=== PATIENT | male | born 1930 | race Caucasian/White ===

== ENCOUNTER 2017-07-31 13:46 | Inpatient (IN) | payer MEDICARE, MEDICAID ==
[2017-07-31 14:43] LABS: % BASOPHILS 0.1 % (0.0-2.0); % EOSINOPHILS 0.2 % (0.0-5.0); % LYMPHOCYTES 12.9 % (20.0-50.0); % MONOCYTES 5.6 % (2.0-10.0); % NEUTROPHILS 81.2 % (40.0-80.0); HEMATOCRIT 35.9 % (39.0-49.0); HEMOGLOBIN 12.2 gm/dL (12.6-17.4); MEAN CELL VOLUME 97.8 fl (80-99); MEAN CORPUSCULAR HEMOGLOBIN 33.2 pg (27.0-31.0); MEAN PLATELET VOLUME 7.2 fl; NEUTROPHILE ABSOLUTE 8.7 Th/cmm (1.8-8.0); PLATELET COUNT 187 Th/cmm (150-400); RED BLOOD COUNT 3.66 Mil/cmm (3.80-5.80); RED CELL DISTRIBUTION WIDTH 14.5 % (11.5-20.0); WHITE BLOOD COUNT 10.7 Th/cmm (4.8-10.8)
--- NOTE | 2017-07-31 14:43 | Diagnostic Imaging Report ---
CHEST X-RAY: AP view INDICATION: Shortness of breath COMPARISON: None FINDINGS: Bilateral pleural plaque formation is seen with parenchymal changes also noted. Heart size is normal. Bibasal pleural thickening is noted. Atherosclerosis is noted. Degenerative changes of the spine are noted. 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 Parenchymal disease is also seen greatest within the right lower lung zone. Findings may be chronic, however, superimposed acute infiltrate cannot be excluded. Please correlate clinically. Atherosclerotic vascular disease.
--- NOTE | 2017-07-31 14:44 | ED Physician Chart ---
Chief Complaint/HPI - Patient Information Date Seen:: 07/31/17 Time Seen:: 14:20 Chief Complaint:: AGRESSSIVE History of Present Illness:: THIS IS AN 87 YO MALE WHO HAS BEEN GETTING AGGRESSIVE LATELY AND IS BEING TAKEN CARE OF AT HOME. HIS FAMILY THINKS THAT HE NEEDS GEROPSYCH TREATMENT BECAUSE OF HIS COMBATIVENESS. Allergies:: Allergies Allergy/AdvReac Type Severity Reaction Status Date / Time No Known Allergies Allergy Verified 07/31/17 14:06 Vitals:: Vital Signs - 8 hr 07/31/17 14:13 Temp 97.8 F HR 74 RR 16 BP 129/74 O2 Sat % 96 Historian:: Family Member Review:: Nurse's Note Reviewed Review of Systems - Review of Systems General/Constitutional: No fever, No chills, No weight loss, No weakness, No diaphoresis, No edema, No loss of appetite Skin: No skin lesions, No rash, No bruising Head: No headache, No light-headedness Eyes: No loss of vision, No pain, No diplopia ENT: No earache, No nasal drainage, No sore throat, No tinnitus Neck: No neck pain, No swelling, No thyromegaly, No stiffness, No mass noted Cardio Vascular: No chest pain, No palpitations, No PND, No orthopnea, No edema Pulmonary: No SOB, No cough, No sputum, No wheezing GI: No nausea, No vomiting, No diarrhea, No pain, No melena, No hematochezia, No constipation, No hematemesis G/U: No dysuria, No frequency, No hematuria Musculoskeletal: No bone or joint pain, No back pain, No muscle pain Endocrine: No polyuria, No polydipsia Psychiatric: Prior psych history, No depression, No anxiety, No suicidal ideation Hematopoietic: No bruising, No lymphadenopathy Allergic/Immuno: No urticaria, No angioedema Neurological: No syncope, No focal symptoms, Weakness, No paresthesia, No headache, No seizure, No dizziness, Confusion, No vertigo Past Medical History - Past Medical History Obtainable: Yes Past Medical History: HTN, Asthma/COPD, CVA/TIA, Dementia Family History: None Social History: Non Smoker, No Alcohol, No Drug Use, Other (FAMILY) Family Medical History - Family Member Mother History Unknown: Yes Hx Family Cancer: No Hx Family Coronary Artery Disease: No Hx Family Hypertension: No Hx Family Diabetes: No Hx Family Seizures: No Physical Exam - Physical Examination General/Constitutional: Awake, Well-developed, well-nourished, Alert, No distress, GCS 15, Non-toxic appearing Other Gen/Cons comments:: IN A WHEEL CHAIR Head: Atraumatic Eyes: Lids, conjuctiva normal, PERRL, EOMI Skin: Nl inspection, No rash, No skin lesions, No ecchymosis, Well hydrated, No lymphadenopathy ENMT: External ears, nose nl, Nasal exam nl, Lips, teeth, gums nl Other ENMT comments:: [place] Neck: Nontender, Full ROM w/o pain, No JVD, No nuchal rigidity, No bruit, No mass, No stridor Respiratory: Nl effort/Exclusion, Clear to Auscultation, No Wheeze/Rhonchi/Rales Cardio Vascular: RRR, No murmur, gallop, rubs, NL S1 S2 GI: No tenderness/rebounding/guarding, No organomegaly, No hernia, Normal BS's, Nondistended, No mass/bruits, No McBurney tenderness : No CVA tenderness Extremities: No tenderness or effusion, Full ROM, normal strength in all extremities, No edema, Normal digits & nails Neuro/Psych: Alert/oriented, DTR's symmetric, Normal sensory exam, Judgement/ insight normal, Mood normal, No focal deficits Other Neuro/Psych comments:: LOWER EXTREMITY WEAKNESS Misc: normal gait, Normal back, No paraspinal tenderness Labs/Radiology/EKG Results - Lab Results Results: Abnormal Lab Results 07/31/17 07/31/17 07/31/17 14:25 14:25 14:25 WBC 10.7 RBC 3.66 L Hgb 12.2 L Hct 35.9 L MCV 97.8 MCH 33.2 H MCHC Differential 34.0 RDW 14.5 Plt Count 187 MPV 7.2 Neutrophils % 81.2 H Lymphocytes % 12.9 L Monocytes % 5.6 Eosinophils % 0.2 Basophils % 0.1 PT 10.0 INR 0.96 PTT (Actin FS) 25.5 L Sodium Potassium Chloride Carbon Dioxide Anion Gap BUN Creatinine Est GFR ( Amer) Est GFR (Non-Af Amer) BUN/Creatinine Ratio Glucose Calcium Total Bilirubin AST ALT Alkaline Phosphatase Total Protein Albumin Globulin Albumin/Globulin Ratio Triglycerides 187 H Cholesterol 162 LDL Cholesterol Direct 86 HDL Cholesterol 53 07/31/17 14:25 WBC RBC Hgb Hct MCV MCH MCHC Differential RDW Plt Count MPV Neutrophils % Lymphocytes % Monocytes % Eosinophils % Basophils % PT INR PTT (Actin FS) Sodium 131 L Potassium 4.4 Chloride 97 L Carbon Dioxide 26.5 Anion Gap 11.9 BUN 21 Creatinine 1.3 Est GFR ( Amer) TNP Est GFR (Non-Af Amer) TNP BUN/Creatinine Ratio 16.2 Glucose 180 H Calcium 9.4 Total Bilirubin 0.6 AST 25 ALT 10 Alkaline Phosphatase 56 Total Protein 7.4 Albumin 3.8 L Globulin 3.6 Albumin/Globulin Ratio 1.1 Triglycerides Cholesterol LDL Cholesterol Direct HDL Cholesterol - Radiology Results Results: CHEST X-RAY = DIFFUSE BILATERAL PLEURAL PLAQUE. - EKG Interpretations EKG Time:: 14:03 Rate & Rhythm: RATE=71 NSR Inez: LEFT AXIS Intervals: FLIPPED T WAVES IN EVERY LATERAL LEAD Assessment - Assessment General Assessment: ELEVATED TROPONIN MENTAL DISORDER ED Septic Shock - . Is Septic Shock (SBP<90, OR Lactate>4 mmol\L) present?: No - <6hrs of presentation: Vital Signs: Vital Signs - 8 hr 07/31/17 14:13 Temp 97.8 F HR 74 RR 16 BP 129/74 O2 Sat % 96 Reassessment (Disposition) - Reassessment Reassessment Condition:: Unchanged - Diagnosis Diagnosis:: ELEVATED TROPONIN MENTAL DISORDER. - Patient Disposition Discharge/Transfer:: Acute Care w/in this hosp Admitted to:: Telemetry Admitting Medical Physician:: Enzo Adames Admitting Psych Physician:: Barbi Colon Condition at Disposition:: Unchanged ED Discharge Plan - Patient Disposition Admit/Discharge/Transfer: Acute Care w/in this hosp Condition at Disposition: Unchanged Instructions: Psychosis
[2017-07-31 14:46] LABS: INR 0.96 (0.5-1.4)
[2017-07-31 14:51] LABS: ALB/GLOB RATIO 1.1 (1.0-1.8); ALKALINE PHOSPHATASE 56 U/L (34-104); ANION GAP 11.9 (7.0-16.0); BILIRUBIN,TOTAL 0.6 mg/dL (0.3-1.0); BUN - UREA NITROGEN 21 mg/dL (7-25); BUN/CREATININE RATIO 16.2; CALCIUM SERUM 9.4 mg/dL (8.6-10.3); CARBON DIOXIDE 26.5 mEq/L (21.0-31.0); CHLORIDE 97 mEq/L (98-107); CHOLESTEROL 162 mg/dL (<200); CREATININE - SERUM 1.3 mg/dL (0.7-1.3); GLUCOSE 180 mg/dL (70-105); POTASSIUM SERUM 4.4 mEq/L (3.5-5.1); SGOT 25 U/L (13-39); SGPT/ALT 10 U/L (7-52); SODIUM SERUM 131 mEq/L (136-145); TRIGLYCERIDES 187 mg/dL (<150)
[2017-07-31] MEDS ORDERED: Sodium Chloride 0.9% 1,000 ML IV ONE (19:45)
[2017-07-31] MEDS ORDERED: Enoxaparin 60 mg/0.6 mL 0.6mL Syr SUBQ SCH (19:45)
[2017-07-31] MEDS: Enoxaparin 60 mg/0.6 mL 0.6mL Syr SUBQ SCH (20:53)
--- NOTE | 2017-08-01 02:25 | Consultation ---
DATE OF CONSULTATION: 07/31/[address] Adames. HISTORY AND PHYSICAL: This is an 87-year-old male patient, who was brought in for Geropsych evaluation due to aggressive behavior and combative during the Emergency Room. The patient had elevated troponin level and the patient is admitted. Cardiology consult is requested. PAST MEDICAL HISTORY: The patient has a history of hypertension, asthma, COPD, CVA, TIA, dementia. FAMILY HISTORY: Unremarkable. SOCIAL HISTORY: No history of smoking or alcohol abuse. Allergies: None. PHYSICAL EXAMINATION: VITAL SIGNS: Blood pressure 130/80, pulse 88, respirations . HEAD: Normocephalic. No lumps or bumps. EYES: Pupils equal, reactive to light. Fundi show AV nicking, sclerae white, conjunctivae pink. NECK: Carotid 2+. Normal upstroke. JVD flat. Thyroid not palpable. Lymph nodes not palpable. CHEST: Shows increased AP diameter. No kyphosis, scoliosis. LUNGS: Bilateral bronchovesicular breath sounds. Occasional wheeze. HEART: PMI fifth intercostal space with lateral to midclavicular line. S1, S2. No S3, soft S4. Systolic murmur, grade 2/6, lower left sternal border without radiation. ABDOMEN: Soft. Liver and spleen are not palpable. No organomegaly. Bowel sounds are active. NEUROLOGIC: Unremarkable. EXTREMITIES: Peripheral pulses 2+. No pedal edema. CLINICAL IMPRESSION: 1. Non-ST elevation myocardial infarction. 2. Hypertension. 3. Asthma. 4. Chronic obstructive pulmonary disease. 5. CVA. 6. Transient ischemic attack. 7. Dementia. PLAN: Get echocardiogram, troponin level. Start the patient on Lovenox. JOB# [id number]
--- NOTE | 2017-08-01 08:21 | History and Physical ---
History of Present Illness - HPI Chief Complaint: Increased in agitation HPI: This is a patient that was send to [facility] but in ER was found elevated troponins and was sent to Telemetry. Vital Signs: Last Vital Signs Temp 98.8 F 08/01/17 04:00 Pulse 72 08/01/17 04:00 Resp 19 08/01/17 04:00 BP 128/62 08/01/17 04:00 Pulse Ox 96 08/01/17 04:00 Past Medical History Cardiovascular: Report: CAD, HTN Pulmonary: Report: Other (Possible asbestosis) [employer]: Report: Dementia GI: Report: No Pertinent Hx Psych: Report: Psychosis Musculoskeletal: Report: No Pertinent Hx Rheumatologic: Report: No pertinent Hx Infectious Disease: Report: No Pertinent Hx Renal/: Report: No Pertinent Hx Endocrine: Report: No Pertinent Hx Dermatology: Report: No Pertinent Hx - Past Surgical History Past Surgical History: No pertinent Hx Family Medical History - Family Member Mother History Unknown: Yes Hx Family Cancer: No Hx Family Coronary Artery Disease: No Hx Family Hypertension: No Hx Family Diabetes: No Hx Family Seizures: No Social History Smoke: No Alcohol: None Drugs: None Lives: With Family Domestic Violence: Negative Health Maintenance Health Maintenance: Cholesterol - Medications Home Medications: Home Medication Medication Instructions Recorded Type Clonidine HCl [Catapres] 0.1 mg PO Q6HR PRN 07/31/[address] [Depakote DR] 250 mg PO BID 07/31/17 History Lorazepam [Ativan] 1 mg PO Q4HR PRN 07/31/17 History Lovastatin [Altoprev] 40 mg PO DAILY 07/31/17 History Sennosides A and B [Senna] 8.6 mg PO DAILY 07/31/17 History Trazodone HCl 100 mg PO HS 07/31/17 History Triazolam 0.25 mg PO HS 07/31/17 History - Allergies Allergies/Adverse Reactions: Allergies Allergy/AdvReac Type Severity Reaction Status Date / Time No Known Allergies Allergy Verified 07/31/17 14:06 Review of Systems - Review of Systems Constitutional: Report: No Significant Eyes: Report: No Significant ENT: Report: No Significant Respiratory: Report: No Significant Cardiovascular: Report: No Significant Gastrointestinal: Report: No Significant Genitourinary: Report: No Significant Musculoskeletal: Report: No Significant Skin: Report: No Significant Neurological: Report: Other (Increased in agitation) Physical Exam - Physical Exam HEENT: Report: Ears Nose Throat within normal limits Neck: Report: Within normal limits Cardiovascular Systems: Report: Regular, Rate and Rhythm Respiratory: Report: Breath Sounds are within normal limits Abdomen: Report: Non-tender to palpation Back: Report: Inspection of back is within normal limits. Extremities: Report: Non-tender to palpation. Skin: Report: Color of skin is within normal limits Neuro/Psych: Report: Disoriented to name time or place - Lab Results All Lab Results last 24 hours: Laboratory Last Values WBC 10.7 Th/cmm (4.8-10.8) 07/31/17 14:25 RBC 3.66 Mil/cmm (3.80-5.80) L 07/31/17 14:25 Hgb 12.2 gm/dL (12.6-17.4) L 07/31/17 14:25 Hct 35.9 % (39.0-49.0) L 07/31/17 14:25 MCV 97.8 fl (80-99) 07/31/17 14:25 MCH 33.2 pg (27.0-31.0) H 07/31/17 14:25 MCHC Differential 34.0 pg (28.0-36.0) 07/31/17 14:25 RDW 14.5 % (11.5-20.0) 07/31/17 14:25 Plt Count 187 Th/cmm (150-400) 07/31/17 14:25 MPV 7.2 fl 07/31/17 14:25 Neutrophils % 81.2 % (40.0-80.0) H 07/31/17 14:25 Lymphocytes % 12.9 % (20.0-50.0) L 07/31/17 14:25 Monocytes % 5.6 % (2.0-10.0) 07/31/17 14:25 Eosinophils % 0.2 % (0.0-5.0) 07/31/17 14:25 Basophils % 0.1 % (0.0-2.0) 07/31/17 14:25 PT 10.0 SECONDS (9.5-11.5) 07/31/17 14:25 INR 0.96 (0.5-1.4) 07/31/17 14:25 PTT (Actin FS) 25.5 SECONDS (26.0-38.0) L 07/31/17 14:25 Sodium 131 mEq/L (136-145) L 07/31/17 14:25 Potassium 4.4 mEq/L (3.5-5.1) 07/31/17 14:25 Chloride 97 mEq/L (98-107) L 07/31/17 14:25 Carbon Dioxide 26.5 mEq/L (21.0-31.0) 07/31/17 14:25 Anion Gap 11.9 (7.0-16.0) 07/31/17 14:25 BUN 21 mg/dL (7-25) 07/31/17 14:25 Creatinine 1.3 mg/dL (0.7-1.3) 07/31/17 14:25 Est GFR ( Amer) TNP 07/31/17 14:25 Est GFR (Non-Af Amer) TNP 07/31/17 14:25 BUN/Creatinine Ratio 16.2 07/31/17 14:25 Glucose 180 mg/dL (70-105) H 07/31/17 14:25 Hemoglobin A1c % 5.2 % (4.0-6.0) 07/31/17 14:25 Calcium 9.4 mg/dL (8.6-10.3) 07/31/17 14:25 Total Bilirubin 0.6 mg/dL (0.3-1.0) 07/31/17 14:25 AST 25 U/L (13-39) 07/31/17 14:25 ALT 10 U/L (7-52) 07/31/17 14:25 Alkaline Phosphatase 56 U/L (34-104) 07/31/17 14:25 Troponin I 0.05 ng/mL (0.01-0.05) 08/01/17 06:15 Total Protein 7.4 gm/dL (6.0-8.3) 07/31/17 14:25 Albumin 3.8 gm/dL (4.2-5.5) L 07/31/17 14:25 Globulin 3.6 gm/dL 07/31/17 14:25 Albumin/Globulin Ratio 1.1 (1.0-1.8) 07/31/17 14:25 Triglycerides 187 mg/dL (<150) H 07/31/17 14:25 Cholesterol 162 mg/dL (<200) 07/31/17 14:25 LDL Cholesterol Direct 86 mg/dL (75-193) 07/31/17 14:25 HDL Cholesterol 53 mg/dL (23-92) 07/31/17 14:25 TSH 2.27 uIU/ml (0.34-5.60) 07/31/17 14:25 Laboratory Results - last 24 hr 08/01/17 06:15 Troponin I 0.05 - Assessment Assessment: patient is awake, confused, not cooperative. Dx: Elevated troponins, increased in agitation, Psychosis, Dementia - Plan Plan: Consult with Cardio and Psychiatry requested. Continue with home meds. Will continue to monitor.
[2017-08-01] MEDS ORDERED: Pneumococcal Vaccine 0.5 mL Vial IM ONE (09:00)
[2017-08-01] MEDS ORDERED: LOVASTATIN 40 MG PO SCH (09:00)
--- NOTE | 2017-08-01 12:12 | Consultation ---
DATE OF CONSULTATION: 08/01/2017 HISTORY OF PRESENT ILLNESS: An 87-year-old male, more aggressive and more confused. Family concerned, more combative. On [id number], the patient is AO to name, place. He has no idea why he is here. He does not know the month, the year, and the day of the week. Denies overt depression, poor historian, states he has absolutely no medical problems. PAST PSYCHIATRIC HISTORY: Dementia per documentation. FAMILY HISTORY: None. SOCIAL HISTORY: The patient states he was born in [place], , 4 kids. Denies drugs. Denies alcohol. Denies tobacco. Believes he is in [facility]. PAST MEDICAL HISTORY: Hypertension, CVA, asthma and COPD. MENTAL STATUS EXAMINATION: Stated age, appearing suspicious, under the blankets only exposing one eye. Mood "okay." Affect flat. Thought processes were disoriented. No overt SI or HI, but seems suspicious and he was combative at home, more confused. Poor insight, poor judgment, and poor impulse control. PROVISIONAL DIAGNOSES: Dementia with behavioral disturbances; psychosis, unspecified; mood, unspecified. MEDICAL: Please see full H and P. RECOMMENDATIONS AND PLAN: The patient will likely need Geropsych placement due to his behavioral disturbances. We will add Aricept and Namenda, consider antipsychotic. JOB# [id number]
--- NOTE | 2017-08-01 20:46 | Consultation ---
DATE OF CONSULTATION: 07/31/[address] Enzo Adames. HISTORY AND PHYSICAL: This is an 87-year-old male patient who was brought to the Emergency Room for confusion and agitation. In the Emergency Room, the patient was found to have slightly elevated troponin level and hence the patient is admitted to telemetry bed. PAST MEDICAL HISTORY: Stable angina, hypertension, and psychosis. FAMILY HISTORY: Unremarkable. SOCIAL HISTORY: No history of smoking or alcohol abuse. ALLERGIES: None. PHYSICAL EXAMINATION: VITAL SIGNS: Blood pressure 130/80, pulse 70, and respirations 20. HEAD: Normocephalic. No lumps or bumps. EYES: Pupils are equal and reactive to light. Fundi show AV nicking, sclerae white, and conjunctivae pink. NECK: Carotid 2+. Normal upstroke. JVD flat. Thyroid not palpable. Lymph nodes not palpable. CHEST: Shows increased AP diameter. No kyphosis or scoliosis. LUNGS: Bilateral bronchovesicular breath sounds. Occasional wheeze. No rales. HEART: PMI fifth intercostal space with lateral to midclavicular line. S1 and S2. No S3, soft S4, systolic murmur, grade 2/6, lower left sternal border without radiation. ABDOMEN: Soft. Liver and spleen not palpable. No organomegaly. Bowel sounds are active. NEUROLOGIC: Unremarkable. EXTREMITIES: Peripheral pulses 2+. No pedal edema. CLINICAL IMPRESSION: Non-ST elevation myocardial infarction, stable angina, hypertension, and psychosis. PLAN: Admit the patient. We will continue to monitor on telemetry bed. Repeat troponin level. Get an echocardiogram. JOB# [id number]
[2017-08-01] MEDS ORDERED: Non-Formulary Item 1 EA (Trazodone Hcl [Trazodone Hcl] 100 MG) PO SCH (21:00)
[2017-08-01] MEDS ORDERED: TRIAZOLAM 0.25 MG PO SCH (21:00)
[2017-08-01] MEDS: Enoxaparin 60 mg/0.6 mL 0.6mL Syr SUBQ SCH (21:41)
[2017-08-02 05:37] LABS: % BASOPHILS 0.6 % (0.0-2.0); % EOSINOPHILS 1.3 % (0.0-5.0); % LYMPHOCYTES 38.6 % (20.0-50.0); % MONOCYTES 11.3 % (2.0-10.0); % NEUTROPHILS 48.2 % (40.0-80.0); HEMOGLOBIN 11.9 gm/dL (12.6-17.4); MEAN CELL VOLUME 98.3 fl (80-99); MEAN CORPUSCULAR HEMOGLOBIN 33.5 pg (27.0-31.0); MEAN CORPUSCULAR HGB CONC 34.1 pg (28.0-36.0); MEAN PLATELET VOLUME 7.3 fl; NEUTROPHILE ABSOLUTE 2.4 Th/cmm (1.8-8.0); PLATELET COUNT 168 Th/cmm (150-400); RED BLOOD COUNT 3.56 Mil/cmm (3.80-5.80); RED CELL DISTRIBUTION WIDTH 14.3 % (11.5-20.0)
[2017-08-02 05:49] LABS: WHITE BLOOD COUNT 5.1 Th/cmm (4.8-10.8)
[2017-08-02 06:02] LABS: ALB/GLOB RATIO 1.1 (1.0-1.8); ALKALINE PHOSPHATASE 44 U/L (34-104); ANION GAP 8.9 (7.0-16.0); BILIRUBIN,TOTAL 0.5 mg/dL (0.3-1.0); BUN - UREA NITROGEN 15 mg/dL (7-25); BUN/CREATININE RATIO 21.4; CALCIUM SERUM 9.2 mg/dL (8.6-10.3); CHLORIDE 104 mEq/L (98-107); CREATININE - SERUM 0.7 mg/dL (0.7-1.3); GLUCOSE 103 mg/dL (70-105); POTASSIUM SERUM 3.9 mEq/L (3.5-5.1); SGOT 24 U/L (13-39); SGPT/ALT 10 U/L (7-52); SODIUM SERUM 137 mEq/L (136-145)
--- NOTE | 2017-08-02 09:32 | General Progress Note ---
Subjective - Review of Systems Service Date: 08/02/17 Subjective: I am fine Objective - Results Result Diagrams: 08/02/17 04:50 08/02/17 04:50 Recent Labs: Laboratory Last Values WBC 5.1 Th/cmm (4.8-10.8) D 08/02/17 04:50 RBC 3.56 Mil/cmm (3.80-5.80) L 08/02/17 04:50 Hgb 11.9 gm/dL (12.6-17.4) L 08/02/17 04:50 Hct 35.0 % (39.0-49.0) L 08/02/17 04:50 MCV 98.3 fl (80-99) 08/02/17 04:50 MCH 33.5 pg (27.0-31.0) H 08/02/17 04:50 MCHC Differential 34.1 pg (28.0-36.0) 08/02/17 04:50 RDW 14.3 % (11.5-20.0) 08/02/17 04:50 Plt Count 168 Th/cmm (150-400) 08/02/17 04:50 MPV 7.3 fl 08/02/17 04:50 Neutrophils % 48.2 % (40.0-80.0) 08/02/17 04:50 Lymphocytes % 38.6 % (20.0-50.0) 08/02/17 04:50 Monocytes % 11.3 % (2.0-10.0) H 08/02/17 04:50 Eosinophils % 1.3 % (0.0-5.0) 08/02/17 04:50 Basophils % 0.6 % (0.0-2.0) 08/02/17 04:50 PT 10.0 SECONDS (9.5-11.5) 07/31/17 14:25 INR 0.96 (0.5-1.4) 07/31/17 14:25 PTT (Actin FS) 25.5 SECONDS (26.0-38.0) L 07/31/17 14:25 Sodium 137 mEq/L (136-145) 08/02/17 04:50 Potassium 3.9 mEq/L (3.5-5.1) 08/02/17 04:50 Chloride 104 mEq/L (98-107) 08/02/17 04:50 Carbon Dioxide 28.0 mEq/L (21.0-31.0) 08/02/17 04:50 Anion Gap 8.9 (7.0-16.0) 08/02/17 04:50 BUN 15 mg/dL (7-25) 08/02/17 04:50 Creatinine 0.7 mg/dL (0.7-1.3) 08/02/17 04:50 Est GFR ( Amer) TNP 08/02/17 04:50 Est GFR (Non-Af Amer) TNP 08/02/17 04:50 BUN/Creatinine Ratio 21.4 08/02/17 04:50 Glucose 103 mg/dL (70-105) 08/02/17 04:50 Hemoglobin A1c % 5.2 % (4.0-6.0) 07/31/17 14:25 Calcium 9.2 mg/dL (8.6-10.3) 08/02/17 04:50 Total Bilirubin 0.5 mg/dL (0.3-1.0) 08/02/17 04:50 AST 24 U/L (13-39) 08/02/17 04:50 ALT 10 U/L (7-52) 08/02/17 04:50 Alkaline Phosphatase 44 U/L (34-104) 08/02/17 04:50 Troponin I 0.04 ng/mL (0.01-0.05) 08/01/17 16:31 Total Protein 6.8 gm/dL (6.0-8.3) 08/02/17 04:50 Albumin 3.5 gm/dL (4.2-5.5) L 08/02/17 04:50 Globulin 3.3 gm/dL 08/02/17 04:50 Albumin/Globulin Ratio 1.1 (1.0-1.8) 08/02/17 04:50 Triglycerides 187 mg/dL (<150) H 07/31/17 14:25 Cholesterol 162 mg/dL (<200) 07/31/17 14:25 LDL Cholesterol Direct 86 mg/dL (75-193) 07/31/17 14:25 HDL Cholesterol 53 mg/dL (23-92) 07/31/17 14:25 TSH 2.27 uIU/ml (0.34-5.60) 07/31/17 14:25 RPR NONREACTIVE (NONREACTIVE) 07/31/17 14:25 - Physical Exam Vitals and I&O: Vital Signs Temp 97.8 F 08/02/17 04:00 Pulse 75 08/02/17 04:00 Resp 19 08/02/17 04:00 BP 129/80 08/02/17 04:00 Pulse Ox 98 08/02/17 04:00 Intake & Output 08/01/17 08/02/17 08/02/17 18:59 06:59 18:59 Intake Total 720 Output Total 480 Balance 240 Weight (lbs) 54.431 kg 55.021 kg Intake: Oral 720 Output: Urine 480 Other: # Bowel Movements 1 Stool Characteristics Soft Soft Brown Brown Active Medications: Current Medications Divalproex Sodium (Depakote Dr) 250 mg PO BID [facility] PRN Reason: Protocol Stop: 09/30/17 08:59 Last Admin: 08/02/17 08:27 Dose: 250 mg Donepezil HCl (Aricept) 5 mg PO [facility] Stop: 09/30/17 20:59 Last Admin: 08/01/17 21:44 Dose: 5 mg Enoxaparin Sodium (Lovenox) 50 mg SUBQ Q24H [facility] Stop: 09/29/17 20:59 Last Admin: 08/01/17 21:41 Dose: 50 mg Lorazepam (Ativan) 0.5 mg PO Q6HR PRN; Protocol PRN Reason: Agitation Stop: 10/01/17 06:48 Memantine (Namenda) 5 mg PO DAILY [facility] Stop: 09/30/17 08:59 Last Admin: 08/02/17 08:27 Dose: 5 mg Miscellaneous (Triazolam [Triazolam]) 0.25 mg PO HS [facility] Stop: 09/30/17 20:59 Senna (Senna) 8.6 mg PO DAILY [facility] Stop: 09/30/17 08:59 Last Admin: 08/02/17 08:27 Dose: 8.6 mg Simvastatin (Zocor) 20 mg PO HS [facility] Stop: 09/30/17 20:59 Last Admin: 08/01/17 21:46 Dose: 20 mg Trazodone HCl (Desyrel) 100 mg PO [facility] Stop: 09/30/17 20:59 Last Admin: 08/01/17 21:44 Dose: 100 mg General: Alert, Other (Confused, not oriented) HEENT: Atraumatic Neck: Supple Cardiovascular: Regular rate Lungs: Clear to auscultation Abdomen: Bowel sounds, Soft Extremities: Other (No edema) Neurological: Normal speech, Other (Unstable gait) Assessment/Plan - Assessment Assessment: patient is awake, confused, cooperative. Troponis are normal. Dx: Elevated troponins, increased in agitation, Psychosis, Dementia - Plan Plan: Consult with Cardio and Psychiatry requested. Continue with home meds. Will continue to monitor.
--- NOTE | 2017-08-02 15:06 | Cardiology ---
08/01/[address] Adames M-MODE ECHOCARDIOGRAM: Mitral valve, anterior leaflet of mitral valve shows normal excursion, EF velocity. Posterior leaflet of mitral valve shows normal excursion. Left ventricular posterior wall shows increased thickness, normal excursion. Interventricular septum showed increased thickness, normal excursion, hypertrophy of the left ventricle, ejection fraction 50%. Left atrium normal. Aortic root shows normal dimension, normal excursion of aortic leaflets. 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 2D ECHO: Long axis view showed normal sized left ventricle with hypertrophy of the left ventricle. Left atrium normal. Aortic root shows normal dimension, normal excursion of aortic leaflets. Short axis view of mitral valve normal. Short axis view of aortic valve normal. Apical four chamber view showed normal sized left ventricle, left atrium, right ventricle, right atrium, tricuspid and mitral valve, ejection fraction 50%. 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 Doppler study shows mild tricuspid regurgitation, mild aortic regurgitation. [facility]# [id number]
--- NOTE | 2017-08-02 19:54 | Consultation ---
DATE OF CONSULTATION: 08/02/2017 SUBJECTIVE: The patient was seen, chart reviewed, discussed with staff. The patient is currently in the hospital on the med/surg unit/telemetry unit. HISTORY OF PRESENT ILLNESS: An 87-year-old male, recently aggressive, acting hard, pulling out lines, disrobing, confused, disoriented. Family is concerned, believes he needs Geropsych placement. On [id number], the patient, AO to name, place. He does not know why he is here. He does not know what is going on. Acting very bizarre, odd per staff. The patient's initiation of Aricept and Namenda, currently on Depakote. PAST PSYCH HISTORY: Dementia, cognitive decline. MENTAL STATUS EXAMINATION: Stated age, fair eye contact, confused, disoriented. No SI, no HI. ____ psychotic symptoms. Poor insight and poor judgment, PROVISIONAL DIAGNOSES: Dementia with behaviors, psychosis, unspecified; mood, unspecified. MEDICAL: Acute. RECOMMENDATION AND PLAN: Continue Aricept, continue Namenda. The patient may need initiation of an antipsychotic medication. We will also recommend Geropsych placement. JOB# [id number]
[2017-08-02] MEDS: Enoxaparin 60 mg/0.6 mL 0.6mL Syr SUBQ SCH (21:13)
[2017-08-03 07:07] LABS: ALB/GLOB RATIO 1.1 (1.0-1.8); ALKALINE PHOSPHATASE 44 U/L (34-104); BILIRUBIN,TOTAL 0.4 mg/dL (0.3-1.0); BUN - UREA NITROGEN 21 mg/dL (7-25); BUN/CREATININE RATIO 26.3; CALCIUM SERUM 8.6 mg/dL (8.6-10.3); CARBON DIOXIDE 28.1 mEq/L (21.0-31.0); CHLORIDE 104 mEq/L (98-107); CREATININE - SERUM 0.8 mg/dL (0.7-1.3); GLUCOSE 102 mg/dL (70-105); POTASSIUM SERUM 4.1 mEq/L (3.5-5.1); SGOT 17 U/L (13-39); SGPT/ALT 8 U/L (7-52); SODIUM SERUM 135 mEq/L (136-145)
[2017-08-03 07:23] LABS: % BASOPHILS 0.2 % (0.0-2.0); % EOSINOPHILS 1.1 % (0.0-5.0); % LYMPHOCYTES 35.9 % (20.0-50.0); % MONOCYTES 12.3 % (2.0-10.0); % NEUTROPHILS 50.5 % (40.0-80.0); HEMOGLOBIN 10.7 gm/dL (12.6-17.4); MEAN CELL VOLUME 97.4 fl (80-99); MEAN CORPUSCULAR HEMOGLOBIN 33.9 pg (27.0-31.0); MEAN CORPUSCULAR HGB CONC 34.8 pg (28.0-36.0); MEAN PLATELET VOLUME 7.4 fl; NEUTROPHILE ABSOLUTE 2.6 Th/cmm (1.8-8.0); PLATELET COUNT 160 Th/cmm (150-400); RED BLOOD COUNT 3.17 Mil/cmm (3.80-5.80); RED CELL DISTRIBUTION WIDTH 14.5 % (11.5-20.0); WHITE BLOOD COUNT 5.2 Th/cmm (4.8-10.8)
[2017-08-03 07:40] LABS: HEMATOCRIT 30.9 % (39.0-49.0)
--- NOTE | 2017-08-03 11:04 | General Progress Note ---
Subjective - Review of Systems Service Date: 08/03/17 Subjective: I am fine Objective - Results Result Diagrams: 08/03/17 06:07 08/03/17 06:07 Recent Labs: Laboratory Last Values WBC 5.2 Th/cmm (4.8-10.8) 08/03/17 06:07 RBC 3.17 Mil/cmm (3.80-5.80) L 08/03/17 06:07 Hgb 10.7 gm/dL (12.6-17.4) L 08/03/17 06:07 Hct 30.9 % (39.0-49.0) L D 08/03/17 06:07 MCV 97.4 fl (80-99) 08/03/17 06:07 MCH 33.9 pg (27.0-31.0) H 08/03/17 06:07 MCHC Differential 34.8 pg (28.0-36.0) 08/03/17 06:07 RDW 14.5 % (11.5-20.0) 08/03/17 06:07 Plt Count 160 Th/cmm (150-400) 08/03/17 06:07 MPV 7.4 fl 08/03/17 06:07 Neutrophils % 50.5 % (40.0-80.0) 08/03/17 06:07 Lymphocytes % 35.9 % (20.0-50.0) 08/03/17 06:07 Monocytes % 12.3 % (2.0-10.0) H 08/03/17 06:07 Eosinophils % 1.1 % (0.0-5.0) 08/03/17 06:07 Basophils % 0.2 % (0.0-2.0) 08/03/17 06:07 PT 10.0 SECONDS (9.5-11.5) 07/31/17 14:25 INR 0.96 (0.5-1.4) 07/31/17 14:25 PTT (Actin FS) 25.5 SECONDS (26.0-38.0) L 07/31/17 14:25 Sodium 135 mEq/L (136-145) L 08/03/17 06:07 Potassium 4.1 mEq/L (3.5-5.1) 08/03/17 06:07 Chloride 104 mEq/L (98-107) 08/03/17 06:07 Carbon Dioxide 28.1 mEq/L (21.0-31.0) 08/03/17 06:07 Anion Gap 7.0 (7.0-16.0) 08/03/17 06:07 BUN 21 mg/dL (7-25) 08/03/17 06:07 Creatinine 0.8 mg/dL (0.7-1.3) 08/03/17 06:07 Est GFR ( Amer) TNP 08/03/17 06:07 Est GFR (Non-Af Amer) TNP 08/03/17 06:07 BUN/Creatinine Ratio 26.3 08/03/17 06:07 Glucose 102 mg/dL (70-105) 08/03/17 06:07 Hemoglobin A1c % 5.2 % (4.0-6.0) 07/31/17 14:25 Calcium 8.6 mg/dL (8.6-10.3) 08/03/17 06:07 Total Bilirubin 0.4 mg/dL (0.3-1.0) 08/03/17 06:07 AST 17 U/L (13-39) 08/03/17 06:07 ALT 8 U/L (7-52) 08/03/17 06:07 Alkaline Phosphatase 44 U/L (34-104) 08/03/17 06:07 Troponin I 0.04 ng/mL (0.01-0.05) 08/01/17 16:31 Total Protein 6.0 gm/dL (6.0-8.3) 08/03/17 06:07 Albumin 3.1 gm/dL (4.2-5.5) L 08/03/17 06:07 Globulin 2.9 gm/dL 08/03/17 06:07 Albumin/Globulin Ratio 1.1 (1.0-1.8) 08/03/17 06:07 Triglycerides 187 mg/dL (<150) H 07/31/17 14:25 Cholesterol 162 mg/dL (<200) 07/31/17 14:25 LDL Cholesterol Direct 86 mg/dL (75-193) 07/31/17 14:25 HDL Cholesterol 53 mg/dL (23-92) 07/31/17 14:25 TSH 2.27 uIU/ml (0.34-5.60) 07/31/17 14:25 RPR NONREACTIVE (NONREACTIVE) 07/31/17 14:25 - Physical Exam Vitals and I&O: Vital Signs Temp 97.3 F 08/03/17 08:00 Pulse 59 08/03/17 09:58 Resp 18 08/03/17 08:00 BP 180/59 08/03/17 08:00 Pulse Ox 98 08/03/17 08:00 Intake & Output 08/02/17 08/03/17 08/03/17 18:59 06:59 18:59 Intake Total 1000 320 Balance 1000 320 Weight (lbs) 55.021 kg 57.107 kg Intake: Oral 1000 320 Other: # Voids 2 0 # Bowel Movements 0 Stool Characteristics Soft Soft Brown Brown Active Medications: Current Medications Divalproex Sodium (Depakote Dr) 250 mg PO BID [facility] PRN Reason: Protocol Stop: 09/30/17 08:59 Last Admin: 08/03/17 08:27 Dose: 250 mg Donepezil HCl (Aricept) 5 mg PO HS [facility] Stop: 09/30/17 20:59 Last Admin: 08/02/17 21:13 Dose: 5 mg Enoxaparin Sodium (Lovenox) 50 mg SUBQ Q24H [facility] Stop: 09/29/17 20:59 Last Admin: 08/02/17 21:13 Dose: 50 mg Lorazepam (Ativan) 0.5 mg PO Q6HR PRN; Protocol PRN Reason: Agitation Stop: 10/01/17 06:48 Last Admin: 08/02/17 11:47 Dose: 0.5 mg Memantine (Namenda) 5 mg PO DAILY [facility] Stop: 09/30/17 08:59 Last Admin: 08/03/17 08:27 Dose: 5 mg Miscellaneous (Triazolam [Triazolam]) 0.25 mg PO HS [facility] Stop: 09/30/17 20:59 Senna (Senna) 8.6 mg PO DAILY [facility] Stop: 09/30/17 08:59 Last Admin: 08/03/17 08:27 Dose: 8.6 mg Simvastatin (Zocor) 20 mg PO HS [facility] Stop: 09/30/17 20:59 Last Admin: 08/02/17 21:13 Dose: 20 mg Trazodone HCl (Desyrel) 100 mg PO HS [facility] Stop: 09/30/17 20:59 Last Admin: 08/02/17 21:13 Dose: 100 mg General: Alert, Other (Confused, not oriented) HEENT: Atraumatic Neck: Supple Cardiovascular: Regular rate Lungs: Clear to auscultation Abdomen: Bowel sounds, Soft Extremities: Other (No edema) Neurological: Normal speech, Other (Unstable gait) Assessment/Plan - Assessment Assessment: patient is awake, confused, cooperative. Troponis are normal. Dx: Elevated troponins, increased in agitation, Psychosis, Dementia - Plan Plan: Consult with Cardio and Psychiatry requested. Continue with home meds. Will continue to monitor.
--- NOTE | 2017-08-03 15:02 | Consultation ---
DATE OF CONSULTATION: 08/01/[address] Adames. HISTORY OF PRESENT ILLNESS: This is an 87-year-old male patient who is confused, depressed, reported to the Emergency Room with slightly elevated troponin level and hence Cardiology consult was requested. PAST MEDICAL HISTORY: Dementia and psychosis. FAMILY HISTORY: Unremarkable. SOCIAL HISTORY: No history of smoking, alcohol abuse. ALLERGIES: No known allergies. PHYSICAL EXAMINATION: VITAL SIGNS: Blood pressure 130/80, pulse 70, respirations 20. HEAD: Normocephalic. No lumps or bumps. EYES: Pupils equal, reactive to light. Fundi show AV nicking, sclerae white, conjunctivae pink. NECK: Carotid 2+. Normal upstroke. JVD flat. Thyroid not palpable. Lymph nodes not palpable. CHEST: Shows increased AP diameter. No kyphosis, scoliosis. LUNGS: Bilateral bronchovesicular breath sounds. HEART: PMI fifth intercostal space with lateral to midclavicular line. S1, S2. No S3, S4. Systolic murmur, grade 2/6, lower left sternal border without radiation. ABDOMEN: Soft. Liver, spleen not palpable. No organomegaly. Bowel sounds active. NEUROLOGIC: No focal neurological deficit. EXTREMITIES: Peripheral pulses 2+. No pedal edema. CLINICAL IMPRESSION: Psychosis, troponin elevated, etiology unknown, dementia, iron deficiency anemia. PLAN: The patient had an echocardiogram, which showed hypertrophy of the left ventricle, mild tricuspid regurgitation, aortic regurgitation. Continue present care. JOB# [id number]
[2017-08-03] MEDS ORDERED: Enoxaparin 60 mg/0.6 mL 0.6mL Syr SUBQ ONE (20:51)
[2017-08-03] MEDS: Enoxaparin 60 mg/0.6 mL 0.6mL Syr SUBQ SCH (20:54)
[2017-08-04 06:14] LABS: % BASOPHILS 0.7 % (0.0-2.0); % EOSINOPHILS 1.6 % (0.0-5.0); % NEUTROPHILS 43.7 % (40.0-80.0); HEMATOCRIT 28.5 % (39.0-49.0); HEMOGLOBIN 9.7 gm/dL (12.6-17.4); MEAN CELL VOLUME 97.6 fl (80-99); MEAN CORPUSCULAR HEMOGLOBIN 33.1 pg (27.0-31.0); MEAN CORPUSCULAR HGB CONC 33.9 pg (28.0-36.0); MEAN PLATELET VOLUME 7.4 fl; NEUTROPHILE ABSOLUTE 1.8 Th/cmm (1.8-8.0); PLATELET COUNT 143 Th/cmm (150-400); RED BLOOD COUNT 2.92 Mil/cmm (3.80-5.80); RED CELL DISTRIBUTION WIDTH 14.1 % (11.5-20.0); WHITE BLOOD COUNT 4.2 Th/cmm (4.8-10.8)
[2017-08-04 06:37] LABS: ALKALINE PHOSPHATASE 40 U/L (34-104); ANION GAP 8.2 (7.0-16.0); BILIRUBIN,TOTAL 0.4 mg/dL (0.3-1.0); BUN - UREA NITROGEN 23 mg/dL (7-25); BUN/CREATININE RATIO 28.8; CALCIUM SERUM 8.7 mg/dL (8.6-10.3); CHLORIDE 104 mEq/L (98-107); CREATININE - SERUM 0.8 mg/dL (0.7-1.3); GLUCOSE 105 mg/dL (70-105); POTASSIUM SERUM 4.2 mEq/L (3.5-5.1); SGOT 14 U/L (13-39); SGPT/ALT 5 U/L (7-52); SODIUM SERUM 135 mEq/L (136-145)
--- NOTE | 2017-08-04 08:46 | Discharge Summary ---
General Discharge Summary - Discharge Summary Date of Admission: 07/31/17 Admitting Diagnosis: Elevated troponins, Increased in agitation, Psychosis, Dementia Discharge Date: 08/04/17 Discharge Diagnosis: Elevated troponin, Increased in agitation, Psychosis, Dementia Laboratory Findings: Laboratory Tests 08/01/17 08/01/17 08/02/17 06:15 16:31 04:50 WBC 5.1 D RBC 3.56 L Hgb 11.9 L Hct 35.0 L MCV 98.3 MCH 33.5 H MCHC Differential 34.1 RDW 14.3 Plt Count 168 MPV 7.3 Neutrophils % 48.2 Lymphocytes % 38.6 Monocytes % 11.3 H Eosinophils % 1.3 Basophils % 0.6 Sodium Potassium Chloride Carbon Dioxide Anion Gap BUN Creatinine Est GFR ( Amer) Est GFR (Non-Af Amer) BUN/Creatinine Ratio Glucose Calcium Total Bilirubin AST ALT Alkaline Phosphatase Troponin I 0.05 0.04 Total Protein Albumin Globulin Albumin/Globulin Ratio 08/02/17 08/03/17 08/03/17 04:50 06:07 06:07 WBC 5.2 RBC 3.17 L Hgb 10.7 L Hct 30.9 L D MCV 97.4 MCH 33.9 H MCHC Differential 34.8 RDW 14.5 Plt Count 160 MPV 7.4 Neutrophils % 50.5 Lymphocytes % 35.9 Monocytes % 12.3 H Eosinophils % 1.1 Basophils % 0.2 Sodium 137 135 L Potassium 3.9 4.1 Chloride 104 104 Carbon Dioxide 28.0 28.1 Anion Gap 8.9 7.0 BUN 15 21 Creatinine 0.7 0.8 Est GFR ( Amer) TNP TNP Est GFR (Non-Af Amer) TNP TNP BUN/Creatinine Ratio 21.4 26.3 Glucose 103 102 Calcium 9.2 8.6 Total Bilirubin 0.5 0.4 AST 24 17 ALT 10 8 Alkaline Phosphatase 44 44 Troponin I Total Protein 6.8 6.0 Albumin 3.5 L 3.1 L Globulin 3.3 2.9 Albumin/Globulin Ratio 1.1 1.1 08/04/17 08/04/17 05:30 05:30 WBC 4.2 L RBC 2.92 L Hgb 9.7 L Hct 28.5 L MCV 97.6 MCH 33.1 H MCHC Differential 33.9 RDW 14.1 Plt Count 143 L MPV 7.4 Neutrophils % 43.7 Lymphocytes % 42.0 Monocytes % 12.0 H Eosinophils % 1.6 Basophils % 0.7 Sodium 135 L Potassium 4.2 Chloride 104 Carbon Dioxide 27.0 Anion Gap 8.2 BUN 23 Creatinine 0.8 Est GFR ( Amer) TNP Est GFR (Non-Af Amer) TNP BUN/Creatinine Ratio 28.8 Glucose 105 Calcium 8.7 Total Bilirubin 0.4 AST 14 ALT 5 L Alkaline Phosphatase 40 Troponin I Total Protein 5.9 L Albumin 3.0 L Globulin 2.9 Albumin/Globulin Ratio 1.0 Hospital Course: Patient was admitted to Med/Surg floor. He was started in IV NS, aspirin, Continue witn alf meds. Consult with cardiology and Psychiatry were done and recommendation were follow. Patient improved. Disposition: Discharge/Transfered to SNF Home Medications: Home Medication Medication Instructions Recorded Type Clonidine HCl [Catapres] 0.1 mg PO Q6HR PRN 07/31/[address] [Depakote DR] 250 mg PO BID 07/31/17 History Lorazepam [Ativan] 1 mg PO Q4HR PRN 07/31/17 History Lovastatin [Altoprev] 40 mg PO DAILY 07/31/17 History Sennosides A and B [Senna] 8.6 mg PO DAILY 07/31/17 History Trazodone HCl 100 mg PO HS 07/31/17 History Triazolam 0.25 mg PO HS 07/31/17 History Inpatient Medications: Current Medications Divalproex Sodium (Depakote Dr) 250 mg PO BID [facility] PRN Reason: Protocol Stop: 09/30/17 08:59 Last Admin: 08/04/17 08:30 Dose: 250 mg Donepezil HCl (Aricept) 5 mg PO HS [facility] Stop: 09/30/17 20:59 Last Admin: 08/03/17 20:50 Dose: 5 mg Enoxaparin Sodium (Lovenox) 50 mg SUBQ Q24H [facility] Stop: 09/29/17 20:59 Last Admin: 08/03/17 20:54 Dose: 50 mg Lorazepam (Ativan) 0.5 mg PO Q6HR PRN; Protocol PRN Reason: Agitation Stop: 10/01/17 06:48 Last Admin: 08/02/17 11:47 Dose: 0.5 mg Memantine (Namenda) 5 mg PO DAILY [facility] Stop: 09/30/17 08:59 Last Admin: 08/04/17 08:30 Dose: 5 mg Miscellaneous (Triazolam [Triazolam]) 0.25 mg PO HS [facility] Stop: 09/30/17 20:59 Senna (Senna) 8.6 mg PO DAILY [facility] Stop: 09/30/17 08:59 Last Admin: 08/04/17 08:30 Dose: 8.6 mg Simvastatin (Zocor) 20 mg PO [facility] Stop: 09/30/17 20:59 Last Admin: 08/03/17 20:51 Dose: 20 mg Trazodone HCl (Desyrel) 100 mg PO [facility] Stop: 09/30/17 20:59 Last Admin: 08/03/17 20:51 Dose: 100 mg Activity: Bed Rest Discharge Diet: 2 Gram Sodium Consults and Follow-Up: not on staff,PCP is [Primary Care Provider] - Consulting Speciality: Cardiac, Psychology Instructions: Psychosis
--- NOTE | 2017-08-05 02:07 | Progress Notes ---
DATE: 08/04/2017 Case was discussed with staff of the patient, reviewed records. The patient was seen by Dr. Richard because the patient was confused, demented, unable to carry on conversation or make safe plan for self-care. Very poor insight. Unable to make safe plan for self-care. Continues to be unable to carrying out conversation, unpredictable, impulsive, needing redirection. Diagnosed with dementia, psychosis. The patient needs transfer to [facility], continues to be agitative. Thank you very much for allowing me to participate in the care of this patient. JOB# [id number]
--- NOTE | 2017-08-05 10:01 | General Progress Note ---
Subjective - Review of Systems Service Date: 08/05/17 Subjective: I am fine Objective - Results Result Diagrams: 08/04/17 05:30 08/04/17 05:30 Recent Labs: Laboratory Last Values WBC 4.2 Th/cmm (4.8-10.8) L 08/04/17 05:30 RBC 2.92 Mil/cmm (3.80-5.80) L 08/04/17 05:30 Hgb 9.7 gm/dL (12.6-17.4) L 08/04/17 05:30 Hct 28.5 % (39.0-49.0) L 08/04/17 05:30 MCV 97.6 fl (80-99) 08/04/17 05:30 MCH 33.1 pg (27.0-31.0) H 08/04/17 05:30 MCHC Differential 33.9 pg (28.0-36.0) 08/04/17 05:30 RDW 14.1 % (11.5-20.0) 08/04/17 05:30 Plt Count 143 Th/cmm (150-400) L 08/04/17 05:30 MPV 7.4 fl 08/04/17 05:30 Neutrophils % 43.7 % (40.0-80.0) 08/04/17 05:30 Lymphocytes % 42.0 % (20.0-50.0) 08/04/17 05:30 Monocytes % 12.0 % (2.0-10.0) H 08/04/17 05:30 Eosinophils % 1.6 % (0.0-5.0) 08/04/17 05:30 Basophils % 0.7 % (0.0-2.0) 08/04/17 05:30 PT 10.0 SECONDS (9.5-11.5) 07/31/17 14:25 INR 0.96 (0.5-1.4) 07/31/17 14:25 PTT (Actin FS) 25.5 SECONDS (26.0-38.0) L 07/31/17 14:25 Sodium 135 mEq/L (136-145) L 08/04/17 05:30 Potassium 4.2 mEq/L (3.5-5.1) 08/04/17 05:30 Chloride 104 mEq/L (98-107) 08/04/17 05:30 Carbon Dioxide 27.0 mEq/L (21.0-31.0) 08/04/17 05:30 Anion Gap 8.2 (7.0-16.0) 08/04/17 05:30 BUN 23 mg/dL (7-25) 08/04/17 05:30 Creatinine 0.8 mg/dL (0.7-1.3) 08/04/17 05:30 Est GFR ( Amer) TNP 08/04/17 05:30 Est GFR (Non-Af Amer) TNP 08/04/17 05:30 BUN/Creatinine Ratio 28.8 08/04/17 05:30 Glucose 105 mg/dL (70-105) 08/04/17 05:30 Hemoglobin A1c % 5.2 % (4.0-6.0) 07/31/17 14:25 Calcium 8.7 mg/dL (8.6-10.3) 08/04/17 05:30 Total Bilirubin 0.4 mg/dL (0.3-1.0) 08/04/17 05:30 AST 14 U/L (13-39) 08/04/17 05:30 ALT 5 U/L (7-52) L 08/04/17 05:30 Alkaline Phosphatase 40 U/L (34-104) 08/04/17 05:30 Troponin I 0.04 ng/mL (0.01-0.05) 08/01/17 16:31 Total Protein 5.9 gm/dL (6.0-8.3) L 08/04/17 05:30 Albumin 3.0 gm/dL (4.2-5.5) L 08/04/17 05:30 Globulin 2.9 gm/dL 08/04/17 05:30 Albumin/Globulin Ratio 1.0 (1.0-1.8) 08/04/17 05:30 Triglycerides 187 mg/dL (<150) H 07/31/17 14:25 Cholesterol 162 mg/dL (<200) 07/31/17 14:25 LDL Cholesterol Direct 86 mg/dL (75-193) 07/31/17 14:25 HDL Cholesterol 53 mg/dL (23-92) 07/31/17 14:25 TSH 2.27 uIU/ml (0.34-5.60) 07/31/17 14:25 RPR NONREACTIVE (NONREACTIVE) 07/31/17 14:25 - Physical Exam Vitals and I&O: Vital Signs Temp 98.4 F 08/05/17 05:00 Pulse 58 08/05/17 05:00 Resp 18 08/05/17 05:00 BP 142/56 08/05/17 05:00 Pulse Ox 98 08/05/17 05:00 Intake & Output 08/04/17 08/05/17 08/05/17 18:59 06:59 18:59 Intake Total 300 240 Balance 300 240 Weight (lbs) 55.338 kg 56.79 kg Intake: Oral 300 240 Other: # Voids 4 3 # Bowel Movements 0 1 Stool Characteristics Soft Brown Active Medications: Current Medications Divalproex Sodium (Depakote Dr) 250 mg PO BID [facility] PRN Reason: Protocol Stop: 09/30/17 08:59 Last Admin: 08/05/17 08:17 Dose: 250 mg Donepezil HCl (Aricept) 5 mg PO HS [facility] Stop: 09/30/17 20:59 Last Admin: 08/04/17 20:49 Dose: 5 mg Enoxaparin Sodium (Lovenox) 50 mg SUBQ Q24H [facility] Stop: 09/29/17 20:59 Last Admin: 08/03/17 20:54 Dose: 50 mg Lorazepam (Ativan) 0.5 mg PO Q6HR PRN PRN Reason: Agitation Stop: 10/04/17 09:09 Memantine (Namenda) 5 mg PO DAILY [facility] Stop: 09/30/17 08:59 Last Admin: 08/05/17 08:17 Dose: 5 mg Miscellaneous (Triazolam [Triazolam]) 0.25 mg PO HS [facility] Stop: 09/30/17 20:59 Senna (Senna) 8.6 mg PO DAILY [facility] Stop: 09/30/17 08:59 Last Admin: 08/05/17 08:16 Dose: 8.6 mg Simvastatin (Zocor) 20 mg PO HS [facility] Stop: 09/30/17 20:59 Last Admin: 08/04/17 20:54 Dose: 20 mg Trazodone HCl (Desyrel) 100 mg PO HS [facility] Stop: 09/30/17 20:59 Last Admin: 08/04/17 20:52 Dose: 100 mg General: Alert, Other (Confused, not oriented) HEENT: Atraumatic Neck: Supple Cardiovascular: Regular rate Lungs: Clear to auscultation Abdomen: Bowel sounds, Soft Extremities: Other (No edema) Neurological: Normal speech, Other (Unstable gait) Assessment/Plan - Assessment Assessment: patient is awake, confused, cooperative. Troponis are normal. Dx: Elevated troponins, increased in agitation, Psychosis, Dementia - Plan Plan: Consult with Cardio and Psychiatry requested. Continue with home meds. Will be transfer to [facility]. Nutritional Asmnt/Malnutr-PDOC - Dietary Evaluation Malnutrition Findings (Please click <Entered> for more info): Nutritional Asmnt/Malnutrition Start: 08/03/17 12: 23 Text: Status: Complete Freq: Document 08/03/17 12:23 [email or web address] (Rec: 08/03/17 12:30 [id number]) Nutritional Asmnt/Malnutrition Patient General Information Nutritional Screening Consult Diagnosis Elevated troponin Pertinent Medical Hx/Surgical Hx Dementia Subjective Information Consult received due to glucose 180 on admission. Blood glucose has since normalized with HGA1C 5.2. oral intake is adequate to meet nutrient needs. Resting in bed at time of visit. Current Diet Order/ Nutrition Support 2gm Sodium Patient / S.O Not Indicated Pertinent Medications no nutrition related medications Pertinent Labs (08/03) albumin 3.1, (07/31) TAG 187, HGA1C 5.2 Nutritional Hx/Data Height 1.63 m Height (Calculated Centimeters) 162.6 Current Weight (lbs) 56.699 kg Weight (Calculated Kilograms) 56.7 Weight (Calculated Grams) 64049.0 [place] Body Weight 130 % [place] Body Weight 96 Recent Weight Change Yes Weight Status Approriate GI Symptoms GI Symptoms None Food Allergies No Cultural/Ethnic/Restorationist Belief None indicated Usual diet at home Regular Skin Integrity/Comment: Dk 14, intact Current %PO Good (75-100%) Estimated Nutritional Goals BEE in Kcals: Using Current wt Calories/Kcals/Kg 25-30 kcal/kg Kcals Calculated 9507-5107 kcal/day Protein: Using Current wt Protein g/kg: (1 gm/kg) Protein Calculated 55 gm/day Fluid: ml 0120-4762 ml/day (1 ml/kcal) Nutritional Problem 1. Problem Problem No nutrition diagnosis at this time. Intervention/Recommendation Comments 1. Continue 2gm sodium diet as tolerated by patient. Adequate to meet nutrient needs at this time. Expected Outcomes/Goals Expected Outcomes/Goals Oral intake >75% of meals, stable weight, blood glucose remains normal F/U LR in 7 days (08/10)
== END 2017-08-05 14:35 | DRG 281 ==
LOC: ER 13:46 → TELE 17:00 → MSI 08-01 16:55
PROVIDERS: ADMIT General Practice; ATTEND General Practice
DX: I21.4 Non-ST elevation (NSTEMI) myocardial infarction (principal); F03.91 Unspecified dementia, unspecified severity, with behavioral disturbance; J44.9 Chronic obstructive pulmonary disease, unspecified; F29 Unspecified psychosis not due to a substance or known physiological condition; I10 Essential (primary) hypertension; F39 Unspecified mood [affective] disorder; I25.119 Atherosclerotic heart disease of native coronary artery with unspecified angina pectoris; D50.9 Iron deficiency anemia, unspecified; I08.2 Rheumatic disorders of both aortic and tricuspid valves; Z86.73 Personal history of transient ischemic attack (TIA), and cerebral infarction without residual deficits; Z79.899 Other long term (current) drug therapy
CPT/HCPCS: 36415-UA; 71010-TC; 80053-TC; 80061-TC; 83036-90; 84443-TC; 84484-TC; 85025-TC; 85610-TC; 85730-TC; 86592-TC; 93005; J1650; J7030; Z7610

== ENCOUNTER 2017-08-05 14:36 | Inpatient (IN) | payer MEDICARE, MEDICAID ==
[2017-08-05 20:22] VITALS: BP 146/65
--- NOTE | 2017-08-05 22:55 | Progress Notes ---
DATE: 08/05/2017 Case was discussed with staff of the patient, reviewed records. The patient continues to be confused and irritable, continues to be demented, unable to carry on a conversation or make safe plan for self-care. Unable to take care of himself, impulsive, unpredictable. The patient needs to go to the [facility] with medically cleared and he is on Depakote 250 mg twice a day, Namenda 5 mg daily and trazodone at bedtime for lack of sleep Thank you very much for allowing me to participate in the care of this most interesting lady. JOB# [id number]
[2017-08-06] MEDS: Enoxaparin 60 mg/0.6 mL 0.6mL Syr SUBQ SCH (09:28)
--- NOTE | 2017-08-06 09:40 | History and Physical ---
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 GI: Report: No Pertinent Hx Psych: Report: Schizophrenia Musculoskeletal: Report: Weakness Rheumatologic: Report: No pertinent Hx Infectious Disease: Report: No Pertinent Hx Renal/: Report: No Pertinent Hx Endocrine: Report: No Pertinent Hx Dermatology: Report: No Pertinent Hx - Past Surgical History Past Surgical History: No pertinent Hx Family Medical History - Family Member Mother History Unknown: Yes Hx Family Cancer: No Hx Family Coronary Artery Disease: No Hx Family Hypertension: No Hx Family Diabetes: No Hx Family Seizures: No Social History Smoke: No Alcohol: None Drugs: None Lives: [facility] Domestic Violence: Negative - Medications Home Medications: Home Medication Medication Instructions Recorded Type Divalproex [Elina DURON] 250 mg PO BID tcp 08/05/17 Rx Donepezil Hcl [Aricept] 5 mg PO HS tab 08/05/17 Rx Enoxaparin [Lovenox] 50 mg SUBQ Q24H syr 08/05/17 Rx Lorazepam [Ativan] 0.5 mg PO Q6HR PRN tab 08/05/17 Rx Memantine [Namenda] 5 mg PO DAILY tab 08/05/17 Rx Sennosides A and B [Senna] 8.6 mg PO DAILY tab 08/05/17 Rx Simvastatin [Zocor*] 20 mg PO HS tab 08/05/17 Rx Triazolam [Triazolam] 0.25 mg PO HS 08/05/17 Rx cloNIDine HCl [Catapres] 0.1 mg PO Q6HR PRN tab 08/05/17 Rx traZODone HCl [Desyrel*] 100 mg PO HS tab 08/05/17 Rx - Allergies Allergies/Adverse Reactions: Allergies Allergy/AdvReac Type Severity Reaction Status Date / Time No Known Allergies Allergy Verified 07/31/17 14:06 Review of Systems - Review of Systems Constitutional: Report: No Significant Eyes: Report: No Significant ENT: Report: No Significant Respiratory: Report: No Significant Cardiovascular: Report: No Significant Gastrointestinal: Report: No Significant Genitourinary: Report: No Significant Musculoskeletal: Report: No Significant Skin: Report: No Significant Neurological: Report: Weakness, Incoordination Physical Exam - Physical Exam HEENT: Report: Ears Nose Throat within normal limits Neck: Report: Within normal limits Cardiovascular Systems: Report: Regular, Rate and Rhythm Respiratory: Report: Breath Sounds are within normal limits Abdomen: Report: Non-tender to palpation Back: Report: Inspection of back is within normal limits. Extremities: Report: No pedal edema was noted on inspection Skin: Report: Warm, Dry Neuro/Psych: Report: Disoriented to name time or place, Weakness or sensory loss noted. - Assessment Assessment: Patient is awake, calm in no acute distress. - Plan Plan: Patient is under psychiatric care. Will continue to monitor.
--- NOTE | 2017-08-06 12:40 | Psychosocial Evaluation ---
DATE OF SERVICE: 08/05/2017 IDENTIFYING INFORMATION: The patient is an 87-year-old male. CHIEF COMPLAINT: No answer. HISTORY OF PRESENT ILLNESS: The patient was transferred from the medical floor. The patient was admitted because of agitation, irritability. He was originally ____ to the medical floor, seen initially by Dr. Richard. The patient is demented, uninterested in a conversation, was being confused, irritable throughout admission. He has been compliant with the medication. PAST PSYCHIATRIC HISTORY: Psychosis, impulsivity and dementia. The patient is a poor historian. MEDICAL HISTORY: No known drug allergies. Deferred to the medical doctor. The patient has hyperlipidemia. MEDICATIONS: The patient has been on trazodone 100 mg at bedtime and Aricept 5 mg at bedtime, Depakote 250 mg twice a day. FAMILY AND SOCIAL HISTORY: Unobtainable. MENTAL STATUS EXAMINATION: The patient is appropriately dressed, not well groomed. He was alert, however, unable to carry on a conversation or make safe plan for self-care. He is able to tell me his date of but he cannot tell me what the date or how old he is. His long- and short-term memory is poor. He is easily agitated, irritable. His insight, unable to make safe plan for self-care. He denies any auditory or visual hallucination or paranoia. However, ____ may not understand the questions. His insight and judgment is impaired. IMPRESSION: AXIS I: Mood disorder, not otherwise specified, dementia. MEDICAL DIAGNOSIS: Deferred to the medical doctor. Her assets, he is accepting. Negative, poor coping skills. INITIAL TREATMENT PLAN: I will continue with his medication. We will do group therapy, milieu therapy, and individual therapy. ESTIMATED LENGTH OF STAY: 3-7 days. DISCHARGE CRITERIA: Decrease agitation, psychosis after discharge. JOB# [id number]
--- NOTE | 2017-08-07 13:51 | General Progress Note ---
Subjective - Review of Systems Service Date: 08/07/17 Subjective: I am OK Objective - Physical Exam Vitals and I&O: Vital Signs Temp 97 F 08/07/17 06:53 Pulse 62 08/07/17 06:53 Resp 18 08/07/17 06:53 BP 134/78 08/07/17 06:53 Pulse Ox 97 08/07/17 06:53 Intake & Output 08/06/17 08/07/17 08/07/17 18:59 06:59 18:59 Intake Total 1200 120 Balance 1200 120 Intake: Oral 1200 120 Other: # Voids 3 # Bowel Movements 1 Active Medications: Current Medications Divalproex Sodium (Depakote Dr) 250 mg PO BID [facility] PRN Reason: Protocol Stop: 10/05/17 08:59 Last Admin: 08/07/17 09:59 Dose: 250 mg Donepezil HCl (Aricept) 5 mg PO HS [facility] Stop: 10/04/17 20:59 Last Admin: 08/06/17 20:35 Dose: 5 mg Enoxaparin Sodium (Lovenox) 50 mg SUBQ Q24H [facility] Stop: 10/04/17 18:29 Last Admin: 08/06/17 09:28 Dose: Not Given Lorazepam (Ativan) 0.5 mg PO Q6HR PRN; Protocol PRN Reason: Agitation Stop: 10/04/17 18:18 Memantine (Namenda) 5 mg PO DAILY [facility] Stop: 10/05/17 08:59 Last Admin: 08/07/17 09:59 Dose: 5 mg Senna (Senna) 8.6 mg PO DAILY [facility] Stop: 10/05/17 08:59 Last Admin: 08/07/17 09:59 Dose: 8.6 mg Simvastatin (Zocor) 20 mg PO HS [facility] PRN Reason: Protocol Stop: 10/04/17 20:59 Last Admin: 08/06/17 20:35 Dose: 20 mg Trazodone HCl (Desyrel) 100 mg PO HS [facility] PRN Reason: Protocol Stop: 10/04/17 20:59 Last Admin: 08/06/17 20:34 Dose: 100 mg General: Alert, Other (Confused) HEENT: Atraumatic Neck: Supple Cardiovascular: Regular rate Lungs: Clear to auscultation Abdomen: Bowel sounds, Soft Extremities: Other (No edema) Neurological: Other (Non ambulatory) Skin: Other (Warm and dry) Psych/Mental Status: Other (Confused, not oriented) Assessment/Plan - Assessment Assessment: Patient is awake, calm in no acute distress. - Plan Plan: Patient is under psychiatric care. Will continue to monitor.
[2017-08-07] MEDS: Enoxaparin 60 mg/0.6 mL 0.6mL Syr SUBQ SCH (18:12)
--- NOTE | 2017-08-08 09:39 | General Progress Note ---
Subjective - Review of Systems Service Date: 08/08/17 Subjective: I am OK Objective - Physical Exam Vitals and I&O: Vital Signs Temp 0 F 08/08/17 07:08 Pulse 69 08/07/17 20:09 Resp 19 08/07/17 20:09 BP 140/54 08/07/17 20:09 Pulse Ox 96 08/07/17 20:09 Intake & Output 08/07/17 08/08/17 08/08/17 18:59 06:59 18:59 Intake Total 240 Balance 240 Intake: Oral 240 Other: # Voids 1 3 # Bowel Movements 0 Active Medications: Current Medications Divalproex Sodium (Depakote Dr) 250 mg PO BID [facility] PRN Reason: Protocol Stop: 10/05/17 08:59 Last Admin: 08/08/17 09:15 Dose: 250 mg Donepezil HCl (Aricept) 5 mg PO HS [facility] Stop: 10/04/17 20:59 Last Admin: 08/07/17 20:32 Dose: 5 mg Enoxaparin Sodium (Lovenox) 50 mg SUBQ Q24H [facility] Stop: 10/04/17 18:29 Last Admin: 08/07/17 18:12 Dose: 50 mg Lorazepam (Ativan) 0.5 mg PO Q6HR PRN; Protocol PRN Reason: Agitation Stop: 10/04/17 18:18 Memantine (Namenda) 5 mg PO DAILY [facility] Stop: 10/05/17 08:59 Last Admin: 08/08/17 09:16 Dose: 5 mg Senna (Senna) 8.6 mg PO DAILY [facility] Stop: 10/05/17 08:59 Last Admin: 08/08/17 09:15 Dose: 8.6 mg Simvastatin (Zocor) 20 mg PO HS [facility] PRN Reason: Protocol Stop: 10/04/17 20:59 Last Admin: 08/07/17 20:32 Dose: 20 mg Trazodone HCl (Desyrel) 100 mg PO HS [facility] PRN Reason: Protocol Stop: 10/04/17 20:59 Last Admin: 08/07/17 20:32 Dose: 100 mg General: Alert, Other (Confused) HEENT: Atraumatic Neck: Supple Cardiovascular: Regular rate Lungs: Clear to auscultation Abdomen: Bowel sounds, Soft Extremities: Other (No edema) Neurological: Other (Non ambulatory) Skin: Other (Warm and dry) Psych/Mental Status: Other (Confused, not oriented) Assessment/Plan - Assessment Assessment: Patient is awake, calm in no acute distress. - Plan Plan: Patient is under psychiatric care. Will continue to monitor.
--- NOTE | 2017-08-08 14:17 | Progress Notes ---
DATE: 08/07/2017 Case was discussed with staff of the patient, reviewed records. The patient is reported by the staff to be internally preoccupied, continues to have poor insight, continues to be unable to participate in meaningful conversation or make safe plan for self-care. Continues to be unpredictable, impulsive. He is compliant with the medication with no side effects, no sedation, no nausea. He is on Depakote and I will be ordering a Depakote level on him and so far no side effects with the medication, no sedation, no nausea. We will continue to work with the patient in group therapy, milieu therapy, and adjust medication as needed. JOB# [id number]
[2017-08-08] MEDS: Enoxaparin 60 mg/0.6 mL 0.6mL Syr SUBQ SCH (17:37)
--- NOTE | 2017-08-09 10:05 | General Progress Note ---
Subjective - Review of Systems Service Date: 08/09/17 Subjective: I am OK Objective - Physical Exam Vitals and I&O: Vital Signs Temp 96.1 F 08/08/17 22:25 Pulse 73 08/08/17 22:25 Resp 20 08/08/17 22:25 BP 146/58 08/08/17 22:25 Pulse Ox 98 08/08/17 22:25 Intake & Output 08/08/17 08/09/17 08/09/17 18:59 06:59 18:59 Intake Total 2400 120 Balance 2400 120 Intake: Oral 2400 120 Other: # Voids 3 3 # Bowel Movements 0 Active Medications: Current Medications Divalproex Sodium (Depakote Dr) 250 mg PO BID [facility] PRN Reason: Protocol Stop: 10/05/17 08:59 Last Admin: 08/08/17 17:41 Dose: 250 mg Donepezil HCl (Aricept) 5 mg PO HS [facility] Stop: 10/04/17 20:59 Last Admin: 08/08/17 21:22 Dose: 5 mg Enoxaparin Sodium (Lovenox) 50 mg SUBQ Q24H [facility] Stop: 10/04/17 18:29 Last Admin: 08/08/17 17:37 Dose: 50 mg Lorazepam (Ativan) 0.5 mg PO Q6HR PRN; Protocol PRN Reason: Agitation Stop: 10/04/17 18:18 Last Admin: 08/08/17 19:40 Dose: 0.5 mg Memantine (Namenda) 5 mg PO DAILY [facility] Stop: 10/05/17 08:59 Last Admin: 08/08/17 09:16 Dose: 5 mg Senna (Senna) 8.6 mg PO DAILY [facility] Stop: 10/05/17 08:59 Last Admin: 08/08/17 09:15 Dose: 8.6 mg Simvastatin (Zocor) 20 mg PO HS [facility] PRN Reason: Protocol Stop: 10/04/17 20:59 Last Admin: 08/08/17 21:22 Dose: 20 mg Trazodone HCl (Desyrel) 100 mg PO HS [facility] PRN Reason: Protocol Stop: 10/04/17 20:59 Last Admin: 08/08/17 21:22 Dose: 100 mg General: Alert, Other (Confused) HEENT: Atraumatic Neck: Supple Cardiovascular: Regular rate Lungs: Clear to auscultation Abdomen: Bowel sounds, Soft Extremities: Other (No edema) Neurological: Other (Non ambulatory) Skin: Other (Warm and dry) Psych/Mental Status: Other (Confused, not oriented) Assessment/Plan - Assessment Assessment: Patient is awake, calm in no acute distress. - Plan Plan: Patient is under psychiatric care. Will continue to monitor.
[2017-08-09] MEDS: Enoxaparin 60 mg/0.6 mL 0.6mL Syr SUBQ SCH ×2 (17:37→19:26)
--- NOTE | 2017-08-09 20:53 | Progress Notes ---
DATE: 08/08/2017 Case was discussed with staff of the patient, reviewed records. The patient continues to be confused, unpredictable, impulsive, needing redirection. Continues to have poor insight. Unable to make safe plan for self-care. He is compliant with the medication with no side effects, no sedation, no nausea, and no extrapyramidal symptoms. He was initiated on Namenda 5 mg a day and he is on Aricept 5 mg at bedtime. We will put the patient in group therapy, milieu therapy, and adjust medications as needed. JOB# [id number]
--- NOTE | 2017-08-10 03:43 | Progress Notes ---
DATE: 08/09/2017 Case was discussed with staff of the patient, reviewed records. The patient continues to be unpredictable, impulsive, needing redirection, though in general, he is showing progress. He is sleeping better, eating better, has been compliant with the medication with no side effects, no sedation, no nausea. I will be checking his Depakote level. The staff report that he is a bit more clear, able to talk better. He is demented, confused. No side effects of the medication, no sedation, no nausea. We will continue the patient in group therapy, milieu therapy, adjust the medication as needed. JOB# [id number]
--- NOTE | 2017-08-10 08:49 | General Progress Note ---
Subjective - Review of Systems Service Date: 08/10/17 Subjective: I am OK Objective - Physical Exam Vitals and I&O: Vital Signs Temp 0 F 08/10/17 06:54 Pulse 73 08/08/17 22:25 Resp 20 08/08/17 22:25 BP 146/58 08/08/17 22:25 Pulse Ox 98 08/08/17 22:25 Intake & Output 08/09/17 08/10/17 08/10/17 18:59 06:59 18:59 Intake Total 600 Balance 600 Intake: Oral 600 Other: # Voids 3 3 # Bowel Movements 0 0 Active Medications: Current Medications Divalproex Sodium (Depakote Dr) 250 mg PO BID [facility] PRN Reason: Protocol Stop: 10/05/17 08:59 Last Admin: 08/09/17 17:01 Dose: 250 mg Donepezil HCl (Aricept) 5 mg PO HS [facility] Stop: 10/04/17 20:59 Last Admin: 08/09/17 20:18 Dose: 5 mg Enoxaparin Sodium (Lovenox) 50 mg SUBQ Q24H [facility] Stop: 10/04/17 18:29 Last Admin: 08/09/17 19:26 Dose: 50 mg Lorazepam (Ativan) 0.5 mg PO Q6HR PRN; Protocol PRN Reason: Agitation Stop: 10/04/17 18:18 Last Admin: 08/09/17 17:30 Dose: 0.5 mg Memantine (Namenda) 5 mg PO DAILY [facility] Stop: 10/05/17 08:59 Last Admin: 08/09/17 09:40 Dose: Not Given Senna (Senna) 8.6 mg PO DAILY [facility] Stop: 10/05/17 08:59 Last Admin: 08/09/17 09:40 Dose: Not Given Simvastatin (Zocor) 20 mg PO HS [facility] PRN Reason: Protocol Stop: 10/04/17 20:59 Last Admin: 08/09/17 20:18 Dose: 20 mg Trazodone HCl (Desyrel) 100 mg PO HS [facility] PRN Reason: Protocol Stop: 10/04/17 20:59 Last Admin: 08/09/17 20:18 Dose: 100 mg General: Alert, Other (Confused) HEENT: Atraumatic Neck: Supple Cardiovascular: Regular rate Lungs: Clear to auscultation Abdomen: Bowel sounds, Soft Extremities: Other (No edema) Neurological: Other (Non ambulatory) Skin: Other (Warm and dry) Psych/Mental Status: Other (Confused, not oriented) Assessment/Plan - Assessment Assessment: Patient is awake, calm in no acute distress. - Plan Plan: Patient is under psychiatric care. Will continue to monitor.
--- NOTE | 2017-08-11 03:33 | Admit Criteria Form ---
Admit Criteria Forms - Admit Criteria Diagnosis: PSYCHIATRIC DISORDERS (Place 'X' for any and all applicable criteria): Ongoing inpatient care may be needed for 1 or more of the following(1)(2)(3)(4)( 6)(7)(8): [ ]I. Danger to self or others not manageable at lower level of care. [ ]II. Grave disability (eg, inability to perform self care necessary at lower level of care) [X ]III. Agitation or inappropriate behavior interfering with care for primary condition (eg, attempting to discontinue lines or drains prematurely, unable to cooperate with respiratory care) [ ]IV. Severe disability or disorder indicated by ALL of the following: [ ]a) Severe behavioral health disorder-related symptoms or condition indicated by 1 or more of the following: [ ]i) Severe problem with cognition, memory, judgment, or impulse control [ ]ii) Severe clinical manifestations (eg, hallucinations, delusions, other acute psychotic symptoms, madiha, extreme agitation or anxiety) [ ]b) Patient management at lower level of care is not feasible until acute intervention or modification is initiated. Extended stay beyond goal length of stay for the primary condition may be needed until ALLof the following are present(1)(2)(3)(4)(722)(23): [ ]a) Danger to self or others is absent or manageable at lower level of care [ ]b) Behavior crisis management, including physical or chemical restraints, is required and is not available at a lower level of care. [ ]c) Behavioral symptoms (e.g., agitation, somnolence, inappropriate behavior) are present, and are not manageable at a lower level of care. [ ]d) Patient cannot understand follow-up treatment and crisis plan. [ ]e) Provider and supports are sufficiently available at lower level of care. [ ]f) Patient can participate (e.g., verify absence of plan for harm) and is in needed of monitoring. The original [facility] [employer] content created by [facility] [employer] has been revised. The portions of the content which have been revised are identified through the use of italic text or in bold, and [facility] [employer] has neither reviewed nor approved the modified material. All other unmodified content is copyright [facility]. Please see references footnoted in the original [facility] edition 2017 Admit Criteria Met?: Yes
[2017-08-11 06:14] LABS: % LYMPHOCYTES 41.2 % (20.0-50.0); RED BLOOD COUNT 3.41 Mil/cmm (3.80-5.80)
[2017-08-11 06:15] LABS: % BASOPHILS 0.7 % (0.0-2.0); % EOSINOPHILS 0.8 % (0.0-5.0); % MONOCYTES 12.4 % (2.0-10.0); % NEUTROPHILS 44.9 % (40.0-80.0); HEMOGLOBIN 11.4 gm/dL (12.6-17.4); MEAN CELL VOLUME 98.4 fl (80-99); MEAN CORPUSCULAR HEMOGLOBIN 33.5 pg (27.0-31.0); MEAN PLATELET VOLUME 7.6 fl; NEUTROPHILE ABSOLUTE 1.8 Th/cmm (1.8-8.0)
[2017-08-11 06:22] LABS: WHITE BLOOD COUNT 3.9 Th/cmm (4.8-10.8)
[2017-08-11 06:23] LABS: HEMATOCRIT 33.6 % (39.0-49.0); PLATELET COUNT 182 Th/cmm (150-400)
[2017-08-11 06:24] LABS: ALKALINE PHOSPHATASE 45 U/L (34-104); ANION GAP 6.6 (7.0-16.0); BILIRUBIN,TOTAL 0.4 mg/dL (0.3-1.0); BUN - UREA NITROGEN 22 mg/dL (7-25); BUN/CREATININE RATIO 27.5; CALCIUM SERUM 9.1 mg/dL (8.6-10.3); CARBON DIOXIDE 29.7 mEq/L (21.0-31.0); CHLORIDE 101 mEq/L (98-107); CREATININE - SERUM 0.8 mg/dL (0.7-1.3); GLUCOSE 109 mg/dL (70-105); POTASSIUM SERUM 4.3 mEq/L (3.5-5.1); SGOT 27 U/L (13-39); SGPT/ALT 13 U/L (7-52); SODIUM SERUM 133 mEq/L (136-145)
[2017-08-11] MEDS: Enoxaparin 60 mg/0.6 mL 0.6mL Syr SUBQ SCH ×2 (07:48→17:54)
--- NOTE | 2017-08-11 08:46 | General Progress Note ---
Subjective - Review of Systems Service Date: 08/11/17 Subjective: I am OK Objective - Results Result Diagrams: 08/11/17 05:34 08/11/17 05:34 Recent Labs: Laboratory Last Values WBC 3.9 Th/cmm (4.8-10.8) L 08/11/17 05:34 RBC 3.41 Mil/cmm (3.80-5.80) L 08/11/17 05:34 Hgb 11.4 gm/dL (12.6-17.4) L 08/11/17 05:34 Hct 33.6 % (39.0-49.0) L D 08/11/17 05:34 MCV 98.4 fl (80-99) 08/11/17 05:34 MCH 33.5 pg (27.0-31.0) H 08/11/17 05:34 MCHC Differential 34.0 pg (28.0-36.0) 08/11/17 05:34 RDW 14.0 % (11.5-20.0) 08/11/17 05:34 Plt Count 182 Th/cmm (150-400) D 08/11/17 05:34 MPV 7.6 fl 08/11/17 05:34 Neutrophils % 44.9 % (40.0-80.0) 08/11/17 05:34 Lymphocytes % 41.2 % (20.0-50.0) 08/11/17 05:34 Monocytes % 12.4 % (2.0-10.0) H 08/11/17 05:34 Eosinophils % 0.8 % (0.0-5.0) 08/11/17 05:34 Basophils % 0.7 % (0.0-2.0) 08/11/17 05:34 Sodium 133 mEq/L (136-145) L 08/11/17 05:34 Potassium 4.3 mEq/L (3.5-5.1) 08/11/17 05:34 Chloride 101 mEq/L (98-107) 08/11/17 05:34 Carbon Dioxide 29.7 mEq/L (21.0-31.0) 08/11/17 05:34 Anion Gap 6.6 (7.0-16.0) L 08/11/17 05:34 BUN 22 mg/dL (7-25) 08/11/17 05:34 Creatinine 0.8 mg/dL (0.7-1.3) 08/11/17 05:34 Est GFR ( Amer) TNP 08/11/17 05:34 Est GFR (Non-Af Amer) TNP 08/11/17 05:34 BUN/Creatinine Ratio 27.5 08/11/17 05:34 Glucose 109 mg/dL (70-105) H 08/11/17 05:34 Calcium 9.1 mg/dL (8.6-10.3) 08/11/17 05:34 Total Bilirubin 0.4 mg/dL (0.3-1.0) 08/11/17 05:34 AST 27 U/L (13-39) 08/11/17 05:34 ALT 13 U/L (7-52) 08/11/17 05:34 Alkaline Phosphatase 45 U/L (34-104) 08/11/17 05:34 Total Protein 6.4 gm/dL (6.0-8.3) 08/11/17 05:34 Albumin 3.2 gm/dL (4.2-5.5) L 08/11/17 05:34 Globulin 3.2 gm/dL 08/11/17 05:34 Albumin/Globulin Ratio 1.0 (1.0-1.8) 08/11/17 05:34 TSH 2.86 uIU/ml (0.34-5.60) 08/11/17 05:34 Valproic Acid 26.7 ug/mL (50.0-100.0) L 08/10/17 15:11 - Physical Exam Vitals and I&O: Vital Signs Temp 98.2 F 08/11/17 06:30 Pulse 64 08/11/17 06:30 Resp 19 08/11/17 06:30 BP 125/58 08/11/17 06:30 Pulse Ox 96 08/11/17 06:30 Intake & Output 08/10/17 08/11/17 08/11/17 18:59 06:59 18:59 Intake Total 750 180 Balance 750 180 Intake: Oral 750 180 Other: # Voids 3 2 # Bowel Movements 1 0 Active Medications: Current Medications Divalproex Sodium (Depakote ) 250 mg PO BID [facility] PRN Reason: Protocol Stop: 10/05/17 08:59 Last Admin: 08/11/17 07:47 Dose: Not Given Donepezil HCl (Aricept) 5 mg PO HS [facility] Stop: 10/04/17 20:59 Last Admin: 08/10/17 20:28 Dose: 5 mg Enoxaparin Sodium (Lovenox) 50 mg SUBQ Q24H [facility] Stop: 10/04/17 18:29 Last Admin: 08/11/17 07:48 Dose: Not Given Lorazepam (Ativan) 0.5 mg PO Q6HR PRN; Protocol PRN Reason: Agitation Stop: 10/04/17 18:18 Last Admin: 08/09/17 17:30 Dose: 0.5 mg Memantine (Namenda) 5 mg PO DAILY [facility] Stop: 10/05/17 08:59 Last Admin: 08/11/17 07:47 Dose: Not Given Senna (Senna) 8.6 mg PO DAILY [facility] Stop: 10/05/17 08:59 Last Admin: 08/11/17 07:48 Dose: Not Given Simvastatin (Zocor) 20 mg PO HS [facility] PRN Reason: Protocol Stop: 10/04/17 20:59 Last Admin: 08/10/17 20:28 Dose: 20 mg Trazodone HCl (Desyrel) 100 mg PO HS [facility] PRN Reason: Protocol Stop: 10/04/17 20:59 Last Admin: 08/10/17 20:28 Dose: 100 mg General: Alert, Other (Confused) HEENT: Atraumatic Neck: Supple Cardiovascular: Regular rate Lungs: Clear to auscultation Abdomen: Bowel sounds, Soft Extremities: Other (No edema) Neurological: Other (Non ambulatory) Skin: Other (Warm and dry) Psych/Mental Status: Other (Confused, not oriented) Assessment/Plan - Assessment Assessment: Patient is awake, calm in no acute distress. - Plan Plan: Patient is under psychiatric care. Will continue to monitor. Nutritional Asmnt/Malnutr-PDOC - Dietary Evaluation Malnutrition Findings (Please click <Entered> for more info): Nutritional Asmnt/Malnutrition Start: 08/10/17 17: 28 Text: Status: Complete Freq: Document 08/10/17 17:30 GSUN (Rec: 08/10/17 17:57 [id number] [id number]) Nutritional Asmnt/Malnutrition Patient General Information Nutritional Screening Moderate Risk Screening Diagnosis Mood disorder, dementia Pertinent Medical Hx/Surgical Hx CAD, CHF, dementia, schizophrenia, weakness Subjective Information 87 year old male. Pt was unavilable during visit. Per RN notes, pt is confused and orientated x1 only. Avg PO intake 100% of meals since adm , meeting nutritional needs. However, noted pt refused breakfast and lunch yesterday, reason unknown. [employer] denied nutritional concerns at this time. Current Diet Order/ Nutrition Support Low sodium Pertinent Medications Senna Pertinent Labs No pertinent labs Nutritional Hx/Data Height 1.63 m Height (Calculated Centimeters) 162.6 Current Weight (lbs) 56.79 kg Weight (Calculated Kilograms) 56.8 Weight (Calculated Grams) 74398.8 [place] Body Weight 130 Weight Status Approriate GI Symptoms Skin Integrity/Comment: Dk 17. Skin intact. Current %PO Good (75-100%) Estimated Nutritional Goals Calories/Kcals/Kg CBW 125.2lb/56.9kg Kcals Calculated 1423-1707kcal (25-30kcal/kg) Protein Calculated 57g (1g/kg) Fluid: ml 1423-1707ml (1ml/kcal) Nutritional Problem 1. Problem Problem No nutritional problem at this time. Intervention/Recommendation Comments 1. Continue with current diet order. Avg PO intake is adequate. 2. Provide sueprvision as needed. Pt refused meals x2. Expected Outcomes/Goals Expected Outcomes/Goals 1. PO intake conitnue to meet at least 75% of estimated nutritional needs.
--- NOTE | 2017-08-12 02:58 | Progress Notes ---
DATE: 08/11/2017 Case discussed with staff and the patient, reviewed records. The patient continues to be unpredictable, impulsive, needing redirection. Continues to have poor insight. Continues with redirection. He is compliant with the medication with no side effects, no sedation, no nausea, no extrapyramidal symptoms. I will be increasing Namenda dose to 5 mg twice a day. We will continue to work with the patient in group therapy, milieu therapy, adjust medications as needed. JOB# [id number]
--- NOTE | 2017-08-12 08:33 | General Progress Note ---
Subjective - Review of Systems Service Date: 08/12/17 Subjective: I am OK Objective - Results Result Diagrams: 08/11/17 05:34 08/11/17 05:34 Recent Labs: Laboratory Last Values WBC 3.9 Th/cmm (4.8-10.8) L 08/11/17 05:34 RBC 3.41 Mil/cmm (3.80-5.80) L 08/11/17 05:34 Hgb 11.4 gm/dL (12.6-17.4) L 08/11/17 05:34 Hct 33.6 % (39.0-49.0) L D 08/11/17 05:34 MCV 98.4 fl (80-99) 08/11/17 05:34 MCH 33.5 pg (27.0-31.0) H 08/11/17 05:34 MCHC Differential 34.0 pg (28.0-36.0) 08/11/17 05:34 RDW 14.0 % (11.5-20.0) 08/11/17 05:34 Plt Count 182 Th/cmm (150-400) D 08/11/17 05:34 MPV 7.6 fl 08/11/17 05:34 Neutrophils % 44.9 % (40.0-80.0) 08/11/17 05:34 Lymphocytes % 41.2 % (20.0-50.0) 08/11/17 05:34 Monocytes % 12.4 % (2.0-10.0) H 08/11/17 05:34 Eosinophils % 0.8 % (0.0-5.0) 08/11/17 05:34 Basophils % 0.7 % (0.0-2.0) 08/11/17 05:34 Sodium 133 mEq/L (136-145) L 08/11/17 05:34 Potassium 4.3 mEq/L (3.5-5.1) 08/11/17 05:34 Chloride 101 mEq/L (98-107) 08/11/17 05:34 Carbon Dioxide 29.7 mEq/L (21.0-31.0) 08/11/17 05:34 Anion Gap 6.6 (7.0-16.0) L 08/11/17 05:34 BUN 22 mg/dL (7-25) 08/11/17 05:34 Creatinine 0.8 mg/dL (0.7-1.3) 08/11/17 05:34 Est GFR ( Amer) TNP 08/11/17 05:34 Est GFR (Non-Af Amer) TNP 08/11/17 05:34 BUN/Creatinine Ratio 27.5 08/11/17 05:34 Glucose 109 mg/dL (70-105) H 08/11/17 05:34 Calcium 9.1 mg/dL (8.6-10.3) 08/11/17 05:34 Total Bilirubin 0.4 mg/dL (0.3-1.0) 08/11/17 05:34 AST 27 U/L (13-39) 08/11/17 05:34 ALT 13 U/L (7-52) 08/11/17 05:34 Alkaline Phosphatase 45 U/L (34-104) 08/11/17 05:34 Total Protein 6.4 gm/dL (6.0-8.3) 08/11/17 05:34 Albumin 3.2 gm/dL (4.2-5.5) L 08/11/17 05:34 Globulin 3.2 gm/dL 08/11/17 05:34 Albumin/Globulin Ratio 1.0 (1.0-1.8) 08/11/17 05:34 TSH 2.86 uIU/ml (0.34-5.60) 08/11/17 05:34 Valproic Acid 26.7 ug/mL (50.0-100.0) L 08/10/17 15:11 - Physical Exam Vitals and I&O: Vital Signs Temp 98.2 F 08/12/17 06:52 Pulse 60 08/12/17 06:52 Resp 20 08/12/17 06:52 BP 149/58 08/12/17 06:52 Pulse Ox 99 08/12/17 06:52 Intake & Output 08/11/17 08/12/17 08/12/17 18:59 06:59 18:59 Intake Total 950 120 Balance 950 120 Intake: Oral 950 120 Other: # Voids 4 3 # Bowel Movements 0 0 Active Medications: Current Medications Divalproex Sodium (Melitonte ) 250 mg PO TID [facility] PRN Reason: Protocol Stop: 10/10/17 13:59 Last Admin: 08/11/17 20:59 Dose: Not Given Donepezil HCl (Aricept) 5 mg PO HS [facility] Stop: 10/04/17 20:59 Last Admin: 08/11/17 20:59 Dose: Not Given Enoxaparin Sodium (Lovenox) 50 mg SUBQ Q24H [facility] Stop: 10/04/17 18:29 Last Admin: 08/11/17 17:54 Dose: 50 mg Lorazepam (Ativan) 0.5 mg PO Q6HR PRN; Protocol PRN Reason: Agitation Stop: 10/04/17 18:18 Last Admin: 08/09/17 17:30 Dose: 0.5 mg Memantine (Namenda) 5 mg PO BID [facility] Stop: 10/10/17 16:59 Last Admin: 08/11/17 17:54 Dose: 5 mg Senna (Senna) 8.6 mg PO DAILY [facility] Stop: 10/05/17 08:59 Last Admin: 08/11/17 15:01 Dose: Not Given Simvastatin (Zocor) 20 mg PO HS [facility] PRN Reason: Protocol Stop: 10/04/17 20:59 Last Admin: 08/11/17 20:59 Dose: Not Given Trazodone HCl (Desyrel) 100 mg PO HS [facility] PRN Reason: Protocol Stop: 10/04/17 20:59 Last Admin: 08/11/17 20:59 Dose: Not Given General: Alert, Other (Confused) HEENT: Atraumatic Neck: Supple Cardiovascular: Regular rate Lungs: Clear to auscultation Abdomen: Bowel sounds, Soft Extremities: Other (No edema) Neurological: Other (Non ambulatory) Skin: Other (Warm and dry) Psych/Mental Status: Other (Confused, not oriented) Assessment/Plan - Assessment Assessment: Patient is awake, calm in no acute distress. - Plan Plan: Patient is under psychiatric care. Will continue to monitor. Nutritional Asmnt/Malnutr-PDOC - Dietary Evaluation Malnutrition Findings (Please click <Entered> for more info): Nutritional Asmnt/Malnutrition Start: 08/10/17 17: 28 Text: Status: Complete Freq: Document 08/10/17 17:30 GSUN (Rec: 08/10/17 17:57 [email or web address]) Nutritional Asmnt/Malnutrition Patient General Information Nutritional Screening Moderate Risk Screening Diagnosis Mood disorder, dementia Pertinent Medical Hx/Surgical Hx CAD, CHF, dementia, schizophrenia, weakness Subjective Information 87 year old male. Pt was unavilable during visit. Per RN notes, pt is confused and orientated x1 only. Avg PO intake 100% of meals since adm , meeting nutritional needs. However, noted pt refused breakfast and lunch yesterday, reason unknown. 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 Current Diet Order/ Nutrition Support Low sodium Pertinent Medications Senna Pertinent Labs No pertinent labs Nutritional Hx/Data Height 1.63 m Height (Calculated Centimeters) 162.6 Current Weight (lbs) 56.79 kg Weight (Calculated Kilograms) 56.8 Weight (Calculated Grams) 81735.8 [place] Body Weight 130 Weight Status Approriate GI Symptoms Skin Integrity/Comment: Dk 17. Skin intact. Current %PO Good (75-100%) Estimated Nutritional Goals Calories/Kcals/Kg CBW 125.2lb/56.9kg Kcals Calculated 1423-1707kcal (25-30kcal/kg) Protein Calculated 57g (1g/kg) Fluid: ml 1423-1707ml (1ml/kcal) Nutritional Problem 1. Problem Problem No nutritional problem at this time. Intervention/Recommendation Comments 1. Continue with current diet order. Avg PO intake is adequate. 2. Provide sueprvision as needed. Pt refused meals x2. Expected Outcomes/Goals Expected Outcomes/Goals 1. PO intake conitnue to meet at least 75% of estimated nutritional needs.
[2017-08-12] MEDS: Enoxaparin 60 mg/0.6 mL 0.6mL Syr SUBQ SCH (18:05)
--- NOTE | 2017-08-12 23:52 | Progress Notes ---
DATE: 08/12/2017 Case was discussed with staff of the patient, reviewed records. The patient continues to be confused and demented, internally preoccupied. Continues to be impulsive. Continues to have poor insight. Unable to make safe plan for self-care. I did increase his Depakote dose yesterday to 250 mg three times a day. His lab work showed low sodium level, high blood sugar, and low albumin. The rest within normal range. TSH within normal range. His CBC showed low white cell count and low red cells and hemoglobin and low hematocrit. His MCH is high, monocyte is high. The rest within normal range. Depakote level was low checked on 08/10/2017. Yesterday, the dose was increased to 250 three times a day and so far no side effects with the medication, no sedation, no nausea. I did increase Namenda dose yesterday also to 5 mg twice a day and I will continue to work with the patient in group therapy, milieu therapy, and adjust the medication as needed. JOB# [id number]
--- NOTE | 2017-08-13 08:45 | General Progress Note ---
Subjective - Review of Systems Service Date: 08/13/17 Subjective: I am OK Objective - Results Result Diagrams: 08/11/17 05:34 08/11/17 05:34 Recent Labs: Laboratory Last Values WBC 3.9 Th/cmm (4.8-10.8) L 08/11/17 05:34 RBC 3.41 Mil/cmm (3.80-5.80) L 08/11/17 05:34 Hgb 11.4 gm/dL (12.6-17.4) L 08/11/17 05:34 Hct 33.6 % (39.0-49.0) L D 08/11/17 05:34 MCV 98.4 fl (80-99) 08/11/17 05:34 MCH 33.5 pg (27.0-31.0) H 08/11/17 05:34 MCHC Differential 34.0 pg (28.0-36.0) 08/11/17 05:34 RDW 14.0 % (11.5-20.0) 08/11/17 05:34 Plt Count 182 Th/cmm (150-400) D 08/11/17 05:34 MPV 7.6 fl 08/11/17 05:34 Neutrophils % 44.9 % (40.0-80.0) 08/11/17 05:34 Lymphocytes % 41.2 % (20.0-50.0) 08/11/17 05:34 Monocytes % 12.4 % (2.0-10.0) H 08/11/17 05:34 Eosinophils % 0.8 % (0.0-5.0) 08/11/17 05:34 Basophils % 0.7 % (0.0-2.0) 08/11/17 05:34 Sodium 133 mEq/L (136-145) L 08/11/17 05:34 Potassium 4.3 mEq/L (3.5-5.1) 08/11/17 05:34 Chloride 101 mEq/L (98-107) 08/11/17 05:34 Carbon Dioxide 29.7 mEq/L (21.0-31.0) 08/11/17 05:34 Anion Gap 6.6 (7.0-16.0) L 08/11/17 05:34 BUN 22 mg/dL (7-25) 08/11/17 05:34 Creatinine 0.8 mg/dL (0.7-1.3) 08/11/17 05:34 Est GFR ( Amer) TNP 08/11/17 05:34 Est GFR (Non-Af Amer) TNP 08/11/17 05:34 BUN/Creatinine Ratio 27.5 08/11/17 05:34 Glucose 109 mg/dL (70-105) H 08/11/17 05:34 Calcium 9.1 mg/dL (8.6-10.3) 08/11/17 05:34 Total Bilirubin 0.4 mg/dL (0.3-1.0) 08/11/17 05:34 AST 27 U/L (13-39) 08/11/17 05:34 ALT 13 U/L (7-52) 08/11/17 05:34 Alkaline Phosphatase 45 U/L (34-104) 08/11/17 05:34 Total Protein 6.4 gm/dL (6.0-8.3) 08/11/17 05:34 Albumin 3.2 gm/dL (4.2-5.5) L 08/11/17 05:34 Globulin 3.2 gm/dL 08/11/17 05:34 Albumin/Globulin Ratio 1.0 (1.0-1.8) 08/11/17 05:34 TSH 2.86 uIU/ml (0.34-5.60) 08/11/17 05:34 Valproic Acid 26.7 ug/mL (50.0-100.0) L 08/10/17 15:11 - Physical Exam Vitals and I&O: Vital Signs Temp 97.4 F 08/12/17 20:00 Pulse 70 08/12/17 20:00 Resp 19 08/12/17 20:00 BP 147/68 08/12/17 20:00 Pulse Ox 97 08/12/17 20:00 Intake & Output 08/12/17 08/13/17 08/13/17 18:59 06:59 18:59 Intake Total 1000 120 Balance 1000 120 Intake: Oral 1000 120 Other: # Voids 4 3 # Bowel Movements 1 Active Medications: Current Medications Divalproex Sodium (Elina Hernandez) 250 mg PO TID [facility] PRN Reason: Protocol Stop: 10/10/17 13:59 Last Admin: 08/12/17 20:29 Dose: 250 mg Donepezil HCl (Aricept) 5 mg PO HS [facility] Stop: 10/04/17 20:59 Last Admin: 08/12/17 20:29 Dose: 5 mg Enoxaparin Sodium (Lovenox) 50 mg SUBQ Q24H [facility] Stop: 10/04/17 18:29 Last Admin: 08/12/17 18:05 Dose: 50 mg Memantine (Namenda) 5 mg PO BID [facility] Stop: 10/10/17 16:59 Last Admin: 08/12/17 18:05 Dose: 5 mg Senna (Senna) 8.6 mg PO DAILY [facility] Stop: 10/05/17 08:59 Last Admin: 08/12/17 08:51 Dose: Not Given Simvastatin (Zocor) 20 mg PO HS [facility] PRN Reason: Protocol Stop: 10/04/17 20:59 Last Admin: 08/12/17 20:30 Dose: 20 mg Trazodone HCl (Desyrel) 100 mg PO HS [facility] PRN Reason: Protocol Stop: 10/04/17 20:59 Last Admin: 08/12/17 20:29 Dose: 100 mg General: Alert, Other (Confused) HEENT: Atraumatic Neck: Supple Cardiovascular: Regular rate Lungs: Clear to auscultation Abdomen: Bowel sounds, Soft Extremities: Other (No edema) Neurological: Other (Non ambulatory) Skin: Other (Warm and dry) Psych/Mental Status: Other (Confused, not oriented) Assessment/Plan - Assessment Assessment: Patient is awake, calm in no acute distress. - Plan Plan: Patient is under psychiatric care. Will continue to monitor. Nutritional Asmnt/Malnutr-PDOC - Dietary Evaluation Malnutrition Findings (Please click <Entered> for more info): Nutritional Asmnt/Malnutrition Start: 08/10/17 17: 28 Text: Status: Complete Freq: Document 08/10/17 17:30 GSUN (Rec: 08/10/17 17:57 [email or web address] [email or web address]) Nutritional Asmnt/Malnutrition Patient General Information Nutritional Screening Moderate Risk Screening Diagnosis Mood disorder, dementia Pertinent Medical Hx/Surgical Hx CAD, CHF, dementia, schizophrenia, weakness Subjective Information 87 year old male. Pt was unavilable during visit. Per RN notes, pt is confused and orientated x1 only. Avg PO intake 100% of meals since adm , meeting nutritional needs. However, noted pt refused breakfast and lunch yesterday, reason unknown. ANIMAL PARK CODE ENFORCEMENT OFFICER denied nutritional concerns at this time. Current Diet Order/ Nutrition Support Low sodium Pertinent Medications Senna Pertinent Labs No pertinent labs Nutritional Hx/Data Height 1.63 m Height (Calculated Centimeters) 162.6 Current Weight (lbs) 56.79 kg Weight (Calculated Kilograms) 56.8 Weight (Calculated Grams) 39613.8 [place] Body Weight 130 Weight Status Approriate GI Symptoms Skin Integrity/Comment: Dk 17. Skin intact. Current %PO Good (75-100%) Estimated Nutritional Goals Calories/Kcals/Kg CBW 125.2lb/56.9kg Kcals Calculated 1423-1707kcal (25-30kcal/kg) Protein Calculated 57g (1g/kg) Fluid: ml 1423-1707ml (1ml/kcal) Nutritional Problem 1. Problem Problem No nutritional problem at this time. Intervention/Recommendation Comments 1. Continue with current diet order. Avg PO intake is adequate. 2. Provide sueprvision as needed. Pt refused meals x2. Expected Outcomes/Goals Expected Outcomes/Goals 1. PO intake conitnue to meet at least 75% of estimated nutritional needs.
[2017-08-13] MEDS: Enoxaparin 60 mg/0.6 mL 0.6mL Syr SUBQ SCH (17:34)
--- NOTE | 2017-08-13 23:09 | Progress Notes ---
DATE: 08/13/2017 Case was discussed with staff of the patient, reviewed records. The patient continues to be confused. Continues to be unpredictable, impulsive, continues to have poor insight. Unable to make safe plan for self-care. He is on Depakote and Aricept. Namenda was started and I did increase the dose two days ago. No side effects. No sedation. No nausea. We will continue to work with the patient in group therapy, milieu therapy, and adjust medication as needed. JOB# [id number]
--- NOTE | 2017-08-14 09:25 | General Progress Note ---
Subjective - Review of Systems Service Date: 08/14/17 Subjective: I am OK Objective - Results Result Diagrams: 08/11/17 05:34 08/11/17 05:34 Recent Labs: Laboratory Last Values WBC 3.9 Th/cmm (4.8-10.8) L 08/11/17 05:34 RBC 3.41 Mil/cmm (3.80-5.80) L 08/11/17 05:34 Hgb 11.4 gm/dL (12.6-17.4) L 08/11/17 05:34 Hct 33.6 % (39.0-49.0) L D 08/11/17 05:34 MCV 98.4 fl (80-99) 08/11/17 05:34 MCH 33.5 pg (27.0-31.0) H 08/11/17 05:34 MCHC Differential 34.0 pg (28.0-36.0) 08/11/17 05:34 RDW 14.0 % (11.5-20.0) 08/11/17 05:34 Plt Count 182 Th/cmm (150-400) D 08/11/17 05:34 MPV 7.6 fl 08/11/17 05:34 Neutrophils % 44.9 % (40.0-80.0) 08/11/17 05:34 Lymphocytes % 41.2 % (20.0-50.0) 08/11/17 05:34 Monocytes % 12.4 % (2.0-10.0) H 08/11/17 05:34 Eosinophils % 0.8 % (0.0-5.0) 08/11/17 05:34 Basophils % 0.7 % (0.0-2.0) 08/11/17 05:34 Sodium 133 mEq/L (136-145) L 08/11/17 05:34 Potassium 4.3 mEq/L (3.5-5.1) 08/11/17 05:34 Chloride 101 mEq/L (98-107) 08/11/17 05:34 Carbon Dioxide 29.7 mEq/L (21.0-31.0) 08/11/17 05:34 Anion Gap 6.6 (7.0-16.0) L 08/11/17 05:34 BUN 22 mg/dL (7-25) 08/11/17 05:34 Creatinine 0.8 mg/dL (0.7-1.3) 08/11/17 05:34 Est GFR ( Amer) TNP 08/11/17 05:34 Est GFR (Non-Af Amer) TNP 08/11/17 05:34 BUN/Creatinine Ratio 27.5 08/11/17 05:34 Glucose 109 mg/dL (70-105) H 08/11/17 05:34 Calcium 9.1 mg/dL (8.6-10.3) 08/11/17 05:34 Total Bilirubin 0.4 mg/dL (0.3-1.0) 08/11/17 05:34 AST 27 U/L (13-39) 08/11/17 05:34 ALT 13 U/L (7-52) 08/11/17 05:34 Alkaline Phosphatase 45 U/L (34-104) 08/11/17 05:34 Total Protein 6.4 gm/dL (6.0-8.3) 08/11/17 05:34 Albumin 3.2 gm/dL (4.2-5.5) L 08/11/17 05:34 Globulin 3.2 gm/dL 08/11/17 05:34 Albumin/Globulin Ratio 1.0 (1.0-1.8) 08/11/17 05:34 TSH 2.86 uIU/ml (0.34-5.60) 08/11/17 05:34 Valproic Acid 26.7 ug/mL (50.0-100.0) L 08/10/17 15:11 - Physical Exam Vitals and I&O: Vital Signs Temp 97.6 F 08/13/17 22:33 Pulse 72 08/13/17 22:33 Resp 18 08/13/17 22:33 BP 171/72 08/13/17 22:33 Pulse Ox 98 08/13/17 22:33 Intake & Output 08/13/17 08/14/17 08/14/17 18:59 06:59 18:59 Intake Total 800 120 Balance 800 120 Intake: Oral 800 120 Other: # Voids 2 3 Active Medications: Current Medications Divalproex Sodium (Elina Hernandez) 250 mg PO TID [facility] PRN Reason: Protocol Stop: 10/10/17 13:59 Last Admin: 08/13/17 21:02 Dose: 250 mg Donepezil HCl (Aricept) 5 mg PO HS [facility] Stop: 10/04/17 20:59 Last Admin: 08/13/17 21:02 Dose: 5 mg Enoxaparin Sodium (Lovenox) 50 mg SUBQ Q24H [facility] Stop: 10/04/17 18:29 Last Admin: 08/13/17 17:34 Dose: Not Given Memantine (Namenda) 5 mg PO BID [facility] Stop: 10/10/17 16:59 Last Admin: 08/13/17 16:50 Dose: Not Given Senna (Senna) 8.6 mg PO DAILY [facility] Stop: 10/05/17 08:59 Last Admin: 08/13/17 08:38 Dose: Not Given Simvastatin (Zocor) 20 mg PO HS [facility] PRN Reason: Protocol Stop: 10/04/17 20:59 Last Admin: 08/13/17 21:03 Dose: 20 mg Trazodone HCl (Desyrel) 100 mg PO HS [facility] PRN Reason: Protocol Stop: 10/04/17 20:59 Last Admin: 08/13/17 21:03 Dose: 100 mg General: Alert, Other (Confused) HEENT: Atraumatic Neck: Supple Cardiovascular: Regular rate Lungs: Clear to auscultation Abdomen: Bowel sounds, Soft Extremities: Other (No edema) Neurological: Other (Non ambulatory) Skin: Other (Warm and dry) Psych/Mental Status: Other (Confused, not oriented) Assessment/Plan - Assessment Assessment: Patient is awake, calm in no acute distress. - Plan Plan: Patient is under psychiatric care. Will continue to monitor. Nutritional Asmnt/Malnutr-PDOC - Dietary Evaluation Malnutrition Findings (Please click <Entered> for more info): Nutritional Asmnt/Malnutrition Start: 08/10/17 17: 28 Text: Status: Complete Freq: Document 08/10/17 17:30 GSUN (Rec: 08/10/17 17:57 [email or web address] [id number]) Nutritional Asmnt/Malnutrition Patient General Information Nutritional Screening Moderate Risk Screening Diagnosis Mood disorder, dementia Pertinent Medical Hx/Surgical Hx CAD, CHF, dementia, schizophrenia, weakness Subjective Information 87 year old male. Pt was unavilable during visit. Per RN notes, pt is confused and orientated x1 only. Avg PO intake 100% of meals since adm , meeting nutritional needs. However, noted pt refused breakfast and lunch yesterday, reason unknown. LITERARY WRITER denied nutritional concerns at this time. Current Diet Order/ Nutrition Support Low sodium Pertinent Medications Senna Pertinent Labs No pertinent labs Nutritional Hx/Data Height 1.63 m Height (Calculated Centimeters) 162.6 Current Weight (lbs) 56.79 kg Weight (Calculated Kilograms) 56.8 Weight (Calculated Grams) 55700.8 [place] Body Weight 130 Weight Status Approriate GI Symptoms Skin Integrity/Comment: Dk 17. Skin intact. Current %PO Good (75-100%) Estimated Nutritional Goals Calories/Kcals/Kg CBW 125.2lb/56.9kg Kcals Calculated 1423-1707kcal (25-30kcal/kg) Protein Calculated 57g (1g/kg) Fluid: ml 1423-1707ml (1ml/kcal) Nutritional Problem 1. Problem Problem No nutritional problem at this time. Intervention/Recommendation Comments 1. Continue with current diet order. Avg PO intake is adequate. 2. Provide sueprvision as needed. Pt refused meals x2. Expected Outcomes/Goals Expected Outcomes/Goals 1. PO intake conitnue to meet at least 75% of estimated nutritional needs.
[2017-08-14] MEDS: Enoxaparin 60 mg/0.6 mL 0.6mL Syr SUBQ SCH (18:12)
--- NOTE | 2017-08-14 22:55 | Progress Notes ---
DATE: 08/14/2017 Case was discussed with staff of the patient, reviewed records. The patient continues to be demented, confused, isolating himself. Continues to be unable to make safe plan for self-care. Unpredictable, impulsive, needing redirection. Continues to stay in his room, stays to himself. He is compliant with the medications. No side effects, no sedation, no nausea, no extrapyramidal symptoms. He uses a wheelchair, needs transformers, and we are working on discharge plan. We will continue the patient in group therapy, milieu therapy, adjust medication as needed. JOB# [id number]
--- NOTE | 2017-08-15 10:48 | General Progress Note ---
Subjective - Review of Systems Service Date: 08/15/17 Subjective: I am OK Objective - Results Result Diagrams: 08/11/17 05:34 08/11/17 05:34 Recent Labs: Laboratory Last Values WBC 3.9 Th/cmm (4.8-10.8) L 08/11/17 05:34 RBC 3.41 Mil/cmm (3.80-5.80) L 08/11/17 05:34 Hgb 11.4 gm/dL (12.6-17.4) L 08/11/17 05:34 Hct 33.6 % (39.0-49.0) L D 08/11/17 05:34 MCV 98.4 fl (80-99) 08/11/17 05:34 MCH 33.5 pg (27.0-31.0) H 08/11/17 05:34 MCHC Differential 34.0 pg (28.0-36.0) 08/11/17 05:34 RDW 14.0 % (11.5-20.0) 08/11/17 05:34 Plt Count 182 Th/cmm (150-400) D 08/11/17 05:34 MPV 7.6 fl 08/11/17 05:34 Neutrophils % 44.9 % (40.0-80.0) 08/11/17 05:34 Lymphocytes % 41.2 % (20.0-50.0) 08/11/17 05:34 Monocytes % 12.4 % (2.0-10.0) H 08/11/17 05:34 Eosinophils % 0.8 % (0.0-5.0) 08/11/17 05:34 Basophils % 0.7 % (0.0-2.0) 08/11/17 05:34 Sodium 133 mEq/L (136-145) L 08/11/17 05:34 Potassium 4.3 mEq/L (3.5-5.1) 08/11/17 05:34 Chloride 101 mEq/L (98-107) 08/11/17 05:34 Carbon Dioxide 29.7 mEq/L (21.0-31.0) 08/11/17 05:34 Anion Gap 6.6 (7.0-16.0) L 08/11/17 05:34 BUN 22 mg/dL (7-25) 08/11/17 05:34 Creatinine 0.8 mg/dL (0.7-1.3) 08/11/17 05:34 Est GFR ( Amer) TNP 08/11/17 05:34 Est GFR (Non-Af Amer) TNP 08/11/17 05:34 BUN/Creatinine Ratio 27.5 08/11/17 05:34 Glucose 109 mg/dL (70-105) H 08/11/17 05:34 Calcium 9.1 mg/dL (8.6-10.3) 08/11/17 05:34 Total Bilirubin 0.4 mg/dL (0.3-1.0) 08/11/17 05:34 AST 27 U/L (13-39) 08/11/17 05:34 ALT 13 U/L (7-52) 08/11/17 05:34 Alkaline Phosphatase 45 U/L (34-104) 08/11/17 05:34 Total Protein 6.4 gm/dL (6.0-8.3) 08/11/17 05:34 Albumin 3.2 gm/dL (4.2-5.5) L 08/11/17 05:34 Globulin 3.2 gm/dL 08/11/17 05:34 Albumin/Globulin Ratio 1.0 (1.0-1.8) 08/11/17 05:34 TSH 2.86 uIU/ml (0.34-5.60) 08/11/17 05:34 Valproic Acid 26.7 ug/mL (50.0-100.0) L 08/10/17 15:11 - Physical Exam Vitals and I&O: Vital Signs Temp 97.6 F 08/13/17 22:33 Pulse 53 08/15/17 08:30 Resp 18 08/13/17 22:33 BP 167/62 08/15/17 08:30 Pulse Ox 98 08/13/17 22:33 Intake & Output 08/14/17 08/15/17 08/15/17 18:59 06:59 18:59 Intake Total 500 120 Balance 500 120 Intake: Oral 500 120 Other: # Voids 2 3 Active Medications: Current Medications Divalproex Sodium (Elina Hernandez) 250 mg PO TID [facility] PRN Reason: Protocol Stop: 10/10/17 13:59 Last Admin: 08/15/17 09:47 Dose: 250 mg Donepezil HCl (Aricept) 5 mg PO HS [facility] Stop: 10/04/17 20:59 Last Admin: 08/14/17 21:00 Dose: Not Given Enoxaparin Sodium (Lovenox) 50 mg SUBQ Q24H [facility] Stop: 10/04/17 18:29 Last Admin: 08/14/17 18:12 Dose: Not Given Memantine (Namenda) 5 mg PO BID [facility] Stop: 10/10/17 16:59 Last Admin: 08/15/17 09:47 Dose: 5 mg Senna (Senna) 8.6 mg PO DAILY [facility] Stop: 10/05/17 08:59 Last Admin: 08/15/17 09:47 Dose: 8.6 mg Simvastatin (Zocor) 20 mg PO HS [facility] PRN Reason: Protocol Stop: 10/04/17 20:59 Last Admin: 08/14/17 21:00 Dose: Not Given Trazodone HCl (Desyrel) 100 mg PO HS [facility] PRN Reason: Protocol Stop: 10/04/17 20:59 Last Admin: 08/14/17 21:00 Dose: Not Given General: Alert, Other (Confused) HEENT: Atraumatic Neck: Supple Cardiovascular: Regular rate Lungs: Clear to auscultation Abdomen: Bowel sounds, Soft Extremities: Other (No edema) Neurological: Other (Non ambulatory) Skin: Other (Warm and dry) Psych/Mental Status: Other (Confused, not oriented) Assessment/Plan - Assessment Assessment: Patient is awake, calm in no acute distress. - Plan Plan: Patient is under psychiatric care. Will continue to monitor. Nutritional Asmnt/Malnutr-PDOC - Dietary Evaluation Malnutrition Findings (Please click <Entered> for more info): Nutritional Asmnt/Malnutrition Start: 08/10/17 17: 28 Text: Status: Complete Freq: Document 08/10/17 17:30 GSUN (Rec: 08/10/17 17:57 [id number]) Nutritional Asmnt/Malnutrition Patient General Information Nutritional Screening Moderate Risk Screening Diagnosis Mood disorder, dementia Pertinent Medical Hx/Surgical Hx CAD, CHF, dementia, schizophrenia, weakness Subjective Information 87 year old male. Pt was unavilable during visit. Per RN notes, pt is confused and orientated x1 only. Avg PO intake 100% of meals since adm , meeting nutritional needs. However, noted pt refused breakfast and lunch yesterday, reason unknown. UNDERWRITING CLERK denied nutritional concerns at this time. Current Diet Order/ Nutrition Support Low sodium Pertinent Medications Senna Pertinent Labs No pertinent labs Nutritional Hx/Data Height 1.63 m Height (Calculated Centimeters) 162.6 Current Weight (lbs) 56.79 kg Weight (Calculated Kilograms) 56.8 Weight (Calculated Grams) [address] Body Weight 130 Weight Status Approriate GI Symptoms Skin Integrity/Comment: Dk 17. Skin intact. Current %PO Good (75-100%) Estimated Nutritional Goals Calories/Kcals/Kg CBW 125.2lb/56.9kg Kcals Calculated 1423-1707kcal (25-30kcal/kg) Protein Calculated 57g (1g/kg) Fluid: ml 1423-1707ml (1ml/kcal) Nutritional Problem 1. Problem Problem No nutritional problem at this time. Intervention/Recommendation Comments 1. Continue with current diet order. Avg PO intake is adequate. 2. Provide sueprvision as needed. Pt refused meals x2. Expected Outcomes/Goals Expected Outcomes/Goals 1. PO intake conitnue to meet at least 75% of estimated nutritional needs.
[2017-08-15] MEDS: Enoxaparin 60 mg/0.6 mL 0.6mL Syr SUBQ SCH (17:46)
--- NOTE | 2017-08-15 22:18 | Progress Notes ---
DATE: 08/15/2017 SUBJECTIVE: Chart reviewed and the patient interviewed. Also discussed the patient's condition with the staff and reviewed records and labs. The patient . Also, he is still confused and is still forgetful and needs lots of redirections. He also is still resisting care. Also, during my interview, the patient was paranoid and he kept covering his face with a bedsheet and he was mumbling and talking to himself. The patient also is still talking to himself and personal hygiene is still poor, and he has difficulty following the directions. ASSESSMENT: The patient is still psychotic and unpredictable. TREATMENT PLAN: We will continue monitoring his behavior and his condition closely. Also, we will continue Depakote 250 mg 3 times a day and Aricept 5 mg at bedtime and Namenda 5 mg twice a day as well as trazodone 100 mg at bedtime and we will continue to work on his poor impulse control and ineffective coping. JOB# [id number]
--- NOTE | 2017-08-16 10:11 | General Progress Note ---
Subjective - Review of Systems Service Date: 08/16/17 Subjective: I am OK Objective - Results Result Diagrams: 08/11/17 05:34 08/11/17 05:34 Recent Labs: Laboratory Last Values WBC 3.9 Th/cmm (4.8-10.8) L 08/11/17 05:34 RBC 3.41 Mil/cmm (3.80-5.80) L 08/11/17 05:34 Hgb 11.4 gm/dL (12.6-17.4) L 08/11/17 05:34 Hct 33.6 % (39.0-49.0) L D 08/11/17 05:34 MCV 98.4 fl (80-99) 08/11/17 05:34 MCH 33.5 pg (27.0-31.0) H 08/11/17 05:34 MCHC Differential 34.0 pg (28.0-36.0) 08/11/17 05:34 RDW 14.0 % (11.5-20.0) 08/11/17 05:34 Plt Count 182 Th/cmm (150-400) D 08/11/17 05:34 MPV 7.6 fl 08/11/17 05:34 Neutrophils % 44.9 % (40.0-80.0) 08/11/17 05:34 Lymphocytes % 41.2 % (20.0-50.0) 08/11/17 05:34 Monocytes % 12.4 % (2.0-10.0) H 08/11/17 05:34 Eosinophils % 0.8 % (0.0-5.0) 08/11/17 05:34 Basophils % 0.7 % (0.0-2.0) 08/11/17 05:34 Sodium 133 mEq/L (136-145) L 08/11/17 05:34 Potassium 4.3 mEq/L (3.5-5.1) 08/11/17 05:34 Chloride 101 mEq/L (98-107) 08/11/17 05:34 Carbon Dioxide 29.7 mEq/L (21.0-31.0) 08/11/17 05:34 Anion Gap 6.6 (7.0-16.0) L 08/11/17 05:34 BUN 22 mg/dL (7-25) 08/11/17 05:34 Creatinine 0.8 mg/dL (0.7-1.3) 08/11/17 05:34 Est GFR ( Amer) TNP 08/11/17 05:34 Est GFR (Non-Af Amer) TNP 08/11/17 05:34 BUN/Creatinine Ratio 27.5 08/11/17 05:34 Glucose 109 mg/dL (70-105) H 08/11/17 05:34 Calcium 9.1 mg/dL (8.6-10.3) 08/11/17 05:34 Total Bilirubin 0.4 mg/dL (0.3-1.0) 08/11/17 05:34 AST 27 U/L (13-39) 08/11/17 05:34 ALT 13 U/L (7-52) 08/11/17 05:34 Alkaline Phosphatase 45 U/L (34-104) 08/11/17 05:34 Total Protein 6.4 gm/dL (6.0-8.3) 08/11/17 05:34 Albumin 3.2 gm/dL (4.2-5.5) L 08/11/17 05:34 Globulin 3.2 gm/dL 08/11/17 05:34 Albumin/Globulin Ratio 1.0 (1.0-1.8) 08/11/17 05:34 TSH 2.86 uIU/ml (0.34-5.60) 08/11/17 05:34 Valproic Acid 26.7 ug/mL (50.0-100.0) L 08/10/17 15:11 - Physical Exam Vitals and I&O: Vital Signs Temp 97.8 F 08/16/17 06:58 Pulse 96 08/16/17 06:58 Resp 20 08/16/17 06:58 BP 146/70 08/16/17 06:58 Pulse Ox 97 08/16/17 06:58 Intake & Output 08/15/17 08/16/17 08/16/17 18:59 06:59 18:59 Intake Total 950 480 Balance 950 480 Intake: Oral 950 480 Other: # Voids 4 2 # Bowel Movements 1 Active Medications: Current Medications Divalproex Sodium (Elina Hernandez) 250 mg PO TID [facility] PRN Reason: Protocol Stop: 10/10/17 13:59 Last Admin: 08/16/17 09:34 Dose: 250 mg Donepezil HCl (Aricept) 5 mg PO HS [facility] Stop: 10/04/17 20:59 Last Admin: 08/15/17 20:48 Dose: 5 mg Enoxaparin Sodium (Lovenox) 50 mg SUBQ Q24H [facility] Stop: 10/04/17 18:29 Last Admin: 08/15/17 17:46 Dose: Not Given Memantine (Namenda) 5 mg PO BID [facility] Stop: 10/10/17 16:59 Last Admin: 08/16/17 09:35 Dose: 5 mg Senna (Senna) 8.6 mg PO DAILY [facility] Stop: 10/05/17 08:59 Last Admin: 08/16/17 09:35 Dose: 8.6 mg Simvastatin (Zocor) 20 mg PO HS [facility] PRN Reason: Protocol Stop: 10/04/17 20:59 Last Admin: 08/15/17 20:48 Dose: 20 mg Trazodone HCl (Desyrel) 100 mg PO HS [facility] PRN Reason: Protocol Stop: 10/04/17 20:59 Last Admin: 08/15/17 20:48 Dose: 100 mg General: Alert, Other (Confused) HEENT: Atraumatic Neck: Supple Cardiovascular: Regular rate Lungs: Clear to auscultation Abdomen: Bowel sounds, Soft Extremities: Other (No edema) Neurological: Other (Non ambulatory) Skin: Other (Warm and dry) Psych/Mental Status: Other (Confused, not oriented) Assessment/Plan - Assessment Assessment: Patient is awake, calm in no acute distress. - Plan Plan: Patient is under psychiatric care. Will continue to monitor. Nutritional Asmnt/Malnutr-PDOC - Dietary Evaluation Malnutrition Findings (Please click <Entered> for more info): Nutritional Asmnt/Malnutrition Start: 08/10/17 17: 28 Text: Status: Complete Freq: Document 08/10/17 17:30 GSUN (Rec: 08/10/17 17:57 [email or web address]) Nutritional Asmnt/Malnutrition Patient General Information Nutritional Screening Moderate Risk Screening Diagnosis Mood disorder, dementia Pertinent Medical Hx/Surgical Hx CAD, CHF, dementia, schizophrenia, weakness Subjective Information 87 year old male. Pt was unavilable during visit. Per RN notes, pt is confused and orientated x1 only. Avg PO intake 100% of meals since adm , meeting nutritional needs. However, noted pt refused breakfast and lunch yesterday, reason unknown. 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 Current Diet Order/ Nutrition Support Low sodium Pertinent Medications Senna Pertinent Labs No pertinent labs Nutritional Hx/Data Height 1.63 m Height (Calculated Centimeters) 162.6 Current Weight (lbs) 56.79 kg Weight (Calculated Kilograms) 56.8 Weight (Calculated Grams) 53922.8 [place] Body Weight 130 Weight Status Approriate GI Symptoms Skin Integrity/Comment: Dk Vargas. Skin intact. Current %PO Good (75-100%) Estimated Nutritional Goals Calories/Kcals/Kg CBW 125.2lb/56.9kg Kcals Calculated 1423-1707kcal (25-30kcal/kg) Protein Calculated 57g (1g/kg) Fluid: ml 1423-1707ml (1ml/kcal) Nutritional Problem 1. Problem Problem No nutritional problem at this time. Intervention/Recommendation Comments 1. Continue with current diet order. Avg PO intake is adequate. 2. Provide sueprvision as needed. Pt refused meals x2. Expected Outcomes/Goals Expected Outcomes/Goals 1. PO intake conitnue to meet at least 75% of estimated nutritional needs.
[2017-08-16] MEDS: Enoxaparin 60 mg/0.6 mL 0.6mL Syr SUBQ SCH (18:06)
--- NOTE | 2017-08-16 20:48 | Progress Notes ---
DATE: 08/16/2017 SUBJECTIVE: Chart reviewed and the patient interviewed. Also discussed the patient's condition with the staff and reviewed records and labs. 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 The patient also is still confused and he is still forgetful and needs lots of redirections. Also, stays by himself in his room most of the time. Otherwise, the patient is cooperative and compliant with taking his medications with no side effects of medications. ASSESSMENT: The patient is still psychotic and forgetful. TREATMENT PLAN: Continue to monitor his behavior and his condition closely. Also, continue Depakote, Aricept, Namenda, and trazodone and continue to work on his behavior modification. JOB# [id number]
--- NOTE | 2017-08-17 08:40 | General Progress Note ---
Subjective - Review of Systems Service Date: 08/17/17 Subjective: I am OK Objective - Results Result Diagrams: 08/11/17 05:34 08/11/17 05:34 Recent Labs: Laboratory Last Values WBC 3.9 Th/cmm (4.8-10.8) L 08/11/17 05:34 RBC 3.41 Mil/cmm (3.80-5.80) L 08/11/17 05:34 Hgb 11.4 gm/dL (12.6-17.4) L 08/11/17 05:34 Hct 33.6 % (39.0-49.0) L D 08/11/17 05:34 MCV 98.4 fl (80-99) 08/11/17 05:34 MCH 33.5 pg (27.0-31.0) H 08/11/17 05:34 MCHC Differential 34.0 pg (28.0-36.0) 08/11/17 05:34 RDW 14.0 % (11.5-20.0) 08/11/17 05:34 Plt Count 182 Th/cmm (150-400) D 08/11/17 05:34 MPV 7.6 fl 08/11/17 05:34 Neutrophils % 44.9 % (40.0-80.0) 08/11/17 05:34 Lymphocytes % 41.2 % (20.0-50.0) 08/11/17 05:34 Monocytes % 12.4 % (2.0-10.0) H 08/11/17 05:34 Eosinophils % 0.8 % (0.0-5.0) 08/11/17 05:34 Basophils % 0.7 % (0.0-2.0) 08/11/17 05:34 Sodium 133 mEq/L (136-145) L 08/11/17 05:34 Potassium 4.3 mEq/L (3.5-5.1) 08/11/17 05:34 Chloride 101 mEq/L (98-107) 08/11/17 05:34 Carbon Dioxide 29.7 mEq/L (21.0-31.0) 08/11/17 05:34 Anion Gap 6.6 (7.0-16.0) L 08/11/17 05:34 BUN 22 mg/dL (7-25) 08/11/17 05:34 Creatinine 0.8 mg/dL (0.7-1.3) 08/11/17 05:34 Est GFR ( Amer) TNP 08/11/17 05:34 Est GFR (Non-Af Amer) TNP 08/11/17 05:34 BUN/Creatinine Ratio 27.5 08/11/17 05:34 Glucose 109 mg/dL (70-105) H 08/11/17 05:34 Calcium 9.1 mg/dL (8.6-10.3) 08/11/17 05:34 Total Bilirubin 0.4 mg/dL (0.3-1.0) 08/11/17 05:34 AST 27 U/L (13-39) 08/11/17 05:34 ALT 13 U/L (7-52) 08/11/17 05:34 Alkaline Phosphatase 45 U/L (34-104) 08/11/17 05:34 Total Protein 6.4 gm/dL (6.0-8.3) 08/11/17 05:34 Albumin 3.2 gm/dL (4.2-5.5) L 08/11/17 05:34 Globulin 3.2 gm/dL 08/11/17 05:34 Albumin/Globulin Ratio 1.0 (1.0-1.8) 08/11/17 05:34 TSH 2.86 uIU/ml (0.34-5.60) 08/11/17 05:34 Valproic Acid 26.7 ug/mL (50.0-100.0) L 08/10/17 15:11 - Physical Exam Vitals and I&O: Vital Signs Temp 98.1 F 08/16/17 19:43 Pulse 63 08/16/17 19:43 Resp 20 08/16/17 19:43 BP 170/57 08/16/17 19:43 Pulse Ox 96 08/16/17 19:43 Intake & Output 08/16/17 08/17/17 08/17/17 18:59 06:59 18:59 Intake Total 1000 300 Balance 1000 300 Intake: Oral 1000 300 Other: # Voids 4 2 # Bowel Movements 0 0 Active Medications: Current Medications Divalproex Sodium (Melitonte ) 250 mg PO TID [facility] PRN Reason: Protocol Stop: 10/10/17 13:59 Last Admin: 08/16/17 20:44 Dose: 250 mg Donepezil HCl (Aricept) 5 mg PO HS [facility] Stop: 10/04/17 20:59 Last Admin: 08/16/17 20:41 Dose: 5 mg Enoxaparin Sodium (Lovenox) 50 mg SUBQ Q24H [facility] Stop: 10/04/17 18:29 Last Admin: 08/16/17 18:06 Dose: 50 mg Memantine (Namenda) 5 mg PO BID [facility] Stop: 10/10/17 16:59 Last Admin: 08/16/17 16:19 Dose: 5 mg Senna (Senna) 8.6 mg PO DAILY [facility] Stop: 10/05/17 08:59 Last Admin: 08/16/17 09:35 Dose: 8.6 mg Simvastatin (Zocor) 20 mg PO HS [facility] PRN Reason: Protocol Stop: 10/04/17 20:59 Last Admin: 08/16/17 20:40 Dose: 20 mg Trazodone HCl (Desyrel) 100 mg PO HS [facility] PRN Reason: Protocol Stop: 10/04/17 20:59 Last Admin: 08/16/17 20:40 Dose: 100 mg General: Alert, Other (Confused) HEENT: Atraumatic Neck: Supple Cardiovascular: Regular rate Lungs: Clear to auscultation Abdomen: Bowel sounds, Soft Extremities: Other (No edema) Neurological: Other (Non ambulatory) Skin: Other (Warm and dry) Psych/Mental Status: Other (Confused, not oriented) Assessment/Plan - Assessment Assessment: Patient is awake, calm in no acute distress. - Plan Plan: Patient is under psychiatric care. Will continue to monitor. Nutritional Asmnt/Malnutr-PDOC - Dietary Evaluation Malnutrition Findings (Please click <Entered> for more info): Nutritional Asmnt/Malnutrition Start: 08/10/17 17: 28 Text: Status: Complete Freq: Document 08/10/17 17:30 GSUN (Rec: 08/10/17 17:57 [email or web address]) Nutritional Asmnt/Malnutrition Patient General Information Nutritional Screening Moderate Risk Screening Diagnosis Mood disorder, dementia Pertinent Medical Hx/Surgical Hx CAD, CHF, dementia, schizophrenia, weakness Subjective Information 87 year old male. Pt was unavilable during visit. Per RN notes, pt is confused and orientated x1 only. Avg PO intake 100% of meals since adm , meeting nutritional needs. However, noted pt refused breakfast and lunch yesterday, reason unknown. RIM BUSTER denied nutritional concerns at this time. Current Diet Order/ Nutrition Support Low sodium Pertinent Medications Senna Pertinent Labs No pertinent labs Nutritional Hx/Data Height 1.63 m Height (Calculated Centimeters) 162.6 Current Weight (lbs) 56.79 kg Weight (Calculated Kilograms) 56.8 Weight (Calculated Grams) 70710.8 [place] Body Weight 130 Weight Status Approriate GI Symptoms Skin Integrity/Comment: Dk Vargas. Skin intact. Current %PO Good (75-100%) Estimated Nutritional Goals Calories/Kcals/Kg CBW 125.2lb/56.9kg Kcals Calculated 1423-1707kcal (25-30kcal/kg) Protein Calculated 57g (1g/kg) Fluid: ml 1423-1707ml (1ml/kcal) Nutritional Problem 1. Problem Problem No nutritional problem at this time. Intervention/Recommendation Comments 1. Continue with current diet order. Avg PO intake is adequate. 2. Provide sueprvision as needed. Pt refused meals x2. Expected Outcomes/Goals Expected Outcomes/Goals 1. PO intake conitnue to meet at least 75% of estimated nutritional needs.
[2017-08-17] MEDS: Enoxaparin 60 mg/0.6 mL 0.6mL Syr SUBQ SCH (17:57)
--- NOTE | 2017-08-18 04:49 | Progress Notes ---
DATE: 08/17/2017 Case was discussed with staff of the patient, reviewed records. The patient continues to be demented, confused, continues to be bizarre. Continues to be unpredictable, impulsive, needing redirection ____ from the trash. He was compliant with the medication with no side effects, no sedation, no nausea, no extrapyramidal symptoms. I will be increasing his Aricept to 10 mg at bedtime to help with his thought process and memory. We will continue to work with the patient in group therapy and milieu therapy, adjust the medication as needed. JOB# [id number]
--- NOTE | 2017-08-18 09:11 | General Progress Note ---
Subjective - Review of Systems Service Date: 08/18/17 Subjective: I am OK Objective - Results Result Diagrams: 08/11/17 05:34 08/11/17 05:34 Recent Labs: Laboratory Last Values WBC 3.9 Th/cmm (4.8-10.8) L 08/11/17 05:34 RBC 3.41 Mil/cmm (3.80-5.80) L 08/11/17 05:34 Hgb 11.4 gm/dL (12.6-17.4) L 08/11/17 05:34 Hct 33.6 % (39.0-49.0) L D 08/11/17 05:34 MCV 98.4 fl (80-99) 08/11/17 05:34 MCH 33.5 pg (27.0-31.0) H 08/11/17 05:34 MCHC Differential 34.0 pg (28.0-36.0) 08/11/17 05:34 RDW 14.0 % (11.5-20.0) 08/11/17 05:34 Plt Count 182 Th/cmm (150-400) D 08/11/17 05:34 MPV 7.6 fl 08/11/17 05:34 Neutrophils % 44.9 % (40.0-80.0) 08/11/17 05:34 Lymphocytes % 41.2 % (20.0-50.0) 08/11/17 05:34 Monocytes % 12.4 % (2.0-10.0) H 08/11/17 05:34 Eosinophils % 0.8 % (0.0-5.0) 08/11/17 05:34 Basophils % 0.7 % (0.0-2.0) 08/11/17 05:34 Sodium 133 mEq/L (136-145) L 08/11/17 05:34 Potassium 4.3 mEq/L (3.5-5.1) 08/11/17 05:34 Chloride 101 mEq/L (98-107) 08/11/17 05:34 Carbon Dioxide 29.7 mEq/L (21.0-31.0) 08/11/17 05:34 Anion Gap 6.6 (7.0-16.0) L 08/11/17 05:34 BUN 22 mg/dL (7-25) 08/11/17 05:34 Creatinine 0.8 mg/dL (0.7-1.3) 08/11/17 05:34 Est GFR ( Amer) TNP 08/11/17 05:34 Est GFR (Non-Af Amer) TNP 08/11/17 05:34 BUN/Creatinine Ratio 27.5 08/11/17 05:34 Glucose 109 mg/dL (70-105) H 08/11/17 05:34 Calcium 9.1 mg/dL (8.6-10.3) 08/11/17 05:34 Total Bilirubin 0.4 mg/dL (0.3-1.0) 08/11/17 05:34 AST 27 U/L (13-39) 08/11/17 05:34 ALT 13 U/L (7-52) 08/11/17 05:34 Alkaline Phosphatase 45 U/L (34-104) 08/11/17 05:34 Total Protein 6.4 gm/dL (6.0-8.3) 08/11/17 05:34 Albumin 3.2 gm/dL (4.2-5.5) L 08/11/17 05:34 Globulin 3.2 gm/dL 08/11/17 05:34 Albumin/Globulin Ratio 1.0 (1.0-1.8) 08/11/17 05:34 TSH 2.86 uIU/ml (0.34-5.60) 08/11/17 05:34 Valproic Acid 26.7 ug/mL (50.0-100.0) L 08/10/17 15:11 - Physical Exam Vitals and I&O: Vital Signs Temp 0 F 08/18/17 06:25 Pulse 62 08/17/17 22:20 Resp 18 08/17/17 20:00 BP 129/60 08/17/17 22:20 Pulse Ox 96 08/16/17 19:43 Intake & Output 08/17/17 08/18/17 08/18/17 18:59 06:59 18:59 Intake Total 480 Balance 480 Intake: Oral 480 Other: # Voids 3 5 # Bowel Movements 0 0 Active Medications: Current Medications Divalproex Sodium (Elina Hernandez) 250 mg PO TID [facility] PRN Reason: Protocol Stop: 10/10/17 13:59 Last Admin: 08/17/17 21:20 Dose: 250 mg Donepezil HCl (Aricept) 10 mg PO HS [facility] Stop: 10/16/17 20:59 Last Admin: 08/17/17 21:20 Dose: 10 mg Enoxaparin Sodium (Lovenox) 50 mg SUBQ Q24H [facility] Stop: 10/04/17 18:29 Last Admin: 08/17/17 17:57 Dose: 50 mg Memantine (Namenda) 5 mg PO BID [facility] Stop: 10/10/17 16:59 Last Admin: 08/17/17 16:47 Dose: 5 mg Senna (Senna) 8.6 mg PO DAILY [facility] Stop: 10/05/17 08:59 Last Admin: 08/17/17 09:15 Dose: 8.6 mg Simvastatin (Zocor) 20 mg PO HS [facility] PRN Reason: Protocol Stop: 10/04/17 20:59 Last Admin: 08/17/17 21:20 Dose: 20 mg Trazodone HCl (Desyrel) 100 mg PO HS [facility] PRN Reason: Protocol Stop: 10/04/17 20:59 Last Admin: 08/17/17 21:20 Dose: 100 mg General: Alert, Other (Confused) HEENT: Atraumatic Neck: Supple Cardiovascular: Regular rate Lungs: Clear to auscultation Abdomen: Bowel sounds, Soft Extremities: Other (No edema) Neurological: Other (Non ambulatory) Skin: Other (Warm and dry) Psych/Mental Status: Other (Confused, not oriented) Assessment/Plan - Assessment Assessment: Patient is awake, calm in no acute distress. - Plan Plan: Patient is under psychiatric care. Will continue to monitor. Nutritional Asmnt/Malnutr-PDOC - Dietary Evaluation Malnutrition Findings (Please click <Entered> for more info): Nutritional Asmnt/Malnutrition Start: 08/10/17 17: 28 Text: Status: Complete Freq: Document 08/10/17 17:30 GSUN (Rec: 08/10/17 17:57 [email or web address]) Nutritional Asmnt/Malnutrition Patient General Information Nutritional Screening Moderate Risk Screening Diagnosis Mood disorder, dementia Pertinent Medical Hx/Surgical Hx CAD, CHF, dementia, schizophrenia, weakness Subjective Information 87 year old male. Pt was unavilable during visit. Per RN notes, pt is confused and orientated x1 only. Avg PO intake 100% of meals since adm , meeting nutritional needs. However, noted pt refused breakfast and lunch yesterday, reason unknown. MILL TENDER WASHING denied nutritional concerns at this time. Current Diet Order/ Nutrition Support Low sodium Pertinent Medications Senna Pertinent Labs No pertinent labs Nutritional Hx/Data Height 1.63 m Height (Calculated Centimeters) 162.6 Current Weight (lbs) 56.79 kg Weight (Calculated Kilograms) 56.8 Weight (Calculated Grams) 13043.8 [place] Body Weight 130 Weight Status Approriate GI Symptoms Skin Integrity/Comment: Dk 17. Skin intact. Current %PO Good (75-100%) Estimated Nutritional Goals Calories/Kcals/Kg CBW 125.2lb/56.9kg Kcals Calculated 1423-1707kcal (25-30kcal/kg) Protein Calculated 57g (1g/kg) Fluid: ml 1423-1707ml (1ml/kcal) Nutritional Problem 1. Problem Problem No nutritional problem at this time. Intervention/Recommendation Comments 1. Continue with current diet order. Avg PO intake is adequate. 2. Provide sueprvision as needed. Pt refused meals x2. Expected Outcomes/Goals Expected Outcomes/Goals 1. PO intake conitnue to meet at least 75% of estimated nutritional needs.
--- NOTE | 2017-08-19 08:35 | Discharge Summary ---
DATE OF DISCHARGE: 08/18/2017 IDENTIFYING INFORMATION: The patient is an 87-year-old male. HISTORY OF PRESENT ILLNESS: The patient was transferred from the medical floor. The patient was admitted because of agitation, irritability, was supposed to come to [facility], went to the medical floor. The patient is demented, unable to carry on a conversation, confused, irritable throughout, ____ admission evaluation, but compliant with the medications with no psychosis, dementia. He was a very poor historian. COURSE IN THE HOSPITAL: The patient was started on medication. He was continued with Depakote 250 mg, increased to 3 times a day by me. Because of her impulsivity, Aricept was continued and increased to 10 mg at bedtime by me. He was continued with Lovenox. Namenda was initiated and increased to 5 mg twice a day. He was also continued with Simvastatin, sennoside and trazodone 100 mg at bedtime. The patient progressively got better. He continues to be demented; however, but no acting out behavior. He was sleeping well, eating well. So as it was felt he could be discharged ____. The patient will be going to SNF ____. FINAL DIAGNOSES: AXIS I: Mood disorder, not otherwise specified; dementia. MEDICAL DIAGNOSES: Deferred to the medical doctor. The patient will be discharged to the SNF facility. Follow up with the psychiatrist and primary care physician there. EXPECTED OUTCOME: Stable if the patient complies. [facility]# [id number]
== END 2017-08-18 17:55 | DRG 885 ==
LOC: GERO 14:36
PROVIDERS: ADMIT Psychiatry & Neurology Psychiatry; ATTEND Psychiatry & Neurology Psychiatry
DX: F39 Unspecified mood [affective] disorder (principal); F03.90 Unspecified dementia, unspecified severity, without behavioral disturbance, psychotic disturbance, mood disturbance, and anxiety; I50.9 Heart failure, unspecified; I25.10 Atherosclerotic heart disease of native coronary artery without angina pectoris; F20.9 Schizophrenia, unspecified
CPT/HCPCS: 36415-UA; 80053-TC; 80164-TC; 84443-TC; 85025-TC; J1650; Z7610

== ENCOUNTER 2018-02-27 18:02 | Inpatient (IN) | payer MEDICARE, OTHER ==
[2018-02-27 19:31] LABS: % BASOPHILS 0.6 % (0.0-2.0); % EOSINOPHILS 1.1 % (0.0-5.0); % LYMPHOCYTES 21.9 % (20.0-50.0); % MONOCYTES 10.7 % (2.0-10.0); % NEUTROPHILS 65.7 % (40.0-80.0); EOSINOPHILE ABSOLUTE 0.1 Th/cmm (0.1-0.4); HEMATOCRIT 35.6 % (41.0-60); LYMPHOCYTE ABSOLUTE 1.6 Th/cmm (1.5-3.0); MEAN CELL VOLUME 95.5 fl (80-99); MEAN CORPUSCULAR HEMOGLOBIN 32.2 pg (27.0-31.0); MEAN CORPUSCULAR HGB CONC 33.8 pg (28.0-36.0); MEAN PLATELET VOLUME 6.5 fl; MONOCYTE ABSOLUTE 0.8 Th/cmm (0.3-1.0); NEUTROPHILE ABSOLUTE 4.7 Th/cmm (1.8-8.0); PLATELET COUNT 213 Th/cmm (150-400); RED BLOOD COUNT 3.73 Mil/cmm (3.80-5.80); WHITE BLOOD COUNT 7.2 Th/cmm (4.8-10.8)
--- NOTE | 2018-02-27 19:36 | ED Physician Chart ---
ED Chief Complaint/HPI - Patient Information Allergies:: Allergies Allergy/AdvReac Type Severity Reaction Status Date / Time No Known Allergies Allergy Verified 07/31/17 14:06 Vitals:: Vital Signs - 8 hr 02/27/18 18:12 Temp 98.8 F HR 57 RR 16 BP 124/56 O2 Sat % 95 <AlexiNegrito - Last Filed: 02/27/18 20:46> - Patient Information Date Seen:: 02/27/18 Time Seen:: 19:00 Chief Complaint:: AGITIATION History of Present Illness:: THIS IS AN AGGRESSIVE 87 YO MALE SENT FROM THE RETIREMENT FOR AN EVALUATION AND TREATMENT OF HIS BEHAVIOR. HE HAS A LONG OF HISTORY OF PSYCHOSIS. HE IS CHRONICALLY ILL WITH BRADYCARDIA, DIABETES MELLITUS,CHF AND DYSPHAGIA. Allergies:: Allergies Allergy/AdvReac Type Severity Reaction Status Date / Time No Known Allergies Allergy Verified 07/31/17 14:06 Vitals:: Vital Signs - 8 hr 02/27/18 18:12 Temp 98.8 F HR 57 RR 16 BP 124/56 O2 Sat % 95 Historian:: EMS, Medical Records Review:: Nurse's Note Reviewed, Transfer documents Reviewed <Matthew Brooks - Last Filed: 02/28/18 19:08> ED Review of Systems - Review of Systems General/Constitutional: No fever, No chills, No weight loss, No weakness, No diaphoresis, No edema, No loss of appetite, Other (THIS PATIENT IS UNABLE TO GIVE A REVIEW OF SYSTEMS.) Skin: No skin lesions, No rash, No bruising Head: No headache, No light-headedness Eyes: No loss of vision, No pain, No diplopia ENT: No earache, No nasal drainage, No sore throat, No tinnitus Neck: No neck pain, No swelling, No thyromegaly, No stiffness, No mass noted Cardio Vascular: No chest pain, No palpitations, No PND, No orthopnea, No edema Pulmonary: No SOB, No cough, No sputum, No wheezing GI: No nausea, No vomiting, No diarrhea, No pain, No melena, No hematochezia, No constipation, No hematemesis G/U: No dysuria, No frequency, No hematuria Musculoskeletal: No bone or joint pain, No back pain, No muscle pain Endocrine: No polyuria, No polydipsia Psychiatric: No prior psych history, No depression, No anxiety, No suicidal ideation Hematopoietic: No bruising, No lymphadenopathy Allergic/Immuno: No urticaria, No angioedema Neurological: No syncope, No focal symptoms, No weakness, No paresthesia, No headache, No seizure, No dizziness, No confusion, No vertigo <Matthew Brooks - Last Filed: 02/28/18 19:08> ED Past Medical History - Past Medical History Obtainable: Yes Past Medical History: HTN, DM, CAD, CHF, CVA/TIA, Dyslipidemia, Arthritis, Dementia Family History: None Social History: Non Smoker, No Alcohol, No Drug Use, Care Facility Surgical History: None Psychiatricy History: Depression, Dementia <Matthew Brooks - Last Filed: 02/28/18 19:08> Family Medical History - Family Member Mother History Unknown: Yes Hx Family Cancer: No Hx Family Coronary Artery Disease: No Hx Family Hypertension: No Hx Family Diabetes: No Hx Family Seizures: No <Matthew Brooks - Last Filed: 02/28/18 19:08> ED Physical Exam - Physical Examination General/Constitutional: Awake, Well-developed, well-nourished, Alert, No distress, GCS 15, Non-toxic appearing, Ambulatory Other Gen/Cons comments:: CONFUSED AND UNCOOPERATIVE Head: Atraumatic Eyes: Lids, conjuctiva normal, PERRL, EOMI Skin: Nl inspection, No rash, No skin lesions, No ecchymosis, Well hydrated, No lymphadenopathy ENMT: External ears, nose nl, Nasal exam nl, Lips, teeth, gums nl Neck: Nontender, Full ROM w/o pain, No JVD, No nuchal rigidity, No bruit, No mass, No stridor Respiratory: Nl effort/Exclusion, Clear to Auscultation, No Wheeze/Rhonchi/Rales Cardio Vascular: RRR, No murmur, gallop, rubs, NL S1 S2 GI: No tenderness/rebounding/guarding, No organomegaly, No hernia, Normal BS's, Nondistended, No mass/bruits, No McBurney tenderness : No CVA tenderness Extremities: No tenderness or effusion, Full ROM, normal strength in all extremities, No edema, Normal digits & nails Neuro/Psych: Alert/oriented, DTR's symmetric, Normal sensory exam, Normal motor strength, Judgement/insight normal (POOR JUDGEMENT AND INSIGHT AND IS DISORIENTED TIMES FOUR), Mood normal, Normal gait, No focal deficits Misc: Normal back, No paraspinal tenderness <Matthew Brooks - Last Filed: 02/28/18 19:08> ED Labs/Radiology/EKG Results - Lab Results Results: Laboratory Tests 02/27/18 02/27/18 02/27/18 19:25 19:25 19:25 WBC 7.2 RBC 3.73 L Hgb 12.0 Hct 35.6 L MCV 95.5 MCH 32.2 H MCHC Differential 33.8 RDW 13.0 Plt Count 213 MPV 6.5 Neutrophils % 65.7 Lymphocytes % 21.9 Monocytes % 10.7 H Eosinophils % 1.1 Basophils % 0.6 PT 10.1 INR 0.97 Sodium 133 L Potassium 3.8 Chloride 101 Carbon Dioxide 24.7 Anion Gap 11.1 BUN 20 Creatinine 0.8 Est GFR ( Amer) TNP Est GFR (Non-Af Amer) TNP BUN/Creatinine Ratio 25.0 Glucose 155 H Calcium 9.1 Total Bilirubin 0.3 AST 18 ALT 10 Alkaline Phosphatase 67 Troponin I Total Protein 6.8 Albumin 3.8 L Globulin 3.0 Albumin/Globulin Ratio 1.3 TSH Urine Source Urine Color Urine Clarity Urine pH Ur Specific [place] Urine Protein Urine Glucose (UA) Urine Ketones Urine Blood Urine Nitrate Urine Bilirubin Urine Urobilinogen Ur Leukocyte Esterase Urine RBC Urine WBC Ur Epithelial Cells Urine Bacteria 02/27/18 02/27/18 02/27/18 19:25 19:25 19:30 WBC RBC Hgb Hct MCV MCH MCHC Differential RDW Plt Count MPV Neutrophils % Lymphocytes % Monocytes % Eosinophils % Basophils % PT INR Sodium Potassium Chloride Carbon Dioxide Anion Gap BUN Creatinine Est GFR ( Amer) Est GFR (Non-Af Amer) BUN/Creatinine Ratio Glucose Calcium Total Bilirubin AST ALT Alkaline Phosphatase Troponin I < 0.01 L Total Protein Albumin Globulin Albumin/Globulin Ratio TSH 1.71 Urine Source CLEAN C Urine Color YELLOW Urine Clarity CLEAR Urine pH 6.5 Ur Specific [place] <= 1.005 Urine Protein NEGATIVE Urine Glucose (UA) NEGATIVE Urine Ketones NEGATIVE Urine Blood NEGATIVE Urine Nitrate NEGATIVE Urine Bilirubin NEGATIVE Urine Urobilinogen 0.2 Ur Leukocyte Esterase NEGATIVE Urine RBC 0-1 Urine WBC NONE SEEN Ur Epithelial Cells OCCASIONAL Urine Bacteria NONE SEEN - Radiology Results Results: CHEST X-RAY = NAD - EKG Interpretations EKG Time:: 19:46 Rate & Rhythm: 63 AND SINUS [place]: LEFT <Negrito Truong - Last Filed: 02/27/18 20:46> ED Assessment - Assessment General Assessment: PSYCHOSIS <Negrito Truong - Last Filed: 02/27/18 20:46> ED Septic Shock - . Is Septic Shock (SBP<90, OR Lactate>4 mmol\L) present?: No - <6hrs of presentation: Vital Signs: Vital Signs - 8 hr 02/27/18 18:12 Temp 98.8 F HR 57 RR 16 BP 124/56 O2 Sat % 95 <Negrito Truong - Last Filed: 02/27/18 20:46> - <6hrs of presentation: Vital Signs: Vital Signs - 8 hr 02/27/18 18:12 Temp 98.8 F HR 57 RR 16 BP 124/56 O2 Sat % 95 <Matthew Brooks - Last Filed: 02/28/18 19:08> ED Reassessment (Disposition) - Reassessment Reassessment Condition:: Improved - Diagnosis Diagnosis:: PSYCHOSIS - Patient Disposition Discharge/Transfer:: Acute Care w/in this hosp Admitting Medical Physician:: Enzo Adames Admitting Psych Physician:: Barbi Colon Condition at Disposition:: Unchanged <Negrito Truong - Last Filed: 02/27/18 20:46> ED Discharge Plan <Negrito Truong - Last Filed: 02/27/18 20:46> <Matthew Brooks - Last Filed: 02/28/18 19:08> - Patient Disposition Admit/Discharge/Transfer: Acute Care w/in this hosp Condition at Disposition: Unchanged
[2018-02-27 19:40] LABS: URINE MICROSCOPIC INDICATED? YES; URINE SOURCE CLEAN C
[2018-02-27 19:47] LABS: URINE BILIRUBIN NEGATIVE (NEGATIVE); URINE BLOOD NEGATIVE (NEGATIVE); URINE GLUCOSE (UA) NEGATIVE (NEGATIVE); URINE KETONE NEGATIVE (NEGATIVE); URINE LEUKOCYTE ESTERASE NEGATIVE (NEGATIVE); URINE NITRATE NEGATIVE (NEGATIVE); URINE PH 6.5 (4.6 - 8.0); URINE PROTEIN NEGATIVE (NEGATIVE); URINE UROBILINOGEN 0.2 E.U./dL (0.2 - 1.0)
[2018-02-27 19:51] LABS: URINE CLARITY CLEAR (CLEAR); URINE COLOR YELLOW; URINE RBC 0-1 /hpf (0-5)
[2018-02-27 19:52] LABS: URINE BACTERIA NONE SEEN /hpf (NONE SEEN); URINE EPITHELIAL CELLS OCCASIONAL /lpf (FEW); URINE WBC NONE SEEN /hpf (0-5)
[2018-02-27 19:53] LABS: INR 0.97 (0.5-1.4); PROTHROMBIN TIME (TEST) 10.1 SECONDS (9.5-11.5)
[2018-02-27 19:55] LABS: ALB/GLOB RATIO 1.3 (1.0-1.8); ALBUMIN 3.8 gm/dL (4.2-5.5); ALKALINE PHOSPHATASE 67 U/L (34-104); ANION GAP 11.1 (7.0-16.0); BILIRUBIN,TOTAL 0.3 mg/dL (0.3-1.0); BUN - UREA NITROGEN 20 mg/dL (7-25); CALCIUM SERUM 9.1 mg/dL (8.6-10.3); CARBON DIOXIDE 24.7 mEq/L (21.0-31.0); CHLORIDE 101 mEq/L (98-107); CREATININE - SERUM 0.8 mg/dL (0.7-1.3); GLUCOSE 155 mg/dL (70-105); POTASSIUM SERUM 3.8 mEq/L (3.5-5.1); SGOT 18 U/L (13-39); SGPT/ALT 10 U/L (7-52); SODIUM SERUM 133 mEq/L (136-145); TOTAL PROTEIN,SERUM 6.8 gm/dL (6.0-8.3)
[2018-02-28 00:24] VITALS: BP 125/70
[2018-02-28] MEDS ORDERED: Magnesium Hydroxide (MOM) 30 mL UDC PO PRN (00:31)
[2018-02-28] MEDS ORDERED: Maalox 30 mL Cup PO PRN (00:31)
[2018-02-28] MEDS: INSULIN ASPART SLIDING SCALE 100 UNITS/ML UNIT SUBQ SCH ×4 (06:54→20:45)
[2018-02-28] MEDS ORDERED: Non-Formulary Item 1 EA (Cranberry Fruit Extract [Cranberry] 425 MG) PO SCH (09:00)
--- NOTE | 2018-02-28 10:11 | History and Physical ---
History of Present Illness - HPI Chief Complaint: Increased in agitation HPI: This a permanent resident of a Senior Living that became agitated, he was send to ER for evaluation. Vital Signs: Last Vital Signs Temp 98.0 F 02/28/18 07:00 Pulse 69 02/28/18 07:00 Resp 18 02/28/18 07:00 BP 149/71 02/28/18 07:00 Pulse Ox 96 02/28/18 07:00 Family Medical History - Family Member Mother History Unknown: Yes Hx Family Cancer: No Hx Family Coronary Artery Disease: No Hx Family Hypertension: No Hx Family Diabetes: No Hx Family Seizures: No Father History Unknown: Yes Social History Smoke: No Alcohol: None Drugs: None Lives: [facility] Domestic Violence: Negative - Medications Home Medications: Home Medication Medication Instructions Recorded Type Donepezil Hcl [Aricept] 10 mg PO HS tab 08/18/17 Rx Acetaminophen [Tylenol] 650 mg PO Q4HR PRN 02/27/18 History Amlodipine Besylate 10 mg PO DAILY 02/27/18 History Aspirin [Aspirin Chewable] 81 mg PO DAILY 02/27/18 History Atorvastatin Calcium [Lipitor] 20 mg PO HS 02/27/18 History Benazepril HCl 10 mg PO DAILY 02/27/18 History Cranberry Fruit Extract [Cranberry] 425 mg PO DAILY 02/27/18 History Docusate Sodium [Colace] 100 mg PO DAILY 02/27/18 History Insulin Lispro [Humalog] 0 unit SQ ACHS 02/27/18 History Memantine [Namenda] 10 mg PO BID 02/27/18 History Multivitamin w/ Minerals 1 tab PO DAILY 02/27/18 History [Theragran M] Nitroglycerin 0.4 mg SL Q5MIN PRN 02/27/18 History Sennosides A and B [Senna] 8.6 mg PO HS 02/27/18 History - Allergies Allergies/Adverse Reactions: Allergies Allergy/AdvReac Type Severity Reaction Status Date / Time No Known Allergies Allergy Verified 07/31/17 14:06 Review of Systems - Review of Systems Constitutional: Report: No Significant Eyes: Report: No Significant ENT: Report: No Significant Respiratory: Report: No Significant Cardiovascular: Report: No Significant Gastrointestinal: Report: No Significant Genitourinary: Report: No Significant Musculoskeletal: Report: No Significant Skin: Report: No Significant Neurological: Report: Weakness Physical Exam - Physical Exam HEENT: Report: Ears Nose Throat within normal limits Neck: Report: Within normal limits Cardiovascular Systems: Report: Regular, Rate and Rhythm Respiratory: Report: Breath Sounds are within normal limits Abdomen: Report: Non-tender to palpation Back: Report: Inspection of back is within normal limits. Extremities: Report: Non-tender to palpation. Skin: Report: Color of skin is within normal limits Neuro/Psych: Report: Disoriented to name time or place, Depressed affect - Lab Results All Lab Results last 24 hours: Laboratory Results - last 24 hr 02/28/18 06:53 POC Glucose 96 - Assessment Assessment: Current Active Problems Problem Status Onset AGGRESSION AND BEHAVIORAL CHANGE Acute Patient is awake, alert, confused, agitated at moments: Dx: Psychosis, Schizophrenia, DM, HT, CAD, CHF, PVD. - Plan Plan: Patient is follow by Psychiatry. Will continue with SNF meds. Will continue to monitor.
--- NOTE | 2018-02-28 10:32 | Diagnostic Imaging Report ---
Exam: Portable examination of chest HISTORY: Cough. Findings. Portable upright examination of chest at 2000 hours reviewed compared to prior study 07/31/2017 unchanged appearance No acute pulmonic infiltrates or effusions are noted. Extensive calcification of pleura bilaterally appreciated. The costophrenic angles are clear. Bony thorax intact. The aortic arch calcified. IMPRESSION 1. COPD changes no acute disease Extensive pleural calcifications bilaterally.
[2018-02-28] MEDS: Aspirin 81mg Chewable Tab PO SCH (15:52)
[2018-02-28] MEDS: Multivitamin Tab PO SCH (15:52)
--- NOTE | 2018-02-28 16:16 | Psychosocial Evaluation ---
DATE OF SERVICE: JUSTIFICATION FOR HOSPITALIZATION: Aggressive behaviors at care home, lashing out behaviors. CHIEF COMPLAINT: "I don't know why I am here." HISTORY OF PRESENT ILLNESS: An 87-year-old male sent from a care home facility in the [facility], [facility] with a long history of psychosis, chronic mental illnesses, AO to name, not place, not situation, not year, not month, not day of the week. He has no idea why he is in the hospital. Denies any depression. The patient is resting comfortably in bed. ALLERGIES: No known drug allergies. Vitals were noted. PAST MEDICAL HISTORY: Hypertension, diabetes, CAD, CHF, dyslipidemia, arthritis. PAST PSYCHIATRIC HISTORY: Dementia documented as well as with behavioral disturbances. SOCIAL HISTORY: The patient states he was born in [place] in 1930. He states he is . He has 2 sons, 1 daughter and grandkids. No drugs, no alcohol, no tobacco. MEDICATIONS: Noted. MENTAL STATUS EXAMINATION: Stated age. Fair eye contact. Speech, decreased content. Mood: "Okay." Affect flat. Thought processes were disoriented. No SI, no HI. No overt psychosis, but difficult to assess given his confusional state. Insight and judgment diminished. Very poor impulse control. Memory poor. PROVISIONAL DIAGNOSES: Dementia with behaviors, anxiety, unspecified; mood, unspecified; psychosis, unspecified. Under MEDICAL: Please see full H and P. ESTIMATED LENGTH OF STAY: 7-10 days. ASSESSMENT: The patient requiring inpatient hospitalization, aggressive, agitated, combative could not be cared for at a lower level of care. PLAN: We will review medications, restart medications. Consider adding a medication such as Seroquel or an SSRI. TREATMENT PLAN: Includes group as well as milieu therapy. CONDITIONS FOR DISCHARGE: Improved mood, improved affect better control of any agitation. JOB# [id number]
[2018-02-28] MEDS: Atorvastatin Calcium 10 MG TAB PO SCH (20:48)
[2018-03-01] MEDS: INSULIN ASPART SLIDING SCALE 100 UNITS/ML UNIT SUBQ SCH ×3 (06:39→21:08)
[2018-03-01] MEDS: Multivitamin Tab PO SCH (10:01)
[2018-03-01] MEDS: Aspirin 81mg Chewable Tab PO SCH (10:01)
[2018-03-01] MEDS: Atorvastatin Calcium 10 MG TAB PO SCH (21:09)
--- NOTE | 2018-03-02 00:13 | Progress Notes ---
DATE: 03/01/2018 SUBJECTIVE: Case was discussed with staff of the patient and reviewed records. This is an 87-year-old male who was admitted on 02/27/2018 because of acting aggressive at the nursing facility where he was. When he came to the hospital and he was interviewed by Dr. Richard, he has no clue about why he is here. He is demented, confused, unable to make a safe plan for self-care, unpredictable, impulsive, needing redirection. He has been compliant with the medication with no side effects, no sedation, no nausea. PLAN: He is currently on Namenda 10 mg twice a day and Aricept 10 mg at bedtime and when I tried to talk to him he has no clue why he is here, unpredictable, impulsive, unable to tell me the date, where he is, why he is here. We will continue to work with the patient in group therapy, milieu therapy, and adjust medications as needed. JOB# [id number]
[2018-03-02] MEDS: INSULIN ASPART SLIDING SCALE 100 UNITS/ML UNIT SUBQ SCH ×4 (06:47→21:40)
[2018-03-02] MEDS: Aspirin 81mg Chewable Tab PO SCH (08:33)
[2018-03-02] MEDS: Multivitamin Tab PO SCH (08:33)
--- NOTE | 2018-03-02 09:17 | General Progress Note ---
Subjective - Review of Systems Service Date: 03/02/18 Subjective: I am ok Objective - Results Result Diagrams: 02/27/18 19:25 02/27/18 19:25 Recent Labs: Laboratory Last Values WBC 7.2 Th/cmm (4.8-10.8) 02/27/18 19:25 RBC 3.73 Mil/cmm (3.80-5.80) L 02/27/18 19:25 Hgb 12.0 gm/dL (12-16) 02/27/18 19:25 Hct 35.6 % (41.0-60) L 02/27/18 19:25 MCV 95.5 fl (80-99) 02/27/18 19:25 MCH 32.2 pg (27.0-31.0) H 02/27/18 19:25 MCHC Differential 33.8 pg (28.0-36.0) 02/27/18 19:25 RDW 13.0 % (11.5-20.0) 02/27/18 19:25 Plt Count 213 Th/cmm (150-400) 02/27/18 19:25 MPV 6.5 fl 02/27/18 19:25 Neutrophils % 65.7 % (40.0-80.0) 02/27/18 19:25 Lymphocytes % 21.9 % (20.0-50.0) 02/27/18 19:25 Monocytes % 10.7 % (2.0-10.0) H 02/27/18 19:25 Eosinophils % 1.1 % (0.0-5.0) 02/27/18 19:25 Basophils % 0.6 % (0.0-2.0) 02/27/18 19:25 PT 10.1 SECONDS (9.5-11.5) 02/27/18 19:25 INR 0.97 (0.5-1.4) 02/27/18 19:25 Sodium 133 mEq/L (136-145) L 02/27/18 19:25 Potassium 3.8 mEq/L (3.5-5.1) 02/27/18 19:25 Chloride 101 mEq/L (98-107) 02/27/18 19:25 Carbon Dioxide 24.7 mEq/L (21.0-31.0) 02/27/18 19:25 Anion Gap 11.1 (7.0-16.0) 02/27/18 19:25 BUN 20 mg/dL (7-25) 02/27/18 19:25 Creatinine 0.8 mg/dL (0.7-1.3) 02/27/18 19:25 Est GFR ( Amer) TNP 02/27/18 19:25 Est GFR (Non-Af Amer) TNP 02/27/18 19:25 BUN/Creatinine Ratio 25.0 02/27/18 19:25 Glucose 155 mg/dL (70-105) H 02/27/18 19:25 POC Glucose 80 MG/DL (70 - 105) 03/02/18 06:46 Calcium 9.1 mg/dL (8.6-10.3) 02/27/18 19:25 Total Bilirubin 0.3 mg/dL (0.3-1.0) 02/27/18 19:25 AST 18 U/L (13-39) 02/27/18 19:25 ALT 10 U/L (7-52) 02/27/18 19:25 Alkaline Phosphatase 67 U/L (34-104) 02/27/18 19:25 Troponin I < 0.01 ng/mL (0.01-0.05) L 02/27/18 19:25 Total Protein 6.8 gm/dL (6.0-8.3) 02/27/18 19:25 Albumin 3.8 gm/dL (4.2-5.5) L 02/27/18 19:25 Globulin 3.0 gm/dL 02/27/18 19:25 Albumin/Globulin Ratio 1.3 (1.0-1.8) 02/27/18 19:25 TSH 1.71 uIU/ml (0.34-5.60) 02/27/18 19:25 Urine Source CLEAN C 02/27/18 19:30 Urine Color YELLOW 02/27/18 19:30 Urine Clarity CLEAR (CLEAR) 02/27/18 19:30 Urine pH 6.5 (4.6 - 8.0) 02/27/18 19:30 Ur Specific [place] <= 1.005 (1.005-1.030) 02/27/18 19:30 Urine Protein NEGATIVE mg/dL (NEGATIVE) 02/27/18 19:30 Urine Glucose (UA) NEGATIVE mg/dL (NEGATIVE) 02/27/18 19:30 Urine Ketones NEGATIVE mg/dL (NEGATIVE) 02/27/18 19:30 Urine Blood NEGATIVE (NEGATIVE) 02/27/18 19:30 Urine Nitrate NEGATIVE (NEGATIVE) 02/27/18 19:30 Urine Bilirubin NEGATIVE (NEGATIVE) 02/27/18 19:30 Urine Urobilinogen 0.2 E.U./dL (0.2 - 1.0) 02/27/18 19:30 Ur Leukocyte Esterase NEGATIVE (NEGATIVE) 02/27/18 19:30 Urine RBC 0-1 /hpf (0-5) 02/27/18 19:30 Urine WBC NONE SEEN /hpf (0-5) 02/27/18 19:30 Ur Epithelial Cells OCCASIONAL /lpf (FEW) 02/27/18 19:30 Urine Bacteria NONE SEEN /hpf (NONE SEEN) 02/27/18 19:30 - Physical Exam Vitals and I&O: Vital Signs Temp 98.2 F 03/02/18 05:57 Pulse 60 03/02/18 08:33 Resp 19 03/02/18 05:57 BP 154/63 03/02/18 08:33 Pulse Ox 97 03/02/18 05:57 Intake & Output 03/01/18 03/02/18 03/02/18 18:59 06:59 18:59 Intake Total 950 360 Balance 950 360 Intake: Oral 950 360 Other: # Voids 4 2 # Bowel Movements 1 1 Active Medications: Current Medications Acetaminophen (Tylenol) 650 mg PO Q4HR PRN PRN Reason: Mild Pain / Temp above 100 Stop: 04/29/18 00:30 Al Hydrox/Mg Hydrox/Simethicone (Maalox) 30 ml PO Q4HR PRN PRN Reason: GI DISTRESS Stop: 04/29/18 00:30 Amlodipine Besylate (Norvasc) 10 mg PO DAILY [facility] Stop: 04/29/18 08:59 Last Admin: 03/02/18 08:33 Dose: 10 mg Aspirin (Aspirin Chewable) 81 mg PO DAILY [facility] Stop: 04/29/18 08:59 Last Admin: 03/02/18 08:33 Dose: 81 mg Atorvastatin Calcium (Lipitor) 10 mg PO HS [facility] Stop: 04/29/18 20:59 Last Admin: 03/01/18 21:09 Dose: 10 mg Benazepril HCl (Lotensin) 10 mg PO DAILY [facility] Stop: 04/29/18 08:59 Last Admin: 03/02/18 08:33 Dose: 10 mg Docusate Sodium (Colace) 100 mg PO DAILY [facility] Stop: 04/29/18 08:59 Last Admin: 03/02/18 08:33 Dose: 100 mg Donepezil HCl (Aricept) 10 mg PO HS [facility] Stop: 04/29/18 20:59 Last Admin: 03/01/18 21:09 Dose: 10 mg Insulin Aspart (Novolog Insulin Sliding Scale) 0 units SUBQ ACHS [facility] PRN Reason: Protocol Stop: 04/29/18 07:29 Last Admin: 03/02/18 06:47 Dose: Not Given Lorazepam (Ativan) 0.5 mg PO Q4HR PRN; Protocol PRN Reason: Anxiety Stop: 03/30/18 00:30 Last Admin: 02/28/18 20:48 Dose: 0.5 mg Magnesium Hydroxide (Milk Of Magnesia) 30 ml PO HS PRN PRN Reason: Constipation Memantine (Namenda) 10 mg PO BID [facility] Stop: 04/29/18 08:59 Last Admin: 03/02/18 08:34 Dose: 10 mg Multivitamins/Vitamin C (Theragran) 1 tab PO DAILY [facility] Stop: 04/29/18 08:59 Last Admin: 03/02/18 08:33 Dose: 1 tab Nitroglycerin (Nitrostat) 0.4 mg SL Q5MIN PRN PRN Reason: Chest Pain Stop: 04/29/18 00:38 Senna (Senna) 8.6 mg PO HS [facility] Stop: 04/29/18 20:59 Last Admin: 03/01/18 21:09 Dose: 8.6 mg Zolpidem Tartrate (Ambien) 5 mg PO HS PRN PRN Reason: Insomnia Stop: 04/29/18 00:30 Last Admin: 03/01/18 21:09 Dose: 5 mg General: Alert, Other (Confused) HEENT: Atraumatic Cardiovascular: Regular rate Lungs: Clear to auscultation Abdomen: Bowel sounds Extremities: Other (No edema) Neurological: Other (Unstable gait) Skin: Other (Warm and dry) Psych/Mental Status: Other (Confused not oriented) Assessment/Plan - Problem List Patient Problems: All Active Problems AGGRESSION AND BEHAVIORAL CHANGE (Acute) - Assessment Assessment: Current Active Problems Problem Status Onset AGGRESSION AND BEHAVIORAL CHANGE Acute Patient is awake, alert, confused, agitated at moments: Dx: Psychosis, Schizophrenia, DM, HT, CAD, CHF, PVD. - Plan Plan: Patient is follow by Psychiatry. Will continue with SNF meds. Will continue to monitor.
[2018-03-02] MEDS: Atorvastatin Calcium 10 MG TAB PO SCH (20:18)
--- NOTE | 2018-03-03 03:32 | Progress Notes ---
DATE: 03/02/2018 Case was discussed with staff of the patient. The patient continues to be confused and demented, continues to have episodes of irritability and agitation. He is sleeping better and eating better. He has no clue why he is here. He continues to have poor insight. He continues to have ____ and paranoid at times. No side effects with the medications. We will continue to work with the patient in group therapy, milieu therapy, and adjust medications as needed. JOB# [id number]
[2018-03-03] MEDS: INSULIN ASPART SLIDING SCALE 100 UNITS/ML UNIT SUBQ SCH ×4 (06:58→21:24)
--- NOTE | 2018-03-03 09:09 | General Progress Note ---
Subjective - Review of Systems Service Date: 03/03/18 Subjective: I am ok Objective - Results Result Diagrams: 02/27/18 19:25 02/27/18 19:25 Recent Labs: Laboratory Last Values WBC 7.2 Th/cmm (4.8-10.8) 02/27/18 19:25 RBC 3.73 Mil/cmm (3.80-5.80) L 02/27/18 19:25 Hgb 12.0 gm/dL (12-16) 02/27/18 19:25 Hct 35.6 % (41.0-60) L 02/27/18 19:25 MCV 95.5 fl (80-99) 02/27/18 19:25 MCH 32.2 pg (27.0-31.0) H 02/27/18 19:25 MCHC Differential 33.8 pg (28.0-36.0) 02/27/18 19:25 RDW 13.0 % (11.5-20.0) 02/27/18 19:25 Plt Count 213 Th/cmm (150-400) 02/27/18 19:25 MPV 6.5 fl 02/27/18 19:25 Neutrophils % 65.7 % (40.0-80.0) 02/27/18 19:25 Lymphocytes % 21.9 % (20.0-50.0) 02/27/18 19:25 Monocytes % 10.7 % (2.0-10.0) H 02/27/18 19:25 Eosinophils % 1.1 % (0.0-5.0) 02/27/18 19:25 Basophils % 0.6 % (0.0-2.0) 02/27/18 19:25 PT 10.1 SECONDS (9.5-11.5) 02/27/18 19:25 INR 0.97 (0.5-1.4) 02/27/18 19:25 Sodium 133 mEq/L (136-145) L 02/27/18 19:25 Potassium 3.8 mEq/L (3.5-5.1) 02/27/18 19:25 Chloride 101 mEq/L (98-107) 02/27/18 19:25 Carbon Dioxide 24.7 mEq/L (21.0-31.0) 02/27/18 19:25 Anion Gap 11.1 (7.0-16.0) 02/27/18 19:25 BUN 20 mg/dL (7-25) 02/27/18 19:25 Creatinine 0.8 mg/dL (0.7-1.3) 02/27/18 19:25 Est GFR ( Amer) TNP 02/27/18 19:25 Est GFR (Non-Af Amer) TNP 02/27/18 19:25 BUN/Creatinine Ratio 25.0 02/27/18 19:25 Glucose 155 mg/dL (70-105) H 02/27/18 19:25 POC Glucose 101 MG/DL (70 - 105) 03/03/18 06:27 Calcium 9.1 mg/dL (8.6-10.3) 02/27/18 19:25 Total Bilirubin 0.3 mg/dL (0.3-1.0) 02/27/18 19:25 AST 18 U/L (13-39) 02/27/18 19:25 ALT 10 U/L (7-52) 02/27/18 19:25 Alkaline Phosphatase 67 U/L (34-104) 02/27/18 19:25 Troponin I < 0.01 ng/mL (0.01-0.05) L 02/27/18 19:25 Total Protein 6.8 gm/dL (6.0-8.3) 02/27/18 19:25 Albumin 3.8 gm/dL (4.2-5.5) L 02/27/18 19:25 Globulin 3.0 gm/dL 02/27/18 19:25 Albumin/Globulin Ratio 1.3 (1.0-1.8) 02/27/18 19:25 TSH 1.71 uIU/ml (0.34-5.60) 02/27/18 19:25 Urine Source CLEAN C 02/27/18 19:30 Urine Color YELLOW 02/27/18 19:30 Urine Clarity CLEAR (CLEAR) 02/27/18 19:30 Urine pH 6.5 (4.6 - 8.0) 02/27/18 19:30 Ur Specific [place] <= 1.005 (1.005-1.030) 02/27/18 19:30 Urine Protein NEGATIVE mg/dL (NEGATIVE) 02/27/18 19:30 Urine Glucose (UA) NEGATIVE mg/dL (NEGATIVE) 02/27/18 19:30 Urine Ketones NEGATIVE mg/dL (NEGATIVE) 02/27/18 19:30 Urine Blood NEGATIVE (NEGATIVE) 02/27/18 19:30 Urine Nitrate NEGATIVE (NEGATIVE) 02/27/18 19:30 Urine Bilirubin NEGATIVE (NEGATIVE) 02/27/18 19:30 Urine Urobilinogen 0.2 E.U./dL (0.2 - 1.0) 02/27/18 19:30 Ur Leukocyte Esterase NEGATIVE (NEGATIVE) 02/27/18 19:30 Urine RBC 0-1 /hpf (0-5) 02/27/18 19:30 Urine WBC NONE SEEN /hpf (0-5) 02/27/18 19:30 Ur Epithelial Cells OCCASIONAL /lpf (FEW) 02/27/18 19:30 Urine Bacteria NONE SEEN /hpf (NONE SEEN) 02/27/18 19:30 - Physical Exam Vitals and I&O: Vital Signs Temp 98.1 F 03/03/18 06:39 Pulse 61 03/03/18 06:39 Resp 19 03/03/18 06:39 BP 133/65 03/03/18 06:39 Pulse Ox 97 03/03/18 06:39 Intake & Output 03/02/18 03/03/18 03/03/18 18:59 06:59 18:59 Intake Total 1800 120 Balance 1800 120 Intake: Oral 1800 120 Other: # Voids 4 3 # Bowel Movements 1 Active Medications: Current Medications Acetaminophen (Tylenol) 650 mg PO Q4HR PRN PRN Reason: Mild Pain / Temp above 100 Stop: 04/29/18 00:30 Al Hydrox/Mg Hydrox/Simethicone (Maalox) 30 ml PO Q4HR PRN PRN Reason: GI DISTRESS Stop: 04/29/18 00:30 Amlodipine Besylate (Norvasc) 10 mg PO DAILY [facility] Stop: 04/29/18 08:59 Last Admin: 03/02/18 08:33 Dose: 10 mg Aspirin (Aspirin Chewable) 81 mg PO DAILY [facility] Stop: 04/29/18 08:59 Last Admin: 03/02/18 08:33 Dose: 81 mg Atorvastatin Calcium (Lipitor) 10 mg PO HS [facility] Stop: 04/29/18 20:59 Last Admin: 03/02/18 20:18 Dose: 10 mg Benazepril HCl (Lotensin) 10 mg PO DAILY [facility] Stop: 04/29/18 08:59 Last Admin: 03/02/18 08:33 Dose: 10 mg Docusate Sodium (Colace) 100 mg PO DAILY [facility] Stop: 04/29/18 08:59 Last Admin: 03/02/18 08:33 Dose: 100 mg Donepezil HCl (Aricept) 10 mg PO HS [facility] Stop: 04/29/18 20:59 Last Admin: 03/02/18 20:18 Dose: 10 mg Insulin Aspart (Novolog Insulin Sliding Scale) 0 units SUBQ ACHS [facility] PRN Reason: Protocol Stop: 04/29/18 07:29 Last Admin: 03/03/18 06:58 Dose: Not Given Lorazepam (Ativan) 0.5 mg PO Q4HR PRN; Protocol PRN Reason: Anxiety Stop: 03/30/18 00:30 Last Admin: 03/02/18 20:18 Dose: 0.5 mg Magnesium Hydroxide (Milk Of Magnesia) 30 ml PO HS PRN PRN Reason: Constipation Memantine (Namenda) 10 mg PO BID [facility] Stop: 04/29/18 08:59 Last Admin: 03/02/18 16:46 Dose: 10 mg Multivitamins/Vitamin C (Theragran) 1 tab PO DAILY [facility] Stop: 04/29/18 08:59 Last Admin: 03/02/18 08:33 Dose: 1 tab Nitroglycerin (Nitrostat) 0.4 mg SL Q5MIN PRN PRN Reason: Chest Pain Stop: 04/29/18 00:38 Senna (Senna) 8.6 mg PO HS [facility] Stop: 04/29/18 20:59 Last Admin: 03/02/18 20:18 Dose: 8.6 mg Zolpidem Tartrate (Ambien) 5 mg PO HS PRN PRN Reason: Insomnia Stop: 04/29/18 00:30 Last Admin: 03/02/18 20:18 Dose: 5 mg General: Alert, Other (Confused) HEENT: Atraumatic Cardiovascular: Regular rate Lungs: Clear to auscultation Abdomen: Bowel sounds Extremities: Other (No edema) Neurological: Other (Unstable gait) Skin: Other (Warm and dry) Psych/Mental Status: Other (Confused not oriented) Assessment/Plan - Problem List Patient Problems: All Active Problems AGGRESSION AND BEHAVIORAL CHANGE (Acute) - Assessment Assessment: Current Active Problems Problem Status Onset AGGRESSION AND BEHAVIORAL CHANGE Acute Patient is awake, alert, confused, agitated at moments: Dx: Psychosis, Schizophrenia, DM, HT, CAD, CHF, PVD. - Plan Plan: Patient is follow by Psychiatry. Will continue with SNF meds. Will continue to monitor.
[2018-03-03] MEDS: Aspirin 81mg Chewable Tab PO SCH (09:38)
[2018-03-03] MEDS: Multivitamin Tab PO SCH (09:38)
--- NOTE | 2018-03-03 16:31 | Progress Notes ---
DATE: 03/03/2018 Case was discussed with staff of the patient, reviewed records. The patient continues to be unpredictable and impulsive. Continues to have poor insight about his agitated, dangerous behavior, sleeping better, eating better. He is compliant to the medication with no side effects, no sedation, no nausea. The only lab work we have is a high blood sugar on him and we will continue to work with the patient in group therapy, milieu therapy, adjust medication as needed. JOB# [id number]
[2018-03-03] MEDS: Atorvastatin Calcium 10 MG TAB PO SCH (21:24)
[2018-03-04] MEDS: INSULIN ASPART SLIDING SCALE 100 UNITS/ML UNIT SUBQ SCH ×4 (06:36→21:09)
[2018-03-04] MEDS: Multivitamin Tab PO SCH (08:48)
[2018-03-04] MEDS: Aspirin 81mg Chewable Tab PO SCH (08:48)
--- NOTE | 2018-03-04 09:48 | General Progress Note ---
Subjective - Review of Systems Service Date: 03/04/18 Subjective: I am ok Objective - Results Result Diagrams: 02/27/18 19:25 02/27/18 19:25 Recent Labs: Laboratory Last Values WBC 7.2 Th/cmm (4.8-10.8) 02/27/18 19:25 RBC 3.73 Mil/cmm (3.80-5.80) L 02/27/18 19:25 Hgb 12.0 gm/dL (12-16) 02/27/18 19:25 Hct 35.6 % (41.0-60) L 02/27/18 19:25 MCV 95.5 fl (80-99) 02/27/18 19:25 MCH 32.2 pg (27.0-31.0) H 02/27/18 19:25 MCHC Differential 33.8 pg (28.0-36.0) 02/27/18 19:25 RDW 13.0 % (11.5-20.0) 02/27/18 19:25 Plt Count 213 Th/cmm (150-400) 02/27/18 19:25 MPV 6.5 fl 02/27/18 19:25 Neutrophils % 65.7 % (40.0-80.0) 02/27/18 19:25 Lymphocytes % 21.9 % (20.0-50.0) 02/27/18 19:25 Monocytes % 10.7 % (2.0-10.0) H 02/27/18 19:25 Eosinophils % 1.1 % (0.0-5.0) 02/27/18 19:25 Basophils % 0.6 % (0.0-2.0) 02/27/18 19:25 PT 10.1 SECONDS (9.5-11.5) 02/27/18 19:25 INR 0.97 (0.5-1.4) 02/27/18 19:25 Sodium 133 mEq/L (136-145) L 02/27/18 19:25 Potassium 3.8 mEq/L (3.5-5.1) 02/27/18 19:25 Chloride 101 mEq/L (98-107) 02/27/18 19:25 Carbon Dioxide 24.7 mEq/L (21.0-31.0) 02/27/18 19:25 Anion Gap 11.1 (7.0-16.0) 02/27/18 19:25 BUN 20 mg/dL (7-25) 02/27/18 19:25 Creatinine 0.8 mg/dL (0.7-1.3) 02/27/18 19:25 Est GFR ( Amer) TNP 02/27/18 19:25 Est GFR (Non-Af Amer) TNP 02/27/18 19:25 BUN/Creatinine Ratio 25.0 02/27/18 19:25 Glucose 155 mg/dL (70-105) H 02/27/18 19:25 POC Glucose 97 MG/DL (70 - 105) 03/04/18 06:10 Calcium 9.1 mg/dL (8.6-10.3) 02/27/18 19:25 Total Bilirubin 0.3 mg/dL (0.3-1.0) 02/27/18 19:25 AST 18 U/L (13-39) 02/27/18 19:25 ALT 10 U/L (7-52) 02/27/18 19:25 Alkaline Phosphatase 67 U/L (34-104) 02/27/18 19:25 Troponin I < 0.01 ng/mL (0.01-0.05) L 02/27/18 19:25 Total Protein 6.8 gm/dL (6.0-8.3) 02/27/18 19:25 Albumin 3.8 gm/dL (4.2-5.5) L 02/27/18 19:25 Globulin 3.0 gm/dL 02/27/18 19:25 Albumin/Globulin Ratio 1.3 (1.0-1.8) 02/27/18 19:25 TSH 1.71 uIU/ml (0.34-5.60) 02/27/18 19:25 Urine Source CLEAN C 02/27/18 19:30 Urine Color YELLOW 02/27/18 19:30 Urine Clarity CLEAR (CLEAR) 02/27/18 19:30 Urine pH 6.5 (4.6 - 8.0) 02/27/18 19:30 Ur Specific [place] <= 1.005 (1.005-1.030) 02/27/18 19:30 Urine Protein NEGATIVE mg/dL (NEGATIVE) 02/27/18 19:30 Urine Glucose (UA) NEGATIVE mg/dL (NEGATIVE) 02/27/18 19:30 Urine Ketones NEGATIVE mg/dL (NEGATIVE) 02/27/18 19:30 Urine Blood NEGATIVE (NEGATIVE) 02/27/18 19:30 Urine Nitrate NEGATIVE (NEGATIVE) 02/27/18 19:30 Urine Bilirubin NEGATIVE (NEGATIVE) 02/27/18 19:30 Urine Urobilinogen 0.2 E.U./dL (0.2 - 1.0) 02/27/18 19:30 Ur Leukocyte Esterase NEGATIVE (NEGATIVE) 02/27/18 19:30 Urine RBC 0-1 /hpf (0-5) 02/27/18 19:30 Urine WBC NONE SEEN /hpf (0-5) 02/27/18 19:30 Ur Epithelial Cells OCCASIONAL /lpf (FEW) 02/27/18 19:30 Urine Bacteria NONE SEEN /hpf (NONE SEEN) 02/27/18 19:30 - Physical Exam Vitals and I&O: Vital Signs Temp 98 F 03/03/18 20:00 Pulse 68 03/04/18 08:49 Resp 18 03/03/18 20:00 BP 154/60 03/04/18 08:49 Pulse Ox 98 03/03/18 20:00 Intake & Output 03/03/18 03/04/18 03/04/18 18:59 06:59 18:59 Intake Total 800 120 Balance 800 120 Intake: Oral 800 120 Other: # Voids 3 3 # Bowel Movements 1 Active Medications: Current Medications Acetaminophen (Tylenol) 650 mg PO Q4HR PRN PRN Reason: Mild Pain / Temp above 100 Stop: 04/29/18 00:30 Al Hydrox/Mg Hydrox/Simethicone (Maalox) 30 ml PO Q4HR PRN PRN Reason: GI DISTRESS Stop: 04/29/18 00:30 Amlodipine Besylate (Norvasc) 10 mg PO DAILY [facility] Stop: 04/29/18 08:59 Last Admin: 03/04/18 08:49 Dose: 10 mg Aspirin (Aspirin Chewable) 81 mg PO DAILY [facility] Stop: 04/29/18 08:59 Last Admin: 03/04/18 08:48 Dose: 81 mg Atorvastatin Calcium (Lipitor) 10 mg PO HS [facility] Stop: 04/29/18 20:59 Last Admin: 03/03/18 21:24 Dose: 10 mg Benazepril HCl (Lotensin) 10 mg PO DAILY [facility] Stop: 04/29/18 08:59 Last Admin: 03/04/18 08:47 Dose: 10 mg Docusate Sodium (Colace) 100 mg PO DAILY [facility] Stop: 04/29/18 08:59 Last Admin: 03/04/18 08:48 Dose: 100 mg Donepezil HCl (Aricept) 10 mg PO HS [facility] Stop: 04/29/18 20:59 Last Admin: 03/03/18 21:24 Dose: 10 mg Insulin Aspart (Novolog Insulin Sliding Scale) 0 units SUBQ ACHS [facility] PRN Reason: Protocol Stop: 04/29/18 07:29 Last Admin: 03/04/18 06:36 Dose: Not Given Lorazepam (Ativan) 0.5 mg PO Q4HR PRN; Protocol PRN Reason: Anxiety Stop: 03/30/18 00:30 Last Admin: 03/02/18 20:18 Dose: 0.5 mg Magnesium Hydroxide (Milk Of Magnesia) 30 ml PO HS PRN PRN Reason: Constipation Memantine (Namenda) 10 mg PO BID [facility] Stop: 04/29/18 08:59 Last Admin: 03/04/18 08:48 Dose: 10 mg Multivitamins/Vitamin C (Theragran) 1 tab PO DAILY [facility] Stop: 04/29/18 08:59 Last Admin: 03/04/18 08:48 Dose: 1 tab Nitroglycerin (Nitrostat) 0.4 mg SL Q5MIN PRN PRN Reason: Chest Pain Stop: 04/29/18 00:38 Senna (Senna) 8.6 mg PO HS [facility] Stop: 04/29/18 20:59 Last Admin: 03/03/18 21:24 Dose: 8.6 mg Zolpidem Tartrate (Ambien) 5 mg PO HS PRN PRN Reason: Insomnia Stop: 04/29/18 00:30 Last Admin: 03/02/18 20:18 Dose: 5 mg General: Alert, Other (Confused) HEENT: Atraumatic Cardiovascular: Regular rate Lungs: Clear to auscultation Abdomen: Bowel sounds Extremities: Other (No edema) Neurological: Other (Unstable gait) Skin: Other (Warm and dry) Psych/Mental Status: Other (Confused not oriented) Assessment/Plan - Problem List Patient Problems: All Active Problems AGGRESSION AND BEHAVIORAL CHANGE (Acute) - Assessment Assessment: Current Active Problems Problem Status Onset AGGRESSION AND BEHAVIORAL CHANGE Acute Patient is awake, alert, confused, agitated at moments: Dx: Psychosis, Schizophrenia, DM, HT, CAD, CHF, PVD. - Plan Plan: Patient is follow by Psychiatry. Will continue with SNF meds. Will continue to monitor. Nutritional Asmnt/Malnutr-PDOC - Dietary Evaluation Malnutrition Findings (Please click <Entered> for more info): Nutritional Asmnt/Malnutrition Start: 03/03/18 11: 41 Text: Status: Complete Freq: Document 03/03/18 11:41 VERÓNICA (Rec: 03/03/18 11:46 [facility] Nutritional Asmnt/Malnutrition Patient General Information Nutritional Screening Moderate Risk Diagnosis psychosis NOS Pertinent Medical Hx/Surgical Hx HTN, DM, CAD, CHF, CVA/TIA, dyslipidemia, arthritis, dementia, depression Subjective Information Pt seen sitting in dining room waiting for lunch. Pt stated "I am hungry". No food preferemce provided. Per EMR PO intake 50-100%, avg 75%. On 03/02 PO intake 50-75% noted. Current Diet Order/ Nutrition Support [facility] soft ground, GILDA, CCHO Pertinent Medications colace, novolog, theragran, senna Pertinent Labs 02/27 Na 133 03/01-03/03 POC 78-127 Nutritional Hx/Data Height 1.63 m Height (Calculated Centimeters) 162.6 Current Weight (lbs) 56.699 kg Weight (Calculated Kilograms) 56.7 Weight (Calculated Grams) 96119.0 [place] Body Weight 120 Body Mass Index (BMI) 21.4 Weight Status Approriate GI Symptoms GI Symptoms None Last BM / Difficult in: None Skin Integrity/Comment: intact Current %PO Good (75-100%) Estimated Nutritional Goals BEE in Kcals: Using Current wt Calories/Kcals/Kg 25-30 Kcals Calculated 1176-7469 Protein: Using Current wt Protein g/k-1.2 Protein Calculated 57-68 Fluid: ml 1425-1710ml (1ml/kcal) Nutritional Problem No current Nutrition Prob Problem N/A Malnutrition Alert Protein-Calorie Malnutrition N/A Is there a minimum of two criteria No selected? Query Text:Check all the applicable criteria. A minimum of two criteria are recommended for diagnosis of either severe or non-severe malnutrition. Intervention/Recommendation Comments 1. Continue with [facility] soft ground diet as ordered. 2. Monitor PO intake, wt, labs and skin integrity 3. F/U as low risk in 7 days, 03/10 Expected Outcomes/Goals Expected Outcomes/Goals 1. PO intake to meet at least 75% of nutritional needs. 2. Wt stability, skin to remain intact, labs to approach WNL.
--- NOTE | 2018-03-04 16:21 | Progress Notes ---
DATE: 03/04/2018 SUBJECTIVE: Case was discussed with staff of the patient and reviewed records. The patient continues to be unpredictable, impulsive with episodes of irritability and uncontrollable behavior. He continues to have poor insight. Continues to be unable to make safe plan for self-care, demented, and confused. PLAN: I will be adding a very small dose of Depakote for the patient. No side effects with the medication, no sedation, no nausea. Discussed side effects and we will continue outpatient group therapy, milieu therapy, and adjust medication as needed. JOB# [id number]
[2018-03-04] MEDS: Atorvastatin Calcium 10 MG TAB PO SCH (21:09)
[2018-03-05] MEDS: INSULIN ASPART SLIDING SCALE 100 UNITS/ML UNIT SUBQ SCH ×4 (06:39→20:51)
--- NOTE | 2018-03-05 08:51 | General Progress Note ---
Subjective - Review of Systems Service Date: 03/05/18 Subjective: I am ok Objective - Results Result Diagrams: 02/27/18 19:25 02/27/18 19:25 Recent Labs: Laboratory Last Values WBC 7.2 Th/cmm (4.8-10.8) 02/27/18 19:25 RBC 3.73 Mil/cmm (3.80-5.80) L 02/27/18 19:25 Hgb 12.0 gm/dL (12-16) 02/27/18 19:25 Hct 35.6 % (41.0-60) L 02/27/18 19:25 MCV 95.5 fl (80-99) 02/27/18 19:25 MCH 32.2 pg (27.0-31.0) H 02/27/18 19:25 MCHC Differential 33.8 pg (28.0-36.0) 02/27/18 19:25 RDW 13.0 % (11.5-20.0) 02/27/18 19:25 Plt Count 213 Th/cmm (150-400) 02/27/18 19:25 MPV 6.5 fl 02/27/18 19:25 Neutrophils % 65.7 % (40.0-80.0) 02/27/18 19:25 Lymphocytes % 21.9 % (20.0-50.0) 02/27/18 19:25 Monocytes % 10.7 % (2.0-10.0) H 02/27/18 19:25 Eosinophils % 1.1 % (0.0-5.0) 02/27/18 19:25 Basophils % 0.6 % (0.0-2.0) 02/27/18 19:25 PT 10.1 SECONDS (9.5-11.5) 02/27/18 19:25 INR 0.97 (0.5-1.4) 02/27/18 19:25 Sodium 133 mEq/L (136-145) L 02/27/18 19:25 Potassium 3.8 mEq/L (3.5-5.1) 02/27/18 19:25 Chloride 101 mEq/L (98-107) 02/27/18 19:25 Carbon Dioxide 24.7 mEq/L (21.0-31.0) 02/27/18 19:25 Anion Gap 11.1 (7.0-16.0) 02/27/18 19:25 BUN 20 mg/dL (7-25) 02/27/18 19:25 Creatinine 0.8 mg/dL (0.7-1.3) 02/27/18 19:25 Est GFR ( Amer) TNP 02/27/18 19:25 Est GFR (Non-Af Amer) TNP 02/27/18 19:25 BUN/Creatinine Ratio 25.0 02/27/18 19:25 Glucose 155 mg/dL (70-105) H 02/27/18 19:25 POC Glucose 100 MG/DL (70 - 105) 03/05/18 06:20 Calcium 9.1 mg/dL (8.6-10.3) 02/27/18 19:25 Total Bilirubin 0.3 mg/dL (0.3-1.0) 02/27/18 19:25 AST 18 U/L (13-39) 02/27/18 19:25 ALT 10 U/L (7-52) 02/27/18 19:25 Alkaline Phosphatase 67 U/L (34-104) 02/27/18 19:25 Troponin I < 0.01 ng/mL (0.01-0.05) L 02/27/18 19:25 Total Protein 6.8 gm/dL (6.0-8.3) 02/27/18 19:25 Albumin 3.8 gm/dL (4.2-5.5) L 02/27/18 19:25 Globulin 3.0 gm/dL 02/27/18 19:25 Albumin/Globulin Ratio 1.3 (1.0-1.8) 02/27/18 19:25 TSH 1.71 uIU/ml (0.34-5.60) 02/27/18 19:25 Urine Source CLEAN C 02/27/18 19:30 Urine Color YELLOW 02/27/18 19:30 Urine Clarity CLEAR (CLEAR) 02/27/18 19:30 Urine pH 6.5 (4.6 - 8.0) 02/27/18 19:30 Ur Specific [place] <= 1.005 (1.005-1.030) 02/27/18 19:30 Urine Protein NEGATIVE mg/dL (NEGATIVE) 02/27/18 19:30 Urine Glucose (UA) NEGATIVE mg/dL (NEGATIVE) 02/27/18 19:30 Urine Ketones NEGATIVE mg/dL (NEGATIVE) 02/27/18 19:30 Urine Blood NEGATIVE (NEGATIVE) 02/27/18 19:30 Urine Nitrate NEGATIVE (NEGATIVE) 02/27/18 19:30 Urine Bilirubin NEGATIVE (NEGATIVE) 02/27/18 19:30 Urine Urobilinogen 0.2 E.U./dL (0.2 - 1.0) 02/27/18 19:30 Ur Leukocyte Esterase NEGATIVE (NEGATIVE) 02/27/18 19:30 Urine RBC 0-1 /hpf (0-5) 02/27/18 19:30 Urine WBC NONE SEEN /hpf (0-5) 02/27/18 19:30 Ur Epithelial Cells OCCASIONAL /lpf (FEW) 02/27/18 19:30 Urine Bacteria NONE SEEN /hpf (NONE SEEN) 02/27/18 19:30 - Physical Exam Vitals and I&O: Vital Signs Temp 97.2 F 03/04/18 14:30 Pulse 64 03/04/18 14:30 Resp 18 03/04/18 14:30 BP 147/59 03/04/18 14:30 Pulse Ox 96 03/04/18 14:30 Active Medications: Current Medications Acetaminophen (Tylenol) 650 mg PO Q4HR PRN PRN Reason: Mild Pain / Temp above 100 Stop: 04/29/18 00:30 Al Hydrox/Mg Hydrox/Simethicone (Maalox) 30 ml PO Q4HR PRN PRN Reason: GI DISTRESS Stop: 04/29/18 00:30 Amlodipine Besylate (Norvasc) 10 mg PO DAILY [facility] Stop: 04/29/18 08:59 Last Admin: 03/04/18 08:49 Dose: 10 mg Aspirin (Aspirin Chewable) 81 mg PO DAILY [facility] Stop: 04/29/18 08:59 Last Admin: 03/04/18 08:48 Dose: 81 mg Atorvastatin Calcium (Lipitor) 10 mg PO HS [facility] Stop: 04/29/18 20:59 Last Admin: 03/04/18 21:09 Dose: 10 mg Benazepril HCl (Lotensin) 10 mg PO DAILY [facility] Stop: 04/29/18 08:59 Last Admin: 03/04/18 08:47 Dose: 10 mg Divalproex Sodium (Depakote Er) 250 mg PO Q12HR [facility] PRN Reason: Protocol Stop: 05/03/18 20:59 Last Admin: 03/04/18 21:08 Dose: 250 mg Docusate Sodium (Colace) 100 mg PO DAILY [facility] Stop: 04/29/18 08:59 Last Admin: 03/04/18 08:48 Dose: 100 mg Donepezil HCl (Aricept) 10 mg PO HS [facility] Stop: 04/29/18 20:59 Last Admin: 03/04/18 21:09 Dose: 10 mg Insulin Aspart (Novolog Insulin Sliding Scale) 0 units SUBQ ACHS [facility] PRN Reason: Protocol Stop: 04/29/18 07:29 Last Admin: 03/05/18 06:39 Dose: Not Given Lorazepam (Ativan) 0.5 mg PO Q4HR PRN; Protocol PRN Reason: Anxiety Stop: 03/30/18 00:30 Last Admin: 03/02/18 20:18 Dose: 0.5 mg Magnesium Hydroxide (Milk Of Magnesia) 30 ml PO HS PRN PRN Reason: Constipation Memantine (Namenda) 10 mg PO BID [facility] Stop: 04/29/18 08:59 Last Admin: 03/04/18 16:55 Dose: 10 mg Multivitamins/Vitamin C (Theragran) 1 tab PO DAILY [facility] Stop: 04/29/18 08:59 Last Admin: 03/04/18 08:48 Dose: 1 tab Nitroglycerin (Nitrostat) 0.4 mg SL Q5MIN PRN PRN Reason: Chest Pain Stop: 04/29/18 00:38 Senna (Senna) 8.6 mg PO HS [facility] Stop: 04/29/18 20:59 Last Admin: 03/04/18 21:09 Dose: 8.6 mg Zolpidem Tartrate (Ambien) 5 mg PO HS PRN PRN Reason: Insomnia Stop: 04/29/18 00:30 Last Admin: 03/02/18 20:18 Dose: 5 mg General: Alert, Other (Confused) HEENT: Atraumatic Cardiovascular: Regular rate Lungs: Clear to auscultation Abdomen: Bowel sounds Extremities: Other (No edema) Neurological: Other (Unstable gait) Skin: Other (Warm and dry) Psych/Mental Status: Other (Confused not oriented) Assessment/Plan - Problem List Patient Problems: All Active Problems AGGRESSION AND BEHAVIORAL CHANGE (Acute) - Assessment Assessment: Current Active Problems Problem Status Onset AGGRESSION AND BEHAVIORAL CHANGE Acute Patient is awake, alert, confused, agitated at moments: Dx: Psychosis, Schizophrenia, DM, HT, CAD, CHF, PVD. - Plan Plan: Patient is follow by Psychiatry. Will continue with SNF meds. Will continue to monitor. Nutritional Asmnt/Malnutr-PDOC - Dietary Evaluation Malnutrition Findings (Please click <Entered> for more info): Nutritional Asmnt/Malnutrition Start: 03/03/18 11: 41 Text: Status: Complete Freq: Document 03/03/18 11:41 VERÓNICA (Rec: 03/03/18 11:46 [facility] Nutritional Asmnt/Malnutrition Patient General Information Nutritional Screening Moderate Risk Diagnosis psychosis NOS Pertinent Medical Hx/Surgical Hx HTN, DM, CAD, CHF, CVA/TIA, dyslipidemia, arthritis, dementia, depression Subjective Information Pt seen sitting in dining room waiting for lunch. Pt stated "I am hungry". No food preferemce provided. Per EMR PO intake 50-100%, avg 75%. On 03/02 PO intake 50-75% noted. Current Diet Order/ Nutrition Support [facility] soft ground, GILDA, CCHO Pertinent Medications colace, novolog, theragran, senna Pertinent Labs 02/27 Na 133 03/01-03/03 POC 78-127 Nutritional Hx/Data Height 1.63 m Height (Calculated Centimeters) 162.6 Current Weight (lbs) 56.699 kg Weight (Calculated Kilograms) 56.7 Weight (Calculated Grams) 25564.0 [place] Body Weight 120 Body Mass Index (BMI) 21.4 Weight Status Approriate GI Symptoms GI Symptoms None Last BM / Difficult in: None Skin Integrity/Comment: intact Current %PO Good (75-100%) Estimated Nutritional Goals BEE in Kcals: Using Current wt Calories/Kcals/Kg 25-30 Kcals Calculated 4056-1718 Protein: Using Current wt Protein g/k-1.2 Protein Calculated 57-68 Fluid: ml 1425-1710ml (1ml/kcal) Nutritional Problem No current Nutrition Prob Problem N/A Malnutrition Alert Protein-Calorie Malnutrition N/A Is there a minimum of two criteria No selected? Query Text:Check all the applicable criteria. A minimum of two criteria are recommended for diagnosis of either severe or non-severe malnutrition. Intervention/Recommendation Comments 1. Continue with [facility] soft ground diet as ordered. 2. Monitor PO intake, wt, labs and skin integrity 3. F/U as low risk in 7 days, 03/10 Expected Outcomes/Goals Expected Outcomes/Goals 1. PO intake to meet at least 75% of nutritional needs. 2. Wt stability, skin to remain intact, labs to approach WNL.
[2018-03-05] MEDS: Aspirin 81mg Chewable Tab PO SCH (08:58)
[2018-03-05] MEDS: Multivitamin Tab PO SCH (08:59)
[2018-03-05] MEDS: Atorvastatin Calcium 10 MG TAB PO SCH (20:21)
--- NOTE | 2018-03-05 20:59 | Progress Notes ---
DATE: 03/05/2018 Case was discussed with staff of the patient, reviewed records. The patient is reported by the staff to have episodes of irritability, needing redirection. Continues to be unpredictable, impulsive, continues to have poor insight. He is compliant with the Depakote that I initiated to help with his acting out behavior with no side effects, no sedation, no nausea and we will continue to work with the patient in group therapy, milieu therapy, adjust the medication as needed. JOB# [id number]
[2018-03-06] MEDS: INSULIN ASPART SLIDING SCALE 100 UNITS/ML UNIT SUBQ SCH ×4 (06:57→21:39)
[2018-03-06] MEDS: Aspirin 81mg Chewable Tab PO SCH (08:53)
[2018-03-06] MEDS: Multivitamin Tab PO SCH (08:54)
--- NOTE | 2018-03-06 09:29 | General Progress Note ---
Subjective - Review of Systems Service Date: 03/06/18 Subjective: I am ok Objective - Results Result Diagrams: 02/27/18 19:25 02/27/18 19:25 Recent Labs: Laboratory Last Values WBC 7.2 Th/cmm (4.8-10.8) 02/27/18 19:25 RBC 3.73 Mil/cmm (3.80-5.80) L 02/27/18 19:25 Hgb 12.0 gm/dL (12-16) 02/27/18 19:25 Hct 35.6 % (41.0-60) L 02/27/18 19:25 MCV 95.5 fl (80-99) 02/27/18 19:25 MCH 32.2 pg (27.0-31.0) H 02/27/18 19:25 MCHC Differential 33.8 pg (28.0-36.0) 02/27/18 19:25 RDW 13.0 % (11.5-20.0) 02/27/18 19:25 Plt Count 213 Th/cmm (150-400) 02/27/18 19:25 MPV 6.5 fl 02/27/18 19:25 Neutrophils % 65.7 % (40.0-80.0) 02/27/18 19:25 Lymphocytes % 21.9 % (20.0-50.0) 02/27/18 19:25 Monocytes % 10.7 % (2.0-10.0) H 02/27/18 19:25 Eosinophils % 1.1 % (0.0-5.0) 02/27/18 19:25 Basophils % 0.6 % (0.0-2.0) 02/27/18 19:25 PT 10.1 SECONDS (9.5-11.5) 02/27/18 19:25 INR 0.97 (0.5-1.4) 02/27/18 19:25 Sodium 133 mEq/L (136-145) L 02/27/18 19:25 Potassium 3.8 mEq/L (3.5-5.1) 02/27/18 19:25 Chloride 101 mEq/L (98-107) 02/27/18 19:25 Carbon Dioxide 24.7 mEq/L (21.0-31.0) 02/27/18 19:25 Anion Gap 11.1 (7.0-16.0) 02/27/18 19:25 BUN 20 mg/dL (7-25) 02/27/18 19:25 Creatinine 0.8 mg/dL (0.7-1.3) 02/27/18 19:25 Est GFR ( Amer) TNP 02/27/18 19:25 Est GFR (Non-Af Amer) TNP 02/27/18 19:25 BUN/Creatinine Ratio 25.0 02/27/18 19:25 Glucose 155 mg/dL (70-105) H 02/27/18 19:25 POC Glucose 133 MG/DL (70 - 105) H 03/05/18 20:00 Calcium 9.1 mg/dL (8.6-10.3) 02/27/18 19:25 Total Bilirubin 0.3 mg/dL (0.3-1.0) 02/27/18 19:25 AST 18 U/L (13-39) 02/27/18 19:25 ALT 10 U/L (7-52) 02/27/18 19:25 Alkaline Phosphatase 67 U/L (34-104) 02/27/18 19:25 Troponin I < 0.01 ng/mL (0.01-0.05) L 02/27/18 19:25 Total Protein 6.8 gm/dL (6.0-8.3) 02/27/18 19:25 Albumin 3.8 gm/dL (4.2-5.5) L 02/27/18 19:25 Globulin 3.0 gm/dL 02/27/18 19:25 Albumin/Globulin Ratio 1.3 (1.0-1.8) 02/27/18 19:25 TSH 1.71 uIU/ml (0.34-5.60) 02/27/18 19:25 Urine Source CLEAN C 02/27/18 19:30 Urine Color YELLOW 02/27/18 19:30 Urine Clarity CLEAR (CLEAR) 02/27/18 19:30 Urine pH 6.5 (4.6 - 8.0) 02/27/18 19:30 Ur Specific [place] <= 1.005 (1.005-1.030) 02/27/18 19:30 Urine Protein NEGATIVE mg/dL (NEGATIVE) 02/27/18 19:30 Urine Glucose (UA) NEGATIVE mg/dL (NEGATIVE) 02/27/18 19:30 Urine Ketones NEGATIVE mg/dL (NEGATIVE) 02/27/18 19:30 Urine Blood NEGATIVE (NEGATIVE) 02/27/18 19:30 Urine Nitrate NEGATIVE (NEGATIVE) 02/27/18 19:30 Urine Bilirubin NEGATIVE (NEGATIVE) 02/27/18 19:30 Urine Urobilinogen 0.2 E.U./dL (0.2 - 1.0) 02/27/18 19:30 Ur Leukocyte Esterase NEGATIVE (NEGATIVE) 02/27/18 19:30 Urine RBC 0-1 /hpf (0-5) 02/27/18 19:30 Urine WBC NONE SEEN /hpf (0-5) 02/27/18 19:30 Ur Epithelial Cells OCCASIONAL /lpf (FEW) 02/27/18 19:30 Urine Bacteria NONE SEEN /hpf (NONE SEEN) 02/27/18 19:30 - Physical Exam Vitals and I&O: Vital Signs Temp 98.4 F 03/05/18 20:01 Pulse 80 03/06/18 08:53 Resp 18 03/05/18 20:01 BP 131/76 03/06/18 08:53 Pulse Ox 97 03/05/18 20:01 Intake & Output 03/05/18 03/06/18 03/06/18 18:59 06:59 18:59 Intake Total 900 240 Balance 900 240 Intake: Oral 900 240 Other: # Voids 5 1 # Bowel Movements 1 Active Medications: Current Medications Acetaminophen (Tylenol) 650 mg PO Q4HR PRN PRN Reason: Mild Pain / Temp above 100 Stop: 04/29/18 00:30 Al Hydrox/Mg Hydrox/Simethicone (Maalox) 30 ml PO Q4HR PRN PRN Reason: GI DISTRESS Stop: 04/29/18 00:30 Amlodipine Besylate (Norvasc) 10 mg PO DAILY [facility] Stop: 04/29/18 08:59 Last Admin: 03/06/18 08:53 Dose: Not Given Aspirin (Aspirin Chewable) 81 mg PO DAILY [facility] Stop: 04/29/18 08:59 Last Admin: 03/06/18 08:53 Dose: Not Given Atorvastatin Calcium (Lipitor) 10 mg PO HS [facility] Stop: 04/29/18 20:59 Last Admin: 03/05/18 20:21 Dose: 10 mg Benazepril HCl (Lotensin) 10 mg PO DAILY [facility] Stop: 04/29/18 08:59 Last Admin: 03/06/18 08:52 Dose: Not Given Divalproex Sodium (Depakote Er) 250 mg PO Q12HR [facility] PRN Reason: Protocol Stop: 05/03/18 20:59 Last Admin: 03/06/18 08:52 Dose: Not Given Docusate Sodium (Colace) 100 mg PO DAILY [facility] Stop: 04/29/18 08:59 Last Admin: 03/06/18 08:52 Dose: Not Given Donepezil HCl (Aricept) 10 mg PO HS [facility] Stop: 04/29/18 20:59 Last Admin: 03/05/18 20:20 Dose: 10 mg Insulin Aspart (Novolog Insulin Sliding Scale) 0 units SUBQ ACHS [facility] PRN Reason: Protocol Stop: 04/29/18 07:29 Last Admin: 03/06/18 06:57 Dose: Not Given Lorazepam (Ativan) 0.5 mg PO Q4HR PRN; Protocol PRN Reason: Anxiety Stop: 03/30/18 00:30 Last Admin: 03/02/18 20:18 Dose: 0.5 mg Magnesium Hydroxide (Milk Of Magnesia) 30 ml PO HS PRN PRN Reason: Constipation Memantine (Namenda) 10 mg PO BID [facility] Stop: 04/29/18 08:59 Last Admin: 03/06/18 08:52 Dose: Not Given Multivitamins/Vitamin C (Theragran) 1 tab PO DAILY [facility] Stop: 04/29/18 08:59 Last Admin: 03/06/18 08:54 Dose: Not Given Nitroglycerin (Nitrostat) 0.4 mg SL Q5MIN PRN PRN Reason: Chest Pain Stop: 04/29/18 00:38 Senna (Senna) 8.6 mg PO HS [facility] Stop: 04/29/18 20:59 Last Admin: 03/05/18 20:21 Dose: 8.6 mg Zolpidem Tartrate (Ambien) 5 mg PO HS PRN PRN Reason: Insomnia Stop: 04/29/18 00:30 Last Admin: 03/02/18 20:18 Dose: 5 mg General: Alert, Other (Confused) HEENT: Atraumatic Cardiovascular: Regular rate Lungs: Clear to auscultation Abdomen: Bowel sounds Extremities: Other (No edema) Neurological: Other (Unstable gait) Skin: Other (Warm and dry) Psych/Mental Status: Other (Confused not oriented) Assessment/Plan - Problem List Patient Problems: All Active Problems AGGRESSION AND BEHAVIORAL CHANGE (Acute) - Assessment Assessment: Current Active Problems Problem Status Onset AGGRESSION AND BEHAVIORAL CHANGE Acute Patient is awake, alert, confused, agitated at moments: Dx: Psychosis, Schizophrenia, DM, HT, CAD, CHF, PVD. - Plan Plan: Patient is follow by Psychiatry. Will continue with SNF meds. Will continue to monitor. Nutritional Asmnt/Malnutr-PDOC - Dietary Evaluation Malnutrition Findings (Please click <Entered> for more info): Nutritional Asmnt/Malnutrition Start: 03/03/18 11: 41 Text: Status: Complete Freq: Document 03/03/18 11:41 LCVERÓNICAG (Rec: 03/03/18 11:46 LCVERÓNICAG [email or web address]) Nutritional Asmnt/Malnutrition Patient General Information Nutritional Screening Moderate Risk Diagnosis psychosis NOS Pertinent Medical Hx/Surgical Hx HTN, DM, CAD, CHF, CVA/TIA, dyslipidemia, arthritis, dementia, depression Subjective Information Pt seen sitting in dining room waiting for lunch. Pt stated "I am hungry". No food preferemce provided. Per EMR PO intake 50-100%, avg 75%. On 03/02 PO intake 50-75% noted. Current Diet Order/ Nutrition Support [facility] soft ground, GILDA, CCHO Pertinent Medications colace, novolog, theragran, senna Pertinent Labs 02/27 Na 133 03/01-03/03 POC 78-127 Nutritional Hx/Data Height 1.63 m Height (Calculated Centimeters) 162.6 Current Weight (lbs) 56.699 kg Weight (Calculated Kilograms) 56.7 Weight (Calculated Grams) [address] Body Weight 120 Body Mass Index (BMI) 21.4 Weight Status Approriate GI Symptoms GI Symptoms None Last BM 4/3 Difficult in: None Skin Integrity/Comment: intact Current %PO Good (75-100%) Estimated Nutritional Goals BEE in Kcals: Using Current wt Calories/Kcals/Kg 25-30 Kcals Calculated 4860-0161 Protein: Using Current wt Protein g/k-1.2 Protein Calculated 57-68 Fluid: ml 1425-1710ml (1ml/kcal) Nutritional Problem No current Nutrition Prob Problem N/A Malnutrition Alert Protein-Calorie Malnutrition N/A Is there a minimum of two criteria No selected? Query Text:Check all the applicable criteria. A minimum of two criteria are recommended for diagnosis of either severe or non-severe malnutrition. Intervention/Recommendation Comments 1. Continue with GILDA [facility] soft ground diet as ordered. 2. Monitor PO intake, wt, labs and skin integrity 3. F/U as low risk in 7 days, 03/10 Expected Outcomes/Goals Expected Outcomes/Goals 1. PO intake to meet at least 75% of nutritional needs. 2. Wt stability, skin to remain intact, labs to approach WNL.
[2018-03-06] MEDS: Atorvastatin Calcium 10 MG TAB PO SCH (21:14)
[2018-03-07] MEDS: INSULIN ASPART SLIDING SCALE 100 UNITS/ML UNIT SUBQ SCH ×4 (07:05→20:29)
--- NOTE | 2018-03-07 08:23 | Progress Notes ---
DATE: 03/06/2018 The patient was seen and evaluated. The patient's chart were reviewed. Covering for Dr. Colon. The patient is an 87-year-old male who was brought in here from a intermediate facility with history of psychotic behavior. HOSPITAL COURSE: The patient has been treated with Depakote 250 twice a day, Aricept 10 mg a day, and Namenda 10 twice a day. Nursing staff reported the patient at times mostly been disengaged, minimally interactive. Today on [id number] evaluation, the patient is groomed, disengaged, distraught, minimally interactive, and confused. He did not know he was in the hospital and they refused his interview. MENTAL STATUS EXAMINATION: Distraught, withdrawn, and disengaged. ASSESSMENT AND PLAN: The patient with history of severe cognitive impairment with severe unpredictable behavior. We will continue monitoring and evaluation. Continues to be compliant with medication, working very closely with medical van driver and continue with the patient's psychiatrist, primary treatment plan, and goals. JOB# [id number]
[2018-03-07] MEDS: Aspirin 81mg Chewable Tab PO SCH (08:43)
[2018-03-07] MEDS: Multivitamin Tab PO SCH (08:45)
--- NOTE | 2018-03-07 08:57 | Progress Notes ---
DATE: 03/07/[address] Colon. Overnight, nursing staff reported the patient continues to be disengaged in his room. Today on [id number] evaluation, the patient continues to be confused and not knowing exactly where he is but redirectable. Med compliant. MENTAL STATUS EXAMINATION: Disengaged, withdrawn. ASSESSMENT AND PLAN: The patient is an 87-year-old male, severely cognitively impaired, needs a lot of redirection for simple ADLs. We will continue with primary psychiatrist's treatment plan and goals. JOB# [id number]
--- NOTE | 2018-03-07 11:46 | General Progress Note ---
Subjective - Review of Systems Service Date: 03/07/18 Subjective: I am ok Objective - Results Result Diagrams: 02/27/18 19:25 02/27/18 19:25 Recent Labs: Laboratory Last Values WBC 7.2 Th/cmm (4.8-10.8) 02/27/18 19:25 RBC 3.73 Mil/cmm (3.80-5.80) L 02/27/18 19:25 Hgb 12.0 gm/dL (12-16) 02/27/18 19:25 Hct 35.6 % (41.0-60) L 02/27/18 19:25 MCV 95.5 fl (80-99) 02/27/18 19:25 MCH 32.2 pg (27.0-31.0) H 02/27/18 19:25 MCHC Differential 33.8 pg (28.0-36.0) 02/27/18 19:25 RDW 13.0 % (11.5-20.0) 02/27/18 19:25 Plt Count 213 Th/cmm (150-400) 02/27/18 19:25 MPV 6.5 fl 02/27/18 19:25 Neutrophils % 65.7 % (40.0-80.0) 02/27/18 19:25 Lymphocytes % 21.9 % (20.0-50.0) 02/27/18 19:25 Monocytes % 10.7 % (2.0-10.0) H 02/27/18 19:25 Eosinophils % 1.1 % (0.0-5.0) 02/27/18 19:25 Basophils % 0.6 % (0.0-2.0) 02/27/18 19:25 PT 10.1 SECONDS (9.5-11.5) 02/27/18 19:25 INR 0.97 (0.5-1.4) 02/27/18 19:25 Sodium 133 mEq/L (136-145) L 02/27/18 19:25 Potassium 3.8 mEq/L (3.5-5.1) 02/27/18 19:25 Chloride 101 mEq/L (98-107) 02/27/18 19:25 Carbon Dioxide 24.7 mEq/L (21.0-31.0) 02/27/18 19:25 Anion Gap 11.1 (7.0-16.0) 02/27/18 19:25 BUN 20 mg/dL (7-25) 02/27/18 19:25 Creatinine 0.8 mg/dL (0.7-1.3) 02/27/18 19:25 Est GFR ( Amer) TNP 02/27/18 19:25 Est GFR (Non-Af Amer) TNP 02/27/18 19:25 BUN/Creatinine Ratio 25.0 02/27/18 19:25 Glucose 155 mg/dL (70-105) H 02/27/18 19:25 POC Glucose 139 MG/DL (70 - 105) H 03/07/18 11:18 Calcium 9.1 mg/dL (8.6-10.3) 02/27/18 19:25 Total Bilirubin 0.3 mg/dL (0.3-1.0) 02/27/18 19:25 AST 18 U/L (13-39) 02/27/18 19:25 ALT 10 U/L (7-52) 02/27/18 19:25 Alkaline Phosphatase 67 U/L (34-104) 02/27/18 19:25 Troponin I < 0.01 ng/mL (0.01-0.05) L 02/27/18 19:25 Total Protein 6.8 gm/dL (6.0-8.3) 02/27/18 19:25 Albumin 3.8 gm/dL (4.2-5.5) L 02/27/18 19:25 Globulin 3.0 gm/dL 02/27/18 19:25 Albumin/Globulin Ratio 1.3 (1.0-1.8) 02/27/18 19:25 TSH 1.71 uIU/ml (0.34-5.60) 02/27/18 19:25 Urine Source CLEAN C 02/27/18 19:30 Urine Color YELLOW 02/27/18 19:30 Urine Clarity CLEAR (CLEAR) 02/27/18 19:30 Urine pH 6.5 (4.6 - 8.0) 02/27/18 19:30 Ur Specific [place] <= 1.005 (1.005-1.030) 02/27/18 19:30 Urine Protein NEGATIVE mg/dL (NEGATIVE) 02/27/18 19:30 Urine Glucose (UA) NEGATIVE mg/dL (NEGATIVE) 02/27/18 19:30 Urine Ketones NEGATIVE mg/dL (NEGATIVE) 02/27/18 19:30 Urine Blood NEGATIVE (NEGATIVE) 02/27/18 19:30 Urine Nitrate NEGATIVE (NEGATIVE) 02/27/18 19:30 Urine Bilirubin NEGATIVE (NEGATIVE) 02/27/18 19:30 Urine Urobilinogen 0.2 E.U./dL (0.2 - 1.0) 02/27/18 19:30 Ur Leukocyte Esterase NEGATIVE (NEGATIVE) 02/27/18 19:30 Urine RBC 0-1 /hpf (0-5) 02/27/18 19:30 Urine WBC NONE SEEN /hpf (0-5) 02/27/18 19:30 Ur Epithelial Cells OCCASIONAL /lpf (FEW) 02/27/18 19:30 Urine Bacteria NONE SEEN /hpf (NONE SEEN) 02/27/18 19:30 - Physical Exam Vitals and I&O: Vital Signs Temp 98 F 03/07/18 06:27 Pulse 61 03/07/18 08:44 Resp 20 03/07/18 06:27 BP 138/78 03/07/18 08:44 Pulse Ox 98 03/07/18 06:27 Intake & Output 03/06/18 03/07/18 03/07/18 18:59 06:59 18:59 Intake Total 1000 120 Balance 1000 120 Intake: Oral 1000 120 Other: # Voids 3 3 # Bowel Movements 1 Active Medications: Current Medications Acetaminophen (Tylenol) 650 mg PO Q4HR PRN PRN Reason: Mild Pain / Temp above 100 Stop: 04/29/18 00:30 Al Hydrox/Mg Hydrox/Simethicone (Maalox) 30 ml PO Q4HR PRN PRN Reason: GI DISTRESS Stop: 04/29/18 00:30 Amlodipine Besylate (Norvasc) 10 mg PO DAILY [facility] Stop: 04/29/18 08:59 Last Admin: 03/07/18 08:40 Dose: 10 mg Aspirin (Aspirin Chewable) 81 mg PO DAILY [facility] Stop: 04/29/18 08:59 Last Admin: 03/07/18 08:43 Dose: 81 mg Atorvastatin Calcium (Lipitor) 10 mg PO HS [facility] Stop: 04/29/18 20:59 Last Admin: 03/06/18 21:14 Dose: 10 mg Benazepril HCl (Lotensin) 10 mg PO DAILY [facility] Stop: 04/29/18 08:59 Last Admin: 03/07/18 08:44 Dose: 10 mg Divalproex Sodium (Depakote Er) 250 mg PO Q12HR [facility] PRN Reason: Protocol Stop: 05/03/18 20:59 Last Admin: 03/07/18 08:44 Dose: 250 mg Docusate Sodium (Colace) 100 mg PO DAILY [facility] Stop: 04/29/18 08:59 Last Admin: 03/07/18 08:45 Dose: 100 mg Donepezil HCl (Aricept) 10 mg PO HS [facility] Stop: 04/29/18 20:59 Last Admin: 03/06/18 21:14 Dose: 10 mg Insulin Aspart (Novolog Insulin Sliding Scale) 0 units SUBQ ACHS [facility] PRN Reason: Protocol Stop: 04/29/18 07:29 Last Admin: 03/07/18 11:38 Dose: Not Given Lorazepam (Ativan) 0.5 mg PO Q4HR PRN; Protocol PRN Reason: Anxiety Stop: 03/30/18 00:30 Last Admin: 03/02/18 20:18 Dose: 0.5 mg Magnesium Hydroxide (Milk Of Magnesia) 30 ml PO HS PRN PRN Reason: Constipation Memantine (Namenda) 10 mg PO BID [facility] Stop: 04/29/18 08:59 Last Admin: 03/07/18 08:45 Dose: 10 mg Multivitamins/Vitamin C (Theragran) 1 tab PO DAILY [facility] Stop: 04/29/18 08:59 Last Admin: 03/07/18 08:45 Dose: 1 tab Nitroglycerin (Nitrostat) 0.4 mg SL Q5MIN PRN PRN Reason: Chest Pain Stop: 04/29/18 00:38 Senna (Senna) 8.6 mg PO HS [facility] Stop: 04/29/18 20:59 Last Admin: 03/06/18 21:14 Dose: 8.6 mg Zolpidem Tartrate (Ambien) 5 mg PO HS PRN PRN Reason: Insomnia Stop: 04/29/18 00:30 Last Admin: 03/06/18 21:15 Dose: 5 mg General: Alert, Other (Confused) HEENT: Atraumatic Cardiovascular: Regular rate Lungs: Clear to auscultation Abdomen: Bowel sounds Extremities: Other (No edema) Neurological: Other (Unstable gait) Skin: Other (Warm and dry) Psych/Mental Status: Other (Confused not oriented) Assessment/Plan - Problem List Patient Problems: All Active Problems AGGRESSION AND BEHAVIORAL CHANGE (Acute) - Assessment Assessment: Current Active Problems Problem Status Onset AGGRESSION AND BEHAVIORAL CHANGE Acute Patient is awake, alert, confused, agitated at moments: Dx: Psychosis, Schizophrenia, DM, HT, CAD, CHF, PVD. - Plan Plan: Patient is follow by Psychiatry. Will continue with SNF meds. Will continue to monitor. Nutritional Asmnt/Malnutr-PDOC - Dietary Evaluation Malnutrition Findings (Please click <Entered> for more info): Nutritional Asmnt/Malnutrition Start: 03/03/18 11: 41 Text: Status: Complete Freq: Document 03/03/18 11:41 SAHIL (Rec: 03/03/18 11:46 LCVERÓNICAG [email or web address]) Nutritional Asmnt/Malnutrition Patient General Information Nutritional Screening Moderate Risk Diagnosis psychosis NOS Pertinent Medical Hx/Surgical Hx HTN, DM, CAD, CHF, CVA/TIA, dyslipidemia, arthritis, dementia, depression Subjective Information Pt seen sitting in dining room waiting for lunch. Pt stated "I am hungry". No food preferemce provided. Per EMR PO intake 50-100%, avg 75%. On 03/02 PO intake 50-75% noted. Current Diet Order/ Nutrition Support [facility] soft ground, GILDA, CCHO Pertinent Medications colace, novolog, theragran, senna Pertinent Labs 02/27 Na 133 03/01-03/03 POC 78-127 Nutritional Hx/Data Height 1.63 m Height (Calculated Centimeters) 162.6 Current Weight (lbs) 56.699 kg Weight (Calculated Kilograms) 56.7 Weight (Calculated Grams) 15725.0 [place] Body Weight 120 Body Mass Index (BMI) 21.4 Weight Status Approriate GI Symptoms GI Symptoms None Last BM 4/3 Difficult in: None Skin Integrity/Comment: intact Current %PO Good (75-100%) Estimated Nutritional Goals BEE in Kcals: Using Current wt Calories/Kcals/Kg 25-30 Kcals Calculated 1521-2847 Protein: Using Current wt Protein g/k-1.2 Protein Calculated 57-68 Fluid: ml 1425-1710ml (1ml/kcal) Nutritional Problem No current Nutrition Prob Problem N/A Malnutrition Alert Protein-Calorie Malnutrition N/A Is there a minimum of two criteria No selected? Query Text:Check all the applicable criteria. A minimum of two criteria are recommended for diagnosis of either severe or non-severe malnutrition. Intervention/Recommendation Comments 1. Continue with [facility] soft ground diet as ordered. 2. Monitor PO intake, wt, labs and skin integrity 3. F/U as low risk in 7 days, 03/10 Expected Outcomes/Goals Expected Outcomes/Goals 1. PO intake to meet at least 75% of nutritional needs. 2. Wt stability, skin to remain intact, labs to approach WNL.
[2018-03-07] MEDS: Atorvastatin Calcium 10 MG TAB PO SCH (20:25)
[2018-03-08] MEDS: INSULIN ASPART SLIDING SCALE 100 UNITS/ML UNIT SUBQ SCH ×4 (06:42→21:32)
--- NOTE | 2018-03-08 08:44 | General Progress Note ---
Subjective - Review of Systems Service Date: 03/08/18 Subjective: I am ok Objective - Results Result Diagrams: 02/27/18 19:25 02/27/18 19:25 Recent Labs: Laboratory Last Values WBC 7.2 Th/cmm (4.8-10.8) 02/27/18 19:25 RBC 3.73 Mil/cmm (3.80-5.80) L 02/27/18 19:25 Hgb 12.0 gm/dL (12-16) 02/27/18 19:25 Hct 35.6 % (41.0-60) L 02/27/18 19:25 MCV 95.5 fl (80-99) 02/27/18 19:25 MCH 32.2 pg (27.0-31.0) H 02/27/18 19:25 MCHC Differential 33.8 pg (28.0-36.0) 02/27/18 19:25 RDW 13.0 % (11.5-20.0) 02/27/18 19:25 Plt Count 213 Th/cmm (150-400) 02/27/18 19:25 MPV 6.5 fl 02/27/18 19:25 Neutrophils % 65.7 % (40.0-80.0) 02/27/18 19:25 Lymphocytes % 21.9 % (20.0-50.0) 02/27/18 19:25 Monocytes % 10.7 % (2.0-10.0) H 02/27/18 19:25 Eosinophils % 1.1 % (0.0-5.0) 02/27/18 19:25 Basophils % 0.6 % (0.0-2.0) 02/27/18 19:25 PT 10.1 SECONDS (9.5-11.5) 02/27/18 19:25 INR 0.97 (0.5-1.4) 02/27/18 19:25 Sodium 133 mEq/L (136-145) L 02/27/18 19:25 Potassium 3.8 mEq/L (3.5-5.1) 02/27/18 19:25 Chloride 101 mEq/L (98-107) 02/27/18 19:25 Carbon Dioxide 24.7 mEq/L (21.0-31.0) 02/27/18 19:25 Anion Gap 11.1 (7.0-16.0) 02/27/18 19:25 BUN 20 mg/dL (7-25) 02/27/18 19:25 Creatinine 0.8 mg/dL (0.7-1.3) 02/27/18 19:25 Est GFR ( Amer) TNP 02/27/18 19:25 Est GFR (Non-Af Amer) TNP 02/27/18 19:25 BUN/Creatinine Ratio 25.0 02/27/18 19:25 Glucose 155 mg/dL (70-105) H 02/27/18 19:25 POC Glucose 91 MG/DL (70 - 105) 03/08/18 06:14 Calcium 9.1 mg/dL (8.6-10.3) 02/27/18 19:25 Total Bilirubin 0.3 mg/dL (0.3-1.0) 02/27/18 19:25 AST 18 U/L (13-39) 02/27/18 19:25 ALT 10 U/L (7-52) 02/27/18 19:25 Alkaline Phosphatase 67 U/L (34-104) 02/27/18 19:25 Troponin I < 0.01 ng/mL (0.01-0.05) L 02/27/18 19:25 Total Protein 6.8 gm/dL (6.0-8.3) 02/27/18 19:25 Albumin 3.8 gm/dL (4.2-5.5) L 02/27/18 19:25 Globulin 3.0 gm/dL 02/27/18 19:25 Albumin/Globulin Ratio 1.3 (1.0-1.8) 02/27/18 19:25 TSH 1.71 uIU/ml (0.34-5.60) 02/27/18 19:25 Urine Source CLEAN C 02/27/18 19:30 Urine Color YELLOW 02/27/18 19:30 Urine Clarity CLEAR (CLEAR) 02/27/18 19:30 Urine pH 6.5 (4.6 - 8.0) 02/27/18 19:30 Ur Specific [place] <= 1.005 (1.005-1.030) 02/27/18 19:30 Urine Protein NEGATIVE mg/dL (NEGATIVE) 02/27/18 19:30 Urine Glucose (UA) NEGATIVE mg/dL (NEGATIVE) 02/27/18 19:30 Urine Ketones NEGATIVE mg/dL (NEGATIVE) 02/27/18 19:30 Urine Blood NEGATIVE (NEGATIVE) 02/27/18 19:30 Urine Nitrate NEGATIVE (NEGATIVE) 02/27/18 19:30 Urine Bilirubin NEGATIVE (NEGATIVE) 02/27/18 19:30 Urine Urobilinogen 0.2 E.U./dL (0.2 - 1.0) 02/27/18 19:30 Ur Leukocyte Esterase NEGATIVE (NEGATIVE) 02/27/18 19:30 Urine RBC 0-1 /hpf (0-5) 02/27/18 19:30 Urine WBC NONE SEEN /hpf (0-5) 02/27/18 19:30 Ur Epithelial Cells OCCASIONAL /lpf (FEW) 02/27/18 19:30 Urine Bacteria NONE SEEN /hpf (NONE SEEN) 02/27/18 19:30 - Physical Exam Vitals and I&O: Vital Signs Temp 98.4 F 03/08/18 05:51 Pulse 67 03/08/18 05:51 Resp 19 03/08/18 05:51 BP 145/60 03/08/18 05:51 Pulse Ox 97 03/08/18 05:51 Intake & Output 03/07/18 03/08/18 03/08/18 18:59 06:59 18:59 Intake Total 1600 120 Balance 1600 120 Intake: Oral 1600 120 Other: # Voids 4 3 # Bowel Movements 0 0 Active Medications: Current Medications Acetaminophen (Tylenol) 650 mg PO Q4HR PRN PRN Reason: Mild Pain / Temp above 100 Stop: 04/29/18 00:30 Al Hydrox/Mg Hydrox/Simethicone (Maalox) 30 ml PO Q4HR PRN PRN Reason: GI DISTRESS Stop: 04/29/18 00:30 Amlodipine Besylate (Norvasc) 10 mg PO DAILY [facility] Stop: 04/29/18 08:59 Last Admin: 03/07/18 08:40 Dose: 10 mg Aspirin (Aspirin Chewable) 81 mg PO DAILY [facility] Stop: 04/29/18 08:59 Last Admin: 03/07/18 08:43 Dose: 81 mg Atorvastatin Calcium (Lipitor) 10 mg PO HS [facility] Stop: 04/29/18 20:59 Last Admin: 03/07/18 20:25 Dose: 10 mg Benazepril HCl (Lotensin) 10 mg PO DAILY [facility] Stop: 04/29/18 08:59 Last Admin: 03/07/18 08:44 Dose: 10 mg Divalproex Sodium (Depakote Er) 250 mg PO Q12HR [facility] PRN Reason: Protocol Stop: 05/03/18 20:59 Last Admin: 03/07/18 20:25 Dose: 250 mg Docusate Sodium (Colace) 100 mg PO DAILY [facility] Stop: 04/29/18 08:59 Last Admin: 03/07/18 08:45 Dose: 100 mg Donepezil HCl (Aricept) 10 mg PO HS [facility] Stop: 04/29/18 20:59 Last Admin: 03/07/18 20:25 Dose: 10 mg Insulin Aspart (Novolog Insulin Sliding Scale) 0 units SUBQ ACHS [facility] PRN Reason: Protocol Stop: 04/29/18 07:29 Last Admin: 03/08/18 06:42 Dose: Not Given Lorazepam (Ativan) 0.5 mg PO Q4HR PRN; Protocol PRN Reason: Anxiety Stop: 03/30/18 00:30 Last Admin: 03/07/18 20:25 Dose: 0.5 mg Magnesium Hydroxide (Milk Of Magnesia) 30 ml PO HS PRN PRN Reason: Constipation Memantine (Namenda) 10 mg PO BID [facility] Stop: 04/29/18 08:59 Last Admin: 03/07/18 16:39 Dose: 10 mg Multivitamins/Vitamin C (Theragran) 1 tab PO DAILY [facility] Stop: 04/29/18 08:59 Last Admin: 03/07/18 08:45 Dose: 1 tab Nitroglycerin (Nitrostat) 0.4 mg SL Q5MIN PRN PRN Reason: Chest Pain Stop: 04/29/18 00:38 Senna (Senna) 8.6 mg PO HS [facility] Stop: 04/29/18 20:59 Last Admin: 03/07/18 20:26 Dose: 8.6 mg Zolpidem Tartrate (Ambien) 5 mg PO HS PRN PRN Reason: Insomnia Stop: 04/29/18 00:30 Last Admin: 03/07/18 20:26 Dose: 5 mg General: Alert, Other (Confused) HEENT: Atraumatic Cardiovascular: Regular rate Lungs: Clear to auscultation Abdomen: Bowel sounds Extremities: Other (No edema) Neurological: Other (Unstable gait) Skin: Other (Warm and dry) Psych/Mental Status: Other (Confused not oriented) Assessment/Plan - Problem List Patient Problems: All Active Problems AGGRESSION AND BEHAVIORAL CHANGE (Acute) - Assessment Assessment: Current Active Problems Problem Status Onset AGGRESSION AND BEHAVIORAL CHANGE Acute Patient is awake, alert, confused,calm, in no acute distress. Dx: Psychosis, Schizophrenia, DM, HT, CAD, CHF, PVD. - Plan Plan: Patient is follow by Psychiatry. Will continue with SNF meds. Will continue to monitor. Nutritional Asmnt/Malnutr-PDOC - Dietary Evaluation Malnutrition Findings (Please click <Entered> for more info): Nutritional Asmnt/Malnutrition Start: 03/03/18 11: 41 Text: Status: Complete Freq: Document 03/03/18 11:41 [facility] (Rec: 03/03/18 11:46 HEN [email or web address]) Nutritional Asmnt/Malnutrition Patient General Information Nutritional Screening Moderate Risk Diagnosis psychosis NOS Pertinent Medical Hx/Surgical Hx HTN, DM, CAD, CHF, CVA/TIA, dyslipidemia, arthritis, dementia, depression Subjective Information Pt seen sitting in dining room waiting for lunch. Pt stated "I am hungry". No food preferemce provided. Per EMR PO intake 50-100%, avg 75%. On 03/02 PO intake 50-75% noted. Current Diet Order/ Nutrition Support [facility] soft ground, GILDA, CCHO Pertinent Medications colace, novolog, theragran, senna Pertinent Labs 02/27 Na 133 03/01-03/03 POC 78-127 Nutritional Hx/Data Height 1.63 m Height (Calculated Centimeters) 162.6 Current Weight (lbs) 56.699 kg Weight (Calculated Kilograms) 56.7 Weight (Calculated Grams) 78430.0 [place] Body Weight 120 Body Mass Index (BMI) 21.4 Weight Status Approriate GI Symptoms GI Symptoms None Last BM 4/3 Difficult in: None Skin Integrity/Comment: intact Current %PO Good (75-100%) Estimated Nutritional Goals BEE in Kcals: Using Current wt Calories/Kcals/Kg 25-30 Kcals Calculated 3302-8528 Protein: Using Current wt Protein g/k-1.2 Protein Calculated 57-68 Fluid: ml 1425-1710ml (1ml/kcal) Nutritional Problem No current Nutrition Prob Problem N/A Malnutrition Alert Protein-Calorie Malnutrition N/A Is there a minimum of two criteria No selected? Query Text:Check all the applicable criteria. A minimum of two criteria are recommended for diagnosis of either severe or non-severe malnutrition. Intervention/Recommendation Comments 1. Continue with [facility] soft ground diet as ordered. 2. Monitor PO intake, wt, labs and skin integrity 3. F/U as low risk in 7 days, 03/10 Expected Outcomes/Goals Expected Outcomes/Goals 1. PO intake to meet at least 75% of nutritional needs. 2. Wt stability, skin to remain intact, labs to approach WNL.
[2018-03-08] MEDS: Aspirin 81mg Chewable Tab PO SCH (09:59)
[2018-03-08] MEDS: Multivitamin Tab PO SCH (09:59)
[2018-03-08] MEDS: Atorvastatin Calcium 10 MG TAB PO SCH (21:32)
--- NOTE | 2018-03-08 22:46 | Progress Notes ---
DATE: 03/08/2018 Case was discussed with staff of the patient, reviewed records. The patient is unpredictable, impulsive, needing redirection, not compliant with the medication with no side effects, no sedation, no nausea. He is demented, confused. I will be checking his Depakote level to see his level as well as examine his compliance with medications. The patient is internally preoccupied and talking, demented, confused, unable to make a safe plan for self-care and so far no side effects with the medication, no sedation, no nausea. We will continue to work with the patient in group therapy, milieu therapy, adjust the medication as needed. JOB# [id number]
[2018-03-09] MEDS: INSULIN ASPART SLIDING SCALE 100 UNITS/ML UNIT SUBQ SCH ×3 (06:41→21:01)
--- NOTE | 2018-03-09 08:36 | General Progress Note ---
Subjective - Review of Systems Service Date: 03/09/18 Subjective: I am ok Objective - Results Result Diagrams: 02/27/18 19:25 02/27/18 19:25 Recent Labs: Laboratory Last Values WBC 7.2 Th/cmm (4.8-10.8) 02/27/18 19:25 RBC 3.73 Mil/cmm (3.80-5.80) L 02/27/18 19:25 Hgb 12.0 gm/dL (12-16) 02/27/18 19:25 Hct 35.6 % (41.0-60) L 02/27/18 19:25 MCV 95.5 fl (80-99) 02/27/18 19:25 MCH 32.2 pg (27.0-31.0) H 02/27/18 19:25 MCHC Differential 33.8 pg (28.0-36.0) 02/27/18 19:25 RDW 13.0 % (11.5-20.0) 02/27/18 19:25 Plt Count 213 Th/cmm (150-400) 02/27/18 19:25 MPV 6.5 fl 02/27/18 19:25 Neutrophils % 65.7 % (40.0-80.0) 02/27/18 19:25 Lymphocytes % 21.9 % (20.0-50.0) 02/27/18 19:25 Monocytes % 10.7 % (2.0-10.0) H 02/27/18 19:25 Eosinophils % 1.1 % (0.0-5.0) 02/27/18 19:25 Basophils % 0.6 % (0.0-2.0) 02/27/18 19:25 PT 10.1 SECONDS (9.5-11.5) 02/27/18 19:25 INR 0.97 (0.5-1.4) 02/27/18 19:25 Sodium 133 mEq/L (136-145) L 02/27/18 19:25 Potassium 3.8 mEq/L (3.5-5.1) 02/27/18 19:25 Chloride 101 mEq/L (98-107) 02/27/18 19:25 Carbon Dioxide 24.7 mEq/L (21.0-31.0) 02/27/18 19:25 Anion Gap 11.1 (7.0-16.0) 02/27/18 19:25 BUN 20 mg/dL (7-25) 02/27/18 19:25 Creatinine 0.8 mg/dL (0.7-1.3) 02/27/18 19:25 Est GFR ( Amer) TNP 02/27/18 19:25 Est GFR (Non-Af Amer) TNP 02/27/18 19:25 BUN/Creatinine Ratio 25.0 02/27/18 19:25 Glucose 155 mg/dL (70-105) H 02/27/18 19:25 POC Glucose 83 MG/DL (70 - 105) 03/09/18 06:04 Calcium 9.1 mg/dL (8.6-10.3) 02/27/18 19:25 Total Bilirubin 0.3 mg/dL (0.3-1.0) 02/27/18 19:25 AST 18 U/L (13-39) 02/27/18 19:25 ALT 10 U/L (7-52) 02/27/18 19:25 Alkaline Phosphatase 67 U/L (34-104) 02/27/18 19:25 Troponin I < 0.01 ng/mL (0.01-0.05) L 02/27/18 19:25 Total Protein 6.8 gm/dL (6.0-8.3) 02/27/18 19:25 Albumin 3.8 gm/dL (4.2-5.5) L 02/27/18 19:25 Globulin 3.0 gm/dL 02/27/18 19:25 Albumin/Globulin Ratio 1.3 (1.0-1.8) 02/27/18 19:25 TSH 1.71 uIU/ml (0.34-5.60) 02/27/18 19:25 Urine Source CLEAN C 02/27/18 19:30 Urine Color YELLOW 02/27/18 19:30 Urine Clarity CLEAR (CLEAR) 02/27/18 19:30 Urine pH 6.5 (4.6 - 8.0) 02/27/18 19:30 Ur Specific [place] <= 1.005 (1.005-1.030) 02/27/18 19:30 Urine Protein NEGATIVE mg/dL (NEGATIVE) 02/27/18 19:30 Urine Glucose (UA) NEGATIVE mg/dL (NEGATIVE) 02/27/18 19:30 Urine Ketones NEGATIVE mg/dL (NEGATIVE) 02/27/18 19:30 Urine Blood NEGATIVE (NEGATIVE) 02/27/18 19:30 Urine Nitrate NEGATIVE (NEGATIVE) 02/27/18 19:30 Urine Bilirubin NEGATIVE (NEGATIVE) 02/27/18 19:30 Urine Urobilinogen 0.2 E.U./dL (0.2 - 1.0) 02/27/18 19:30 Ur Leukocyte Esterase NEGATIVE (NEGATIVE) 02/27/18 19:30 Urine RBC 0-1 /hpf (0-5) 02/27/18 19:30 Urine WBC NONE SEEN /hpf (0-5) 02/27/18 19:30 Ur Epithelial Cells OCCASIONAL /lpf (FEW) 02/27/18 19:30 Urine Bacteria NONE SEEN /hpf (NONE SEEN) 02/27/18 19:30 Valproic Acid 60.0 ug/mL (50.0-100.0) 03/08/18 13:05 - Physical Exam Vitals and I&O: Vital Signs Temp 97.8 F 03/09/18 06:09 Pulse 60 03/09/18 06:09 Resp 18 03/09/18 06:09 BP 162/68 03/09/18 06:09 Pulse Ox 99 03/09/18 06:09 Intake & Output 03/08/18 03/09/18 03/09/18 18:59 06:59 18:59 Intake Total 1000 240 Balance 1000 240 Intake: Oral 1000 240 Other: # Voids 4 3 # Bowel Movements 0 1 Active Medications: Current Medications Acetaminophen (Tylenol) 650 mg PO Q4HR PRN PRN Reason: Mild Pain / Temp above 100 Stop: 04/29/18 00:30 Al Hydrox/Mg Hydrox/Simethicone (Maalox) 30 ml PO Q4HR PRN PRN Reason: GI DISTRESS Stop: 04/29/18 00:30 Amlodipine Besylate (Norvasc) 10 mg PO DAILY [facility] Stop: 04/29/18 08:59 Last Admin: 03/08/18 10:00 Dose: 10 mg Aspirin (Aspirin Chewable) 81 mg PO DAILY [facility] Stop: 04/29/18 08:59 Last Admin: 03/08/18 09:59 Dose: 81 mg Atorvastatin Calcium (Lipitor) 10 mg PO HS [facility] Stop: 04/29/18 20:59 Last Admin: 03/08/18 21:32 Dose: 10 mg Benazepril HCl (Lotensin) 10 mg PO DAILY [facility] Stop: 04/29/18 08:59 Last Admin: 03/08/18 09:59 Dose: 10 mg Divalproex Sodium (Depakote Er) 250 mg PO Q12HR [facility] PRN Reason: Protocol Stop: 05/03/18 20:59 Last Admin: 03/08/18 21:32 Dose: 250 mg Docusate Sodium (Colace) 100 mg PO DAILY [facility] Stop: 04/29/18 08:59 Last Admin: 03/08/18 09:59 Dose: 100 mg Donepezil HCl (Aricept) 10 mg PO HS [facility] Stop: 04/29/18 20:59 Last Admin: 03/08/18 21:32 Dose: 10 mg Insulin Aspart (Novolog Insulin Sliding Scale) 0 units SUBQ ACHS [facility] PRN Reason: Protocol Stop: 04/29/18 07:29 Last Admin: 03/09/18 06:41 Dose: Not Given Lorazepam (Ativan) 0.5 mg PO Q4HR PRN; Protocol PRN Reason: Anxiety Stop: 03/30/18 00:30 Last Admin: 03/08/18 09:59 Dose: 0.5 mg Magnesium Hydroxide (Milk Of Magnesia) 30 ml PO HS PRN PRN Reason: Constipation Memantine (Namenda) 10 mg PO BID [facility] Stop: 04/29/18 08:59 Last Admin: 03/08/18 17:41 Dose: 10 mg Multivitamins/Vitamin C (Theragran) 1 tab PO DAILY [facility] Stop: 04/29/18 08:59 Last Admin: 03/08/18 09:59 Dose: 1 tab Nitroglycerin (Nitrostat) 0.4 mg SL Q5MIN PRN PRN Reason: Chest Pain Stop: 04/29/18 00:38 Senna (Senna) 8.6 mg PO HS [facility] Stop: 04/29/18 20:59 Last Admin: 03/08/18 21:31 Dose: 8.6 mg Zolpidem Tartrate (Ambien) 5 mg PO HS PRN PRN Reason: Insomnia Stop: 04/29/18 00:30 Last Admin: 03/07/18 20:26 Dose: 5 mg General: Alert, Other (Confused) HEENT: Atraumatic Cardiovascular: Regular rate Lungs: Clear to auscultation Abdomen: Bowel sounds Extremities: Other (No edema) Neurological: Other (Unstable gait) Skin: Other (Warm and dry) Psych/Mental Status: Other (Confused not oriented) Assessment/Plan - Problem List Patient Problems: All Active Problems AGGRESSION AND BEHAVIORAL CHANGE (Acute) - Assessment Assessment: Current Active Problems Problem Status Onset AGGRESSION AND BEHAVIORAL CHANGE Acute Patient is awake, alert, confused,calm, in no acute distress. Dx: Psychosis, Schizophrenia, DM, HT, CAD, CHF, PVD. - Plan Plan: Patient is follow by Psychiatry. Will continue with SNF meds. Will continue to monitor. Nutritional Asmnt/Malnutr-PDOC - Dietary Evaluation Malnutrition Findings (Please click <Entered> for more info): Nutritional Asmnt/Malnutrition Start: 03/03/18 11: 41 Text: Status: Complete Freq: Document 03/03/18 11:41 [facility] (Rec: 03/03/18 11:46 [facility] Nutritional Asmnt/Malnutrition Patient General Information Nutritional Screening Moderate Risk Diagnosis psychosis NOS Pertinent Medical Hx/Surgical Hx HTN, DM, CAD, CHF, CVA/TIA, dyslipidemia, arthritis, dementia, depression Subjective Information Pt seen sitting in dining room waiting for lunch. Pt stated "I am hungry". No food preferemce provided. Per EMR PO intake 50-100%, avg 75%. On 03/02 PO intake 50-75% noted. Current Diet Order/ Nutrition Support [facility] soft ground, GILDA, CCHO Pertinent Medications colace, novolog, theragran, senna Pertinent Labs 02/27 Na 133 03/01-03/03 POC 78-127 Nutritional Hx/Data Height 1.63 m Height (Calculated Centimeters) 162.6 Current Weight (lbs) 56.699 kg Weight (Calculated Kilograms) 56.7 Weight (Calculated Grams) 11680.0 [place] Body Weight 120 Body Mass Index (BMI) 21.4 Weight Status Approriate GI Symptoms GI Symptoms None Last BM 4/3 Difficult in: None Skin Integrity/Comment: intact Current %PO Good (75-100%) Estimated Nutritional Goals BEE in Kcals: Using Current wt Calories/Kcals/Kg 25-30 Kcals Calculated 3470-6641 Protein: Using Current wt Protein g/k-1.2 Protein Calculated 57-68 Fluid: ml 1425-1710ml (1ml/kcal) Nutritional Problem No current Nutrition Prob Problem N/A Malnutrition Alert Protein-Calorie Malnutrition N/A Is there a minimum of two criteria No selected? Query Text:Check all the applicable criteria. A minimum of two criteria are recommended for diagnosis of either severe or non-severe malnutrition. Intervention/Recommendation Comments 1. Continue with [facility] soft ground diet as ordered. 2. Monitor PO intake, wt, labs and skin integrity 3. F/U as low risk in 7 days, 03/10 Expected Outcomes/Goals Expected Outcomes/Goals 1. PO intake to meet at least 75% of nutritional needs. 2. Wt stability, skin to remain intact, labs to approach WNL.
[2018-03-09] MEDS: Aspirin 81mg Chewable Tab PO SCH (09:58)
[2018-03-09] MEDS: Multivitamin Tab PO SCH (09:59)
[2018-03-09] MEDS: Atorvastatin Calcium 10 MG TAB PO SCH (20:54)
--- NOTE | 2018-03-09 23:43 | Progress Notes ---
DATE: 03/09/2018 Case was discussed with staff of the patient, reviewed her records. The patient continues to be unpredictable, impulsive, needing redirection. He is compliant with the medication with no side effects, no sedation, no nausea, no extrapyramidal symptoms, isolating himself, demented, confused, needing redirection, looking disheveled, disorganized with internally preoccupied. No side effects with the medication, no sedation, no nausea and he is on Depakote. We will be checking Depakote level, continue the patient in group therapy, milieu therapy and adjust medications. JOB# [id number]
[2018-03-10] MEDS: INSULIN ASPART SLIDING SCALE 100 UNITS/ML UNIT SUBQ SCH (06:29)
--- NOTE | 2018-03-10 09:10 | General Progress Note ---
Subjective - Review of Systems Service Date: 03/10/18 Subjective: I am ok Objective - Results Result Diagrams: 02/27/18 19:25 02/27/18 19:25 Recent Labs: Laboratory Last Values WBC 7.2 Th/cmm (4.8-10.8) 02/27/18 19:25 RBC 3.73 Mil/cmm (3.80-5.80) L 02/27/18 19:25 Hgb 12.0 gm/dL (12-16) 02/27/18 19:25 Hct 35.6 % (41.0-60) L 02/27/18 19:25 MCV 95.5 fl (80-99) 02/27/18 19:25 MCH 32.2 pg (27.0-31.0) H 02/27/18 19:25 MCHC Differential 33.8 pg (28.0-36.0) 02/27/18 19:25 RDW 13.0 % (11.5-20.0) 02/27/18 19:25 Plt Count 213 Th/cmm (150-400) 02/27/18 19:25 MPV 6.5 fl 02/27/18 19:25 Neutrophils % 65.7 % (40.0-80.0) 02/27/18 19:25 Lymphocytes % 21.9 % (20.0-50.0) 02/27/18 19:25 Monocytes % 10.7 % (2.0-10.0) H 02/27/18 19:25 Eosinophils % 1.1 % (0.0-5.0) 02/27/18 19:25 Basophils % 0.6 % (0.0-2.0) 02/27/18 19:25 PT 10.1 SECONDS (9.5-11.5) 02/27/18 19:25 INR 0.97 (0.5-1.4) 02/27/18 19:25 Sodium 133 mEq/L (136-145) L 02/27/18 19:25 Potassium 3.8 mEq/L (3.5-5.1) 02/27/18 19:25 Chloride 101 mEq/L (98-107) 02/27/18 19:25 Carbon Dioxide 24.7 mEq/L (21.0-31.0) 02/27/18 19:25 Anion Gap 11.1 (7.0-16.0) 02/27/18 19:25 BUN 20 mg/dL (7-25) 02/27/18 19:25 Creatinine 0.8 mg/dL (0.7-1.3) 02/27/18 19:25 Est GFR ( Amer) TNP 02/27/18 19:25 Est GFR (Non-Af Amer) TNP 02/27/18 19:25 BUN/Creatinine Ratio 25.0 02/27/18 19:25 Glucose 155 mg/dL (70-105) H 02/27/18 19:25 POC Glucose 85 MG/DL (70 - 105) 03/10/18 05:52 Calcium 9.1 mg/dL (8.6-10.3) 02/27/18 19:25 Total Bilirubin 0.3 mg/dL (0.3-1.0) 02/27/18 19:25 AST 18 U/L (13-39) 02/27/18 19:25 ALT 10 U/L (7-52) 02/27/18 19:25 Alkaline Phosphatase 67 U/L (34-104) 02/27/18 19:25 Troponin I < 0.01 ng/mL (0.01-0.05) L 02/27/18 19:25 Total Protein 6.8 gm/dL (6.0-8.3) 02/27/18 19:25 Albumin 3.8 gm/dL (4.2-5.5) L 02/27/18 19:25 Globulin 3.0 gm/dL 02/27/18 19:25 Albumin/Globulin Ratio 1.3 (1.0-1.8) 02/27/18 19:25 TSH 1.71 uIU/ml (0.34-5.60) 02/27/18 19:25 Urine Source CLEAN C 02/27/18 19:30 Urine Color YELLOW 02/27/18 19:30 Urine Clarity CLEAR (CLEAR) 02/27/18 19:30 Urine pH 6.5 (4.6 - 8.0) 02/27/18 19:30 Ur Specific [place] <= 1.005 (1.005-1.030) 02/27/18 19:30 Urine Protein NEGATIVE mg/dL (NEGATIVE) 02/27/18 19:30 Urine Glucose (UA) NEGATIVE mg/dL (NEGATIVE) 02/27/18 19:30 Urine Ketones NEGATIVE mg/dL (NEGATIVE) 02/27/18 19:30 Urine Blood NEGATIVE (NEGATIVE) 02/27/18 19:30 Urine Nitrate NEGATIVE (NEGATIVE) 02/27/18 19:30 Urine Bilirubin NEGATIVE (NEGATIVE) 02/27/18 19:30 Urine Urobilinogen 0.2 E.U./dL (0.2 - 1.0) 02/27/18 19:30 Ur Leukocyte Esterase NEGATIVE (NEGATIVE) 02/27/18 19:30 Urine RBC 0-1 /hpf (0-5) 02/27/18 19:30 Urine WBC NONE SEEN /hpf (0-5) 02/27/18 19:30 Ur Epithelial Cells OCCASIONAL /lpf (FEW) 02/27/18 19:30 Urine Bacteria NONE SEEN /hpf (NONE SEEN) 02/27/18 19:30 Valproic Acid 60.0 ug/mL (50.0-100.0) 03/08/18 13:05 - Physical Exam Vitals and I&O: Vital Signs Temp 98.2 F 03/10/18 08:34 Pulse 58 03/10/18 08:34 Resp 19 03/10/18 08:34 BP 153/59 03/10/18 08:34 Pulse Ox 97 03/10/18 08:34 Intake & Output 03/09/18 03/10/18 03/10/18 18:59 06:59 18:59 Intake Total 1000 360 Balance 1000 360 Intake: Oral 1000 360 Other: # Voids 3 2 # Bowel Movements 0 Active Medications: Current Medications Acetaminophen (Tylenol) 650 mg PO Q4HR PRN PRN Reason: Mild Pain / Temp above 100 Stop: 04/29/18 00:30 Al Hydrox/Mg Hydrox/Simethicone (Maalox) 30 ml PO Q4HR PRN PRN Reason: GI DISTRESS Stop: 04/29/18 00:30 Amlodipine Besylate (Norvasc) 10 mg PO DAILY REPLACED BY [facility] Stop: 04/29/18 08:59 Last Admin: 03/09/18 10:03 Dose: 10 mg Aspirin (Aspirin Chewable) 81 mg PO DAILY [facility] Stop: 04/29/18 08:59 Last Admin: 03/09/18 09:58 Dose: 81 mg Atorvastatin Calcium (Lipitor) 10 mg PO HS REPLACED BY [facility] Stop: 04/29/18 20:59 Last Admin: 03/09/18 20:54 Dose: 10 mg Benazepril HCl (Lotensin) 10 mg PO DAILY GLENIS Stop: 04/29/18 08:59 Last Admin: 03/09/18 09:59 Dose: 10 mg Divalproex Sodium (Depakote Er) 250 mg PO Q12HR GLENIS PRN Reason: Protocol Stop: 05/03/18 20:59 Last Admin: 03/09/18 20:55 Dose: 250 mg Docusate Sodium (Colace) 100 mg PO DAILY [facility]EN[facility] Stop: 04/29/18 08:59 Last Admin: 03/09/18 09:58 Dose: 100 mg Donepezil HCl (Aricept) 10 mg PO HS REPLACED BY [facility] Stop: 04/29/18 20:59 Last Admin: 03/09/18 20:54 Dose: 10 mg Insulin Aspart (Novolog Insulin Sliding Scale) 0 units SUBQ ACHS GLENIS PRN Reason: Protocol Stop: 04/29/18 07:29 Last Admin: 03/10/18 06:29 Dose: Not Given Lorazepam (Ativan) 0.5 mg PO Q4HR PRN; Protocol PRN Reason: Anxiety Stop: 03/30/18 00:30 Last Admin: 03/08/18 09:59 Dose: 0.5 mg Magnesium Hydroxide (Milk Of Magnesia) 30 ml PO HS PRN PRN Reason: Constipation Memantine (Namenda) 10 mg PO BID REPLACED BY [facility] Stop: 05/08/18 08:59 Last Admin: 03/09/18 17:32 Dose: Not Given Multivitamins/Vitamin C (Theragran) 1 tab PO DAILY REPLACED BY [facility] Stop: 04/29/18 08:59 Last Admin: 03/09/18 09:59 Dose: 1 tab Nitroglycerin (Nitrostat) 0.4 mg SL Q5MIN PRN PRN Reason: Chest Pain Stop: 04/29/18 00:38 Senna (Senna) 8.6 mg PO HS REPLACED BY [facility] Stop: 04/29/18 20:59 Last Admin: 03/09/18 20:54 Dose: 8.6 mg Zolpidem Tartrate (Ambien) 5 mg PO HS PRN PRN Reason: Insomnia Stop: 04/29/18 00:30 Last Admin: 03/09/18 20:54 Dose: 5 mg General: Alert, Other (Confused) HEENT: Atraumatic Cardiovascular: Regular rate Lungs: Clear to auscultation Abdomen: Bowel sounds Extremities: Other (No edema) Neurological: Other (Unstable gait) Skin: Other (Warm and dry) Psych/Mental Status: Other (Confused not oriented) Assessment/Plan - Problem List Patient Problems: All Active Problems AGGRESSION AND BEHAVIORAL CHANGE (Acute) - Assessment Assessment: Current Active Problems Problem Status Onset AGGRESSION AND BEHAVIORAL CHANGE Acute Patient is awake, alert, confused,calm, in no acute distress. Dx: Psychosis, Schizophrenia, DM, HT, CAD, CHF, PVD. - Plan Plan: Patient is follow by Psychiatry. Will continue with SNF meds. Will continue to monitor. Nutritional Asmnt/Malnutr-PDOC - Dietary Evaluation Malnutrition Findings (Please click <Entered> for more info): Nutritional Asmnt/Malnutrition Start: 03/03/18 11: 41 Text: Status: Complete Freq: Document 03/03/18 11:41 SHAW (Rec: 03/03/18 11:46 [facility] Nutritional Asmnt/Malnutrition Patient General Information Nutritional Screening Moderate Risk Diagnosis psychosis NOS Pertinent Medical Hx/Surgical Hx HTN, DM, CAD, CHF, CVA/TIA, dyslipidemia, arthritis, dementia, depression Subjective Information Pt seen sitting in dining room waiting for lunch. Pt stated "I am hungry". No food preferemce provided. Per EMR PO intake 50-100%, avg 75%. On 03/02 PO intake 50-75% noted. Current Diet Order/ Nutrition Support [facility] soft ground, GILDA, CCHO Pertinent Medications colace, novolog, theragran, senna Pertinent Labs 02/27 Na 133 03/01-03/03 POC 78-127 Nutritional Hx/Data Height 1.63 m Height (Calculated Centimeters) 162.6 Current Weight (lbs) 56.699 kg Weight (Calculated Kilograms) 56.7 Weight (Calculated Grams) 10941.0 [place] Body Weight 120 Body Mass Index (BMI) 21.4 Weight Status Approriate GI Symptoms GI Symptoms None Last BM 4/3 Difficult in: None Skin Integrity/Comment: intact Current %PO Good (75-100%) Estimated Nutritional Goals BEE in Kcals: Using Current wt Calories/Kcals/Kg 25-30 Kcals Calculated 6966-6427 Protein: Using Current wt Protein g/k-1.2 Protein Calculated 57-68 Fluid: ml 1425-1710ml (1ml/kcal) Nutritional Problem No current Nutrition Prob Problem N/A Malnutrition Alert Protein-Calorie Malnutrition N/A Is there a minimum of two criteria No selected? Query Text:Check all the applicable criteria. A minimum of two criteria are recommended for diagnosis of either severe or non-severe malnutrition. Intervention/Recommendation Comments 1. Continue with [facility] soft ground diet as ordered. 2. Monitor PO intake, wt, labs and skin integrity 3. F/U as low risk in 7 days, 03/10 Expected Outcomes/Goals Expected Outcomes/Goals 1. PO intake to meet at least 75% of nutritional needs. 2. Wt stability, skin to remain intact, labs to approach WNL.
[2018-03-10] MEDS: Multivitamin Tab PO SCH (09:15)
[2018-03-10] MEDS: Aspirin 81mg Chewable Tab PO SCH (09:16)
--- NOTE | 2018-03-11 03:06 | Progress Notes ---
DATE: 03/10/2018 Case was discussed with staff of patient, reviewed records. The patient continues to be unpredictable, impulsive, needing redirection, internally preoccupied at times. Unable to make safe plan for self-care. He is compliant with the medication with no side effects. No sedation, no nausea. Depakote level is pending and we will continue outpatient group therapy, milieu therapy, adjust medication as needed. [facility]# [id number]
--- NOTE | 2018-03-12 02:08 | Progress Notes ---
DATE: 03/11/2018 This patient was discharged without my permission. I have no idea who gave the order for discharge. I talked to Sebastián who is in charge of the unit, I asked him to have an incident report on this as I was alarmed that this happened without my permission as I did not think of the time that he was ready to be discharged to a lesser level of care, so he will investigate and see what happened and do whatever it takes to make sure this does not happen again and hopefully the patient will be safe. JOB# [id number]
== END 2018-03-10 11:15 | DRG 884 ==
LOC: ER 18:02 → GERO2 20:50 → GERO 23:02
PROVIDERS: ADMIT Psychiatry & Neurology Psychiatry; ATTEND Psychiatry & Neurology Psychiatry
DX: F03.91 Unspecified dementia, unspecified severity, with behavioral disturbance (principal); I11.0 Hypertensive heart disease with heart failure; F29 Unspecified psychosis not due to a substance or known physiological condition; F41.9 Anxiety disorder, unspecified; F39 Unspecified mood [affective] disorder; I25.10 Atherosclerotic heart disease of native coronary artery without angina pectoris; I50.9 Heart failure, unspecified; E78.5 Hyperlipidemia, unspecified; M19.90 Unspecified osteoarthritis, unspecified site; Z66 Do not resuscitate; R00.1 Bradycardia, unspecified; R13.10 Dysphagia, unspecified; F20.9 Schizophrenia, unspecified; E11.51 Type 2 diabetes mellitus with diabetic peripheral angiopathy without gangrene; Z86.73 Personal history of transient ischemic attack (TIA), and cerebral infarction without residual deficits; Z79.4 Long term (current) use of insulin
CPT/HCPCS: 36415-UA; 71045-TC; 80053-TC; 80164-TC; 81001-TC; 82948-90; 84443-TC; 84484-TC; 85025-TC; 85610-TC; 93005; J1815; Z7610